=== PATIENT | male | born 1945 | race Caucasian/White ===

== ENCOUNTER → 2016-07-29 | Outpatient (CLI) | payer MEDICARE, OTHER ==
[~2016-07-29] MED LIST: ALBU8I INH; ALLO100T PO; ATOR20TA PO; ATOR20TA15 PO; CARV12.5 PO; CARV12.52 PO; CARV25TA PO; CIPR500T2 PO; DEPA500T PO; DIGO0.12 PO; DIVA500T3 PO; ENAL5 PO; FORACAP INH; FURO1TAB62 PO; FURO20TA PO; HUMU70IN SQ; HYDR-3516 PO; MULT-135 PO; NOVO7030P2 SQ; NOVOLOGSS SQ; NOVORP2 SQ; OLOD1AER2; PACE100T2 PO; RIVA15 PO; SACU1TAB PO; SPIR25 PO; ST JTAB PO; TAB-TAB PO; VASO10TA8 PO; VENTAER INH; VITA10003 PO; VITA2000 PO; XARE15TA PO; ZITH250T PO
[2016-07-29 10:55] LABS: BASOPHIL % 0.5 % (0.0-2.0); EOSINOPHIL # 0.3 TH/MM3 (0-0.4); EOSINOPHIL % 4.6 % (0.0-4.0); HEMATOCRIT 38.6 % (39.0-51.0); HEMO FLAGS DIFF FINAL; LYMPH % 36.1 % (9.0-44.0); LYMPHOCYTE # 2.2 TH/MM3 (1.0-4.8); MEAN CELL VOLUME 97.3 FL (80.0-100.0); MEAN CORPUSCULAR HEMOGLOBIN 33.1 PG (27.0-34.0); MEAN CORPUSCULAR HGB CONC 34.1 % (32.0-36.0); MONO % 8.8 % (0.0-8.0); PLATELET COUNT 190 TH/MM3 (150-450); RED BLOOD COUNT 3.97 MIL/MM3 (4.50-5.90); RED CELL DISTRIBUTION WIDTH 15.6 % (11.6-17.2)
[2016-07-29 11:18] LABS: BICARBONATE 29.5 MEQ/L (21.0-32.0); POTASSIUM 4.7 MEQ/L (3.5-5.1)
== END ==
LOC: CLAB 10:28
PROVIDERS: ATTEND Internal Medicine Nephrology
DX: I12.9 Hypertensive chronic kidney disease with stage 1 through stage 4 chronic kidney disease, or unspecified chronic kidney disease (principal); N18.3 Chronic kidney disease, stage 3 (moderate); E11.29 Type 2 diabetes mellitus with other diabetic kidney complication; E55.9 Vitamin D deficiency, unspecified
CPT/HCPCS: 36415; 80069; 82306; 83970; 85025

== ENCOUNTER → 2016-10-16 | Outpatient (CLI) | payer MEDICARE, OTHER ==
[2016-10-16 10:45] LABS: AUTOMATED NEUTROPHIL # 3.5 TH/MM3 (1.8-7.7); BASOPHIL % 0.6 % (0.0-2.0); EOSINOPHIL # 0.5 TH/MM3 (0-0.4); EOSINOPHIL % 7.7 % (0.0-4.0); HEMATOCRIT 38.2 % (39.0-51.0); HEMO FLAGS DIFF FINAL; LYMPH % 22.9 % (9.0-44.0); LYMPHOCYTE # 1.6 TH/MM3 (1.0-4.8); MEAN CORPUSCULAR HEMOGLOBIN 32.7 PG (27.0-34.0); MEAN CORPUSCULAR HGB CONC 33.7 % (32.0-36.0); MONO % 17.9 % (0.0-8.0); NEUT % 50.9 % (16.0-70.0); PLATELET COUNT 197 TH/MM3 (150-450); RED BLOOD COUNT 3.93 MIL/MM3 (4.50-5.90); RED CELL DISTRIBUTION WIDTH 14.4 % (11.6-17.2); WHITE BLOOD COUNT 6.9 TH/MM3 (4.0-11.0)
[2016-10-16 11:11] LABS: ALKALINE PHOSPHATASE 137 U/L (45-117); ALT (GPT) 29 U/L (12-78); ANION GAP 7 MEQ/L (5-15); AST (GOT) 34 U/L (15-37); BICARBONATE 27.6 MEQ/L (21.0-32.0); BLOOD UREA NITROGEN 21 MG/DL (7-18); CHLORIDE 104 MEQ/L (98-107); GLOMERULAR FILTRATION RATE 42 ML/MIN (>89); GLUCOSE,FASTING 154 MG/DL (74-99); POTASSIUM 4.2 MEQ/L (3.5-5.1); SODIUM (NA) 139 MEQ/L (136-145); TOTAL BILIRUBIN ADULT 0.7 MG/DL (0.2-1.0)
== END ==
LOC: CLAB 10:19
PROVIDERS: ATTEND Family Medicine
DX: E11.9 Type 2 diabetes mellitus without complications (principal); R68.83 Chills (without fever); R06.02 Shortness of breath
CPT/HCPCS: 36415; 80053; 83880; 85025

== ENCOUNTER 2016-10-19 17:42 | Emergency (ER) | payer MEDICARE, OTHER ==
[~2016-10-19] VITALS: Ht 170.2 cm; Wt 90.0 kg
[~2016-10-19 17:42] MED LIST changes: -ATOR20TA15 PO; -CARV25TA PO; -CIPR500T2 PO; -DIVA500T3 PO; -FURO1TAB62 PO; -FURO20TA PO; -HUMU70IN SQ; -HYDR-3516 PO; -MULT-135 PO; -NOVORP2 SQ; -OLOD1AER2; -SACU1TAB PO; -VASO10TA8 PO; -VENTAER INH; -VITA10003 PO; -VITA2000 PO; -XARE15TA PO
[2016-10-19 17:46] VITALS: BP 124/64; PULSE 77; RESP 17; TEMP 97.7; O2SAT 91
[2016-10-19] MEDS ORDERED: methylPREDNISolone SOD SUCC 125 MG/2 ML VIAL IVP ONE (18:00)
[2016-10-19] MEDS ORDERED: SODIUM CHLORIDE 0.9% FLUSH 10 ML FLUSH IVF PRN (18:00)
[2016-10-19 18:03] VITALS: RESP 20; O2SAT 97
--- NOTE | 2016-10-19 18:24 | PD ---
HPI Chief Complaint: Respiratory Symptoms Time Seen by Provider: 18:24 Travel History International Travel<30 days: No Contact w/Intl Traveler<30days: No Traveled to known affect area: No History of Present Illness HPI 71-year-old male with history of CHF, COPD, CAD, hypertension, previous NE, on Xarelto, diabetes, presents to the emergency department for evaluation of worsening shortness of breath over the last 2 weeks. Patient states that this is at night when he is lying flat. It is primarily between the hours of 2 and 5 in the morning. He has been seen and evaluated by Dr. Dixon his right of way appraiser and Dr. Sandoval his primary care provider. He has been reassured and told that "nothing is wrong." Patient came in today for another opinion stating that it continues to happen at night. Denies any chest pain or tightness. No recent illnesses, fever, or chills. Patient denies any pain. He has had no other symptoms to report at this time. PFSH Past Medical History Hx Anticoagulant Therapy: Yes (XARELTO) Asthma: Yes Blood Disorders: No Anxiety: Yes ( ) Depression: Yes ( ) Heart Rhythm Problems: No Cancer: No Cardiovascular Problems: Yes (STENT X1 2001, PACEMAKER/DEFIBRILLATOR 2014, NE 2001, CHF 2004 & NOVEMBER 2014) High Cholesterol: Yes Chemotherapy: No Chest Pain: Yes (IN 2001.) Congestive Heart Failure: Yes COPD: Yes Diabetes: Yes (INSULIN DEPENDENT TYPE 2) Patient Takes Glucophage: No Diminished Hearing: Yes (nusrat hearing aids) Endocrine: No Gastrointestinal Disorders: No Glaucoma: No Genitourinary: No Hepatitis: Yes (DENIES) Hiatal Hernia: No Hypertension: Yes Immune Disorder: No Musculoskeletal: No Neurologic: No Psychiatric: Yes Reproductive: No Respiratory: Yes Immunizations Current: Yes Myocardial Infarction: Yes (IN 2001, STENT PLACED.) Radiation Therapy: No Thyroid Disease: No Tetanus Vaccination: > 5 Years Past Surgical History Abdominal Surgery: Yes (SHRAPNEL REMOVED FROM LEFT LOWER QUAD IN "THE 60'S") AICD: Yes Arteriovenous Shunt: No Body Medical Devices: SHRAPNEL REMOVED LLQ IN THE S. Cardiac Surgery: Yes (STENT 2001) Ear Surgery: No Endocrine Surgery: No Eye Surgery: No Genitourinary Surgery: No Gynecologic Surgery: No Insulin Pump: No Joint Replacement: No Pacemaker: Yes (PPM/ICD 09/2014) Thoracic Surgery: No Tonsillectomy: Yes Other Surgery: Yes Social History Alcohol Use: Yes (rare) Tobacco Use: No (QUIT 1987) Substance Use: No Allergies-Medications (Allergen,Severity, Reaction): Coded Allergies: No Known Allergies (Verified , 10/19/16) Reported Meds & Prescriptions Reported Meds & Active Scripts Active Reported Ventolin Hfa 18 GM Inh (Albuterol Sulfate) 90 Mcg/Act Aer 2 Puff INH BID PRN Vitamin D-3 (Cholecalciferol) 1,000 Unit Tab 2,000 Units PO DAILY Xarelto (Rivaroxaban) 15 Mg Tab 15 Mg PO DAILY Multi Vitamin (Multiple Vitamin) 1 Tab Tab 1 Tab PO DAILY Humulin 70-30 Inj (Insulin NPH Isophane-Reg (Human) 70-30 Inj) 1,000 Unit/10 Ml Vial 15 SQ BID Novolin R Inj (Insulin Human Regular) 1,000 Unit/10 Ml Vial 5 Units SQ HS Novolin R Inj (Insulin Human Regular) 1,000 Unit/10 Ml Vial 4 Units SQ AC LUNCH Novolin R Inj (Insulin Human Regular) 1,000 Unit/10 Ml Vial 7 Units SQ DAILY Lasix (Furosemide) 20 Mg Tab 20 Mg PO DAILY Vasotec (Enalapril Maleate) 10 Mg Tab 10 Mg PO BID Digoxin 0.125 Mg Tab 0.125 Mg PO DAILY Carvedilol 12.5 Mg Tab 12.5 Mg PO DAILY@1600 Carvedilol 25 Mg Tab 25 Mg PO DAILY Atorvastatin (Atorvastatin Calcium) 20 Mg Tab 20 Mg PO HS Allopurinol 100 Mg Tab 100 Mg PO DAILY Foradil Aerolizer (Formoterol Fumarate) Cap 12.5 Mcg INH BID Review of Systems Except as stated in HPI: all other systems reviewed are Neg Physical Exam Narrative GENERAL: Well-nourished male patient, in no acute distress SKIN: Focused skin assessment warm/dry. HEAD: Atraumatic. Normocephalic. EYES: Pupils equal and round. No scleral icterus. No injection or drainage. ENT: No nasal bleeding or discharge. Mucous membranes pink and moist. NECK: Trachea midline. No JVD. CARDIOVASCULAR: Regular rate and rhythm. No murmur appreciated. RESPIRATORY: No accessory muscle use. Diminished bases but overall Clear to auscultation. Breath sounds equal bilaterally. GASTROINTESTINAL: Abdomen soft, non-tender, nondistended. Hepatic and splenic margins not palpable. MUSCULOSKELETAL: No obvious deformities. No clubbing. No cyanosis. No edema. NEUROLOGICAL: Awake and alert. No obvious cranial nerve deficits. Motor grossly within normal limits. Normal speech. PSYCHIATRIC: Appropriate mood and affect; insight and judgment normal. Data Data Last Documented VS Vital Signs Date Time Temp Pulse Resp B/P Pulse Ox O2 Delivery O2 Flow Rate FiO2 10/19/16 20:12 60 16 114/58 96 Nasal Cannula 2 10/19/16 18:31 21 10/19/16 17:46 97.7 Orders Complete Blood Count With Diff (10/19/16 17:55) Basic Metabolic Panel (Bmp) (10/19/16 17:55) B-Type Natriuretic Peptide (10/19/16 17:55) Act Partial Throm Time (Ptt) (10/19/16 17:55) Prothrombin Time / Inr (Pt) (10/19/16 17:55) Ckmb (Isoenzyme) Profile (10/19/16 17:55) Troponin I (10/19/16 17:55) Influenzae A/B Antigen (10/19/16 17:55) Iv Access Insert/Monitor (10/19/16 17:55) Electrocardiogram (10/19/16 17:55) Ecg Monitoring (10/19/16 17:55) Oximetry (10/19/16 17:55) Oxygen Administration (10/19/16 17:55) Chest, Single Ap (10/19/16 17:55) Sodium Chloride 0.9% Flush (Ns Flush) (10/19/16 18:00) Methylprednisolone So Succ Inj (Solumedr (10/19/16 18:00) Albuterol-Ipratropium Neb (Duoneb Neb) (10/19/16 18:00) Furosemide Inj (Lasix Inj) (10/19/16 20:00) Labs Laboratory Tests Test 10/19/16 18:00 White Blood Count 6.7 TH/MM3 Red Blood Count 3.85 MIL/MM3 Hemoglobin 12.5 GM/DL Hematocrit 37.3 % Mean Corpuscular Volume 96.7 FL Mean Corpuscular Hemoglobin 32.4 PG Mean Corpuscular Hemoglobin 33.5 % Concent Red Cell Distribution Width 14.5 % Platelet Count 217 TH/MM3 Mean Platelet Volume 8.6 FL Neutrophils (%) (Auto) 55.8 % Lymphocytes (%) (Auto) 18.3 % Monocytes (%) (Auto) 16.7 % Eosinophils (%) (Auto) 8.5 % Basophils (%) (Auto) 0.7 % Neutrophils # (Auto) 3.7 TH/MM3 Lymphocytes # (Auto) 1.2 TH/MM3 Monocytes # (Auto) 1.1 TH/MM3 Eosinophils # (Auto) 0.6 TH/MM3 Basophils # (Auto) 0.0 TH/MM3 CBC Comment DIFF FINAL Differential Comment Prothrombin Time 14.1 SEC Prothromb Time International 1.3 RATIO Ratio Activated Partial 34.8 SEC Thromboplast Time Sodium Level 140 MEQ/L Potassium Level 4.7 MEQ/L Chloride Level 103 MEQ/L Carbon Dioxide Level 29.4 MEQ/L Anion Gap 8 MEQ/L Blood Urea Nitrogen 16 MG/DL Creatinine 1.54 MG/DL Estimat Glomerular Filtration 45 ML/MIN Rate Random Glucose 171 MG/DL Calcium Level 8.8 MG/DL Total Creatine Kinase 61 U/L Troponin I 0.05 NG/ML B-Type Natriuretic Peptide 537 PG/ML MDM Medical Decision Making Medical Screen Exam Complete: Yes Emergency Medical Condition: Yes Medical Record Reviewed: Yes Differential Diagnosis CHF versus CHF exacerbation versus COPD versus pneumonia versus influenza versus bronchospasm versus GERD Narrative Course 71-year-old male presents to the emergency department for evaluation shortness breath associated with lying flat, mostly in the early hours of the morning. Patient as extensive cardiac and pulmonary history. He is followed by right of way appraiser and has good follow-up with his primary care provider. Chest x- ray shows lungs are clear with no infiltrates identified. CBC is without acute concern. BMP is with renal insufficiency, chronic for the patient. Troponin is 0.05. Patient has been found to have elevated troponin in the past. He is not having any chest pain or tightness. EKG is without any acute findings. Reviewed by my attending physician Dr. Nunez. BNP is 537. This is slightly elevated with compared to BNP drawn on October 16. At that time was 440. Patient will be given an additional dose of Lasix here in the emergency department. I discussed the patient my attending physician. He'll be discharged home to follow-up with Dr. Sandoval. He is comfortable with the plan of care. He agrees to return immediately with any acute worsening symptoms. Diagnosis Primary Impression: Orthopnea Additional Impressions: History of COPD CHF (congestive heart failure) Qualified Code: I50.9 - Chronic congestive heart failure, unspecified congestive heart failure type Referrals: Karla Sandoval Jr., MD Patient Instructions: Dyspnea (ED), General Instructions Additional Instructions: Follow-up with your primary care provider Follow-up with your right of way appraiser Continue medication as already prescribed Return immediately with any acute worsening of symptoms Med/Other Pt SpecificInfo: No Change to Meds Disposition: 01 DISCHARGE HOME Condition: Stable Betzaida Manley Oct 19, 2016 18:24
[2016-10-19 18:31] VITALS: O2SAT 94
[2016-10-19] MEDS: RESP: ALBUTEROL 2.5 MG/IPRATROPIUM 0.5 MG NEB (SCH) INH (18:31)
[2016-10-19] MEDS ORDERED: CARV12.52 PO (18:33)
[2016-10-19] MEDS ORDERED: NOVORP2 SQ ×3 (18:33)
[2016-10-19] MEDS ORDERED: DIGO0.12 PO (18:33)
[2016-10-19] MEDS ORDERED: VASO10TA8 PO (18:33)
[2016-10-19] MEDS ORDERED: VENTAER INH (18:33)
[2016-10-19] MEDS ORDERED: FURO1TAB62 PO (18:33)
[2016-10-19] MEDS ORDERED: XARE15TA PO (18:33)
[2016-10-19] MEDS ORDERED: CARV25TA PO (18:33)
[2016-10-19] MEDS ORDERED: VITA10003 PO (18:33)
[2016-10-19] MEDS ORDERED: HUMU70IN SQ (18:33)
[2016-10-19] MEDS ORDERED: ATOR20TA15 PO (18:33)
[2016-10-19] MEDS ORDERED: MULT-135 PO (18:33)
[2016-10-19] MEDS ORDERED: ALLO100T PO (18:33)
[2016-10-19 18:41] LABS: AUTOMATED NEUTROPHIL # 3.7 TH/MM3 (1.8-7.7); BASOPHIL % 0.7 % (0.0-2.0); EOSINOPHIL # 0.6 TH/MM3 (0-0.4); EOSINOPHIL % 8.5 % (0.0-4.0); HEMATOCRIT 37.3 % (39.0-51.0); HEMO FLAGS DIFF FINAL; LYMPH % 18.3 % (9.0-44.0); LYMPHOCYTE # 1.2 TH/MM3 (1.0-4.8); MEAN CELL VOLUME 96.7 FL (80.0-100.0); MEAN CORPUSCULAR HEMOGLOBIN 32.4 PG (27.0-34.0); MEAN CORPUSCULAR HGB CONC 33.5 % (32.0-36.0); MONO % 16.7 % (0.0-8.0); NEUT % 55.8 % (16.0-70.0); PLATELET COUNT 217 TH/MM3 (150-450); RED BLOOD COUNT 3.85 MIL/MM3 (4.50-5.90); RED CELL DISTRIBUTION WIDTH 14.5 % (11.6-17.2); WHITE BLOOD COUNT 6.7 TH/MM3 (4.0-11.0)
[2016-10-19 18:49] LABS: APTT (PATIENT) 34.8 SEC (24.3-30.1); INTERNATIONAL NORMALIZED RATIO 1.3 RATIO; PROTHROMBIN TIME - PATIENT 14.1 SEC (9.8-11.6)
[2016-10-19 19:00] VITALS: BP 116/58; PULSE 60; RESP 20; O2SAT 100
[2016-10-19 19:09] LABS: BICARBONATE 29.4 MEQ/L (21.0-32.0); POTASSIUM 4.7 MEQ/L (3.5-5.1)
--- NOTE | 2016-10-19 19:09 | RADRPT ---
EXAM DATE/TIME: 10/19/2016 18:21 [facility] COMPARISON: CHEST PA & LAT, August 24, 2015, 21:12. CHEST SINGLE AP, April 15, 2015, 9:17. INDICATIONS : Short of breath. MEDICAL HISTORY : Chronic obstructive pulmonary disease. SURGICAL HISTORY : Pacemaker. ENCOUNTER: Initial ACUITY: 1 week PAIN SCORE: 0/10 LOCATION: chest FINDINGS: A single view of the chest demonstrates the lungs to be symmetrically aerated without evidence of mas s, infiltrate or effusion. No evidence of pneumothorax. The cardiomediastinal contours are unremark able. Osseous structures are intact. Cardiac pacer with bipolar leads in place. CONCLUSION: The lungs are clear. No infiltrates seen. Khoi Kemp MD on October 19, 2016 at 19:06 Board Certified Radiologist. This report was verified electronically.
[2016-10-19] MEDS ORDERED: FUROSEMIDE 20 MG/2 ML VIAL IV PUSH ONE (20:00)
[2016-10-19 20:12] VITALS: BP 114/58; PULSE 60; RESP 16; O2SAT 96
--- NOTE | 2016-10-19 23:49 | EKG ---
Date Performed: 10/19/2016 Time Performed: 18:21:54 PTAGE: 71 years EKG: ELECTRONIC ATRIALand Ventricular PACEMAKER BORDERLINE RIGHT AXIS DEVIATION ABNORMAL ECG PREVIOUS TRACING : 12/11/2014 19.39 DOCTOR: Bernadette White Interpretating Date/Time 10/19/2016 23:48:35
[2016-11-21] MEDS ORDERED: CARV12.52 PO (14:34)
== END 2016-10-19 21:05 | disposition home or self-care (01) ==
LOC: NEPA 17:42
DX: R06.01 Orthopnea (principal); I50.9 Heart failure, unspecified; R94.31 Abnormal electrocardiogram [ECG] [EKG]; I10 Essential (primary) hypertension; E11.9 Type 2 diabetes mellitus without complications; I25.2 Old myocardial infarction; E78.00 Pure hypercholesterolemia, unspecified; H91.93 Unspecified hearing loss, bilateral; Z79.4 Long term (current) use of insulin; Z79.01 Long term (current) use of anticoagulants; Z87.09 Personal history of other diseases of the respiratory system; Z86.79 Personal history of other diseases of the circulatory system; Z86.59 Personal history of other mental and behavioral disorders; Z87.891 Personal history of nicotine dependence
CPT/HCPCS: 71010; 80048; 82550; 83880; 84484; 85025; 85610; 85730; 87804; 93005; 94640; 94664; 96374; 96375; 99285; J1940; J2930

== ENCOUNTER → 2016-11-07 | Outpatient (CLI) | payer MEDICARE, OTHER ==
[~2016-11-07] MED LIST changes: -ALBU8I INH; -ATOR20TA PO; +ATOR20TA15 PO; -CARV12.5 PO; +CARV25TA PO; +CIPR500T2 PO; -DEPA500T PO; +DIVA500T3 PO; -ENAL5 PO; +FURO1TAB62 PO; +FURO20TA PO; +HUMU70IN SQ; +HYDR-3516 PO; +MULT-135 PO; -NOVO7030P2 SQ; -NOVOLOGSS SQ; +NOVORP2 SQ; +OLOD1AER2; -PACE100T2 PO; -RIVA15 PO; +SACU1TAB PO; -SPIR25 PO; -ST JTAB PO; -TAB-TAB PO; +VASO10TA8 PO; +VENTAER INH; +VITA10003 PO; +VITA2000 PO; +XARE15TA PO; -ZITH250T PO
--- NOTE | 2016-11-13 08:30 | RSPPFT ---
DATE OF PROCEDURE: 11/07/16 COMMENTS: VOLUMES DYNAMIC: FVC normal; FEV1 moderately reduced. STATIC: RV moderately increased, FRC mildly increased, TLC normal. FLOWS: FEV1% moderately reduced; FEF 25-75 severely reduced. DIFFUSION: Severely reduced. FLOW VOLUME LOOP: Pattern of variable intrathoracic airways obstruction. IMPRESSION: Moderately severe obstructive ventilatory defect with a severe reduction in diffusion and moderate hyperinflation. There is no improvement post-bronchodilator.
== END ==
LOC: HRSP 09:26
PROVIDERS: ATTEND Internal Medicine
DX: J44.9 Chronic obstructive pulmonary disease, unspecified (principal)
CPT/HCPCS: 94060; 94620; 94726; 94729

== ENCOUNTER 2016-12-15 10:37 | Observation (INO) | payer MEDICARE, OTHER ==
[~2016-12-15] VITALS: Ht 172.7 cm; Wt 85.0 kg
[~2016-12-15 10:37] MED LIST changes: -CARV25TA PO; -CIPR500T2 PO; -DIVA500T3 PO; -FORACAP INH; -FURO20TA PO; -HYDR-3516 PO; -OLOD1AER2; -SACU1TAB PO; -VASO10TA8 PO; -VITA2000 PO
[2016-12-15 10:41] VITALS: BP 80/44; PULSE 76; RESP 15; TEMP 97.7; O2SAT 98
[2016-12-15 11:23] LABS: AUTOMATED NEUTROPHIL # 3.8 TH/MM3 (1.8-7.7); BASOPHIL % 0.6 % (0.0-2.0); EOSINOPHIL # 0.2 TH/MM3 (0-0.4); EOSINOPHIL % 2.4 % (0.0-4.0); HEMATOCRIT 39.4 % (39.0-51.0); HEMO FLAGS DIFF FINAL; LYMPH % 18.7 % (9.0-44.0); LYMPHOCYTE # 1.2 TH/MM3 (1.0-4.8); MEAN CELL VOLUME 96.6 FL (80.0-100.0); MEAN CORPUSCULAR HEMOGLOBIN 31.8 PG (27.0-34.0); MEAN CORPUSCULAR HGB CONC 32.9 % (32.0-36.0); MONO % 18.6 % (0.0-8.0); NEUT % 59.7 % (16.0-70.0); PLATELET COUNT 131 TH/MM3 (150-450); RED BLOOD COUNT 4.08 MIL/MM3 (4.50-5.90); RED CELL DISTRIBUTION WIDTH 16.2 % (11.6-17.2); WHITE BLOOD COUNT 6.4 TH/MM3 (4.0-11.0)
[2016-12-15 11:35] LABS: BACTERIA, URINE MANY /hpf; BLOOD, URINE LARGE (NEG); COMMENT (UR) CULTURE INDICATED; CULTURE IF INDICATED CULTURE INDICATED; GLUCOSE,URINE NEG (NEG); KETONE, URINE NEG (NEG); NITRITE,URINE NEG (NEG); PH, URINE 5.5 (5.0-8.5); URINE COLOR DARK-YELLOW (YELLW/STRAW)
[2016-12-15 11:38] LABS: ALT (GPT) 50 U/L (12-78); ANION GAP 9 MEQ/L (5-15); AST (GOT) 47 U/L (15-37); BICARBONATE 27.9 MEQ/L (21.0-32.0); BLOOD UREA NITROGEN 28 MG/DL (7-18); CHLORIDE 103 MEQ/L (98-107); GLOMERULAR FILTRATION RATE 30 ML/MIN (>89); POTASSIUM 4.2 MEQ/L (3.5-5.1); SODIUM (NA) 140 MEQ/L (136-145)
[2016-12-15 11:42] LABS: ALKALINE PHOSPHATASE 141 U/L (45-117); TOTAL BILIRUBIN ADULT 0.5 MG/DL (0.2-1.0)
[2016-12-15] MEDS ORDERED: cefTRIAXone INJ 1,000 MG in SODIUM CHLORIDE 0.9% INJ 100 ML IV ONE (12:15)
--- NOTE | 2016-12-15 12:16 | PD ---
HPI Chief Complaint: Abdominal Pain Time Seen by Provider: 10:47 Travel History International Travel<30 days: No Contact w/Intl Traveler<30days: No Traveled to known affect area: No History of Present Illness HPI This is a 71-year-old male who presents to the emergency department with 3 days of difficulty urinating, feeling like he has to strain to urinate associated with urgency and hesitancy with some dysuria. Today he says he feels a bandlike pressure around his abdomen, constant, moderate severity, with no associated fevers, chills or vomiting. He's never had pain like this before. PFSH Past Medical History Hx Anticoagulant Therapy: Yes (XARELTO) Asthma: Yes Blood Disorders: No Anxiety: Yes ( ) Depression: Yes ( ) Heart Rhythm Problems: No Cancer: No Cardiovascular Problems: Yes High Cholesterol: Yes Chemotherapy: No Chest Pain: Yes (IN 2001.) Congestive Heart Failure: Yes COPD: Yes Diabetes: Yes Patient Takes Glucophage: No Diminished Hearing: Yes (nusrat hearing aids) Endocrine: No Gastrointestinal Disorders: No Glaucoma: No Genitourinary: No Hepatitis: Yes (DENIES) Hiatal Hernia: No Hypertension: Yes Immune Disorder: No Musculoskeletal: No Neurologic: No Psychiatric: Yes Reproductive: No Respiratory: Yes Immunizations Current: Yes Myocardial Infarction: Yes (IN 2001, STENT PLACED.) Radiation Therapy: No Thyroid Disease: No Past Surgical History Abdominal Surgery: Yes (SHRAPNEL REMOVED FROM LEFT LOWER QUAD IN "THE 60'S") AICD: Yes Arteriovenous Shunt: No Body Medical Devices: SHRAPNEL REMOVED LLQ IN THE S. Cardiac Surgery: Yes (STENT 2001) Ear Surgery: No Endocrine Surgery: No Eye Surgery: No Genitourinary Surgery: No Gynecologic Surgery: No Insulin Pump: No Joint Replacement: No Pacemaker: Yes (PPM/ICD 09/2014) Thoracic Surgery: No Tonsillectomy: Yes Other Surgery: Yes Social History Alcohol Use: Yes (rare) Tobacco Use: No (QUIT 1987) Substance Use: No Allergies-Medications (Allergen,Severity, Reaction): Coded Allergies: Hydrocodone (Verified Allergy, Intermediate, Causes Itching, 11/21/16) Reported Meds & Prescriptions Reported Meds & Active Scripts Active Reported Carvedilol 12.5 Mg Tab 12.5 Mg PO BID Ventolin Hfa 18 GM Inh (Albuterol Sulfate) 90 Mcg/Act Aer 2 Puff INH BID PRN Vitamin D-3 (Cholecalciferol) 1,000 Unit Tab 2,000 Units PO DAILY Xarelto (Rivaroxaban) 15 Mg Tab 15 Mg PO DAILY Multi Vitamin (Multiple Vitamin) 1 Tab Tab 1 Tab PO DAILY Humulin 70-30 Inj (Insulin NPH Isophane-Reg (Human) 70-30 Inj) 1,000 Unit/10 Ml Vial 15 SQ BID Novolin R Inj (Insulin Human Regular) 1,000 Unit/10 Ml Vial 5 Units SQ HS Novolin R Inj (Insulin Human Regular) 1,000 Unit/10 Ml Vial 4 Units SQ AC LUNCH Novolin R Inj (Insulin Human Regular) 1,000 Unit/10 Ml Vial 7 Units SQ DAILY Lasix (Furosemide) 20 Mg Tab 20 Mg PO DAILY Digoxin 0.125 Mg Tab 0.125 Mg PO DAILY Atorvastatin (Atorvastatin Calcium) 20 Mg Tab 20 Mg PO HS Allopurinol 100 Mg Tab 100 Mg PO DAILY Review of Systems Except as stated in HPI: all other systems reviewed are Neg Physical Exam Narrative GENERAL:Well appearing, no acute distress SKIN: Focused skin assessment warm and dry. HEAD: Atraumatic. Normocephalic. EYES: Pupils equal and round. No injection or drainage. ENT: Moist mucous membranes NECK: Trachea midline. CARDIOVASCULAR: Regular rate and rhythm. No murmur appreciated. RESPIRATORY: Clear to auscultation. Breath sounds equal bilaterally. GASTROINTESTINAL: Abdomen soft, mildly tender to palpation in the suprapubic region with no rebound or guarding. MUSCULOSKELETAL: No obvious deformities. NEUROLOGICAL: Awake and alert. No obvious cranial nerve deficits. Moving all extremities. PSYCHIATRIC: Appropriate mood and affect; insight and judgment normal. Data Data Last Documented VS Vital Signs Date Time Temp Pulse Resp B/P Pulse Ox O2 Delivery O2 Flow Rate FiO2 12/15/16 10:41 97.7 76 15 80/44 98 Orders Ed Poc Ultrasound (12/15/16 ) Electrocardiogram (12/15/16 ) Complete Blood Count With Diff (12/15/16 11:01) Comprehensive Metabolic Panel (12/15/16 11:01) ^ Insert Iv (12/15/16 11:01) Urinalysis - C+S If Indicated (12/15/16 11:01) Troponin I (12/15/16 11:01) Urinary Catheter Insert/Apply (12/15/16 11:01) Urine Culture (12/15/16 11:15) Ct Abd/Pel W/O Iv Contrast (12/15/16 ) Ceftriaxone Inj (Rocephin Inj) (12/15/16 12:15) Sodium Chlor 0.9% 1000 Ml Inj (Ns 1000 M (12/15/16 12:45) Sodium Chlorid 0.9% 500 Ml Inj (Ns 500 M (12/15/16 12:45) Lactic Acid (12/15/16 13:02) Admit Order (Ed Use Only) (12/15/16 13:03) Labs Laboratory Tests Test 12/15/16 11:15 White Blood Count 6.4 TH/MM3 Red Blood Count 4.08 MIL/MM3 Hemoglobin 13.0 GM/DL Hematocrit 39.4 % Mean Corpuscular Volume 96.6 FL Mean Corpuscular Hemoglobin 31.8 PG Mean Corpuscular Hemoglobin 32.9 % Concent Red Cell Distribution Width 16.2 % Platelet Count 131 TH/MM3 Mean Platelet Volume 9.3 FL Neutrophils (%) (Auto) 59.7 % Lymphocytes (%) (Auto) 18.7 % Monocytes (%) (Auto) 18.6 % Eosinophils (%) (Auto) 2.4 % Basophils (%) (Auto) 0.6 % Neutrophils # (Auto) 3.8 TH/MM3 Lymphocytes # (Auto) 1.2 TH/MM3 Monocytes # (Auto) 1.2 TH/MM3 Eosinophils # (Auto) 0.2 TH/MM3 Basophils # (Auto) 0.0 TH/MM3 CBC Comment DIFF FINAL Differential Comment Urine Color DARK-YELLOW Urine Turbidity CLOUDY Urine pH 5.5 Urine Specific [place] 1.019 Urine Protein 100 mg/dL Urine Glucose (UA) NEG mg/dL Urine Ketones NEG mg/dL Urine Occult Blood LARGE Urine Nitrite NEG Urine Bilirubin NEG Urine Urobilinogen 2.0 MG/DL Urine Leukocyte Esterase LARGE Urine RBC /hpf Urine WBC /hpf Urine WBC Clumps MANY Urine Bacteria MANY /hpf Microscopic Urinalysis Comment CULTURE INDICATED Sodium Level 140 MEQ/L Potassium Level 4.2 MEQ/L Chloride Level 103 MEQ/L Carbon Dioxide Level 27.9 MEQ/L Anion Gap 9 MEQ/L Blood Urea Nitrogen 28 MG/DL Creatinine 2.16 MG/DL Estimat Glomerular Filtration 30 ML/MIN Rate Random Glucose 220 MG/DL Calcium Level 8.4 MG/DL Total Bilirubin 0.5 MG/DL Aspartate Amino Transf 47 U/L (AST/SGOT) Alanine Aminotransferase 50 U/L (ALT/SGPT) Alkaline Phosphatase 141 U/L Troponin I 0.03 NG/ML Total Protein 6.8 GM/DL Albumin 2.8 GM/DL MDM Medical Decision Making Medical Screen Exam Complete: Yes Emergency Medical Condition: Yes Interpretation(s) Afebrile, no tachycardia, normotensive No leukocytosis Mild renal insufficiency Lactic acid is 1.2 Troponin is 0.03 Urinalysis: Infection Differential Diagnosis Urinary tract infection, obstructive uropathy, aortic aneurysm, myocardial infarction Narrative Course This is a 71-year-old male who presents to the emergency department with difficulty urinating and bandlike pain around his abdomen. On arrival he had a low blood pressure which was concerning to me for a possible ruptured abdominal aortic aneurysm. I performed a bedside ultrasound which was reassuring. We obtained a post void residual which was normal. Labs are obtained which were reassuring with the exception of worsening renal insufficiency. Patient also has evidence of a urinary tract infection. Given his isolated low blood pressure on arrival, worsening renal insufficiency and urinary tract infection I think it's reasonable to keep the patient for IV antibiotics and gentle IV hydration. He does have cardiomyopathy which makes his hydration more complicated and I think he would benefit from observation in the hospital. Diagnosis Primary Impression: Cystitis Admitting Information Admitting Physician Requests: Observation Candice Nixon MD December 15, 2016 12:15
--- NOTE | 2016-12-15 12:19 | RADRPT ---
EXAM DATE/TIME: 12/15/2016 12:01 [facility] COMPARISON: No previous studies available for comparison. INDICATIONS : Low abdomen pain. trouble urinating and constipation ORAL CONTRAST: No oral contrast ingested. RADIATION DOSE: 13.17 CTDIvol (mGy) MEDICAL HISTORY : Congestive heart failure. Hypertension. Hepatitis. SURGICAL HISTORY : None. ENCOUNTER: Initial ACUITY: 1 day PAIN SCALE: 6/10 LOCATION: Bilateral lower quadrant TECHNIQUE: Volumetric scanning of the abdomen and pelvis was performed. Using automated exposure control and ad justment of the mA and/or kV according to patient size, radiation dose was kept as low as reasonably achievable to obtain optimal diagnostic quality images. FINDINGS: LOWER LUNGS: The visualized lower lungs are clear. Cardiac pacing wire is present in the right heart. LIVER: Diffuse mild low density without lesion. There is no dilation of the biliary tree. No calcified gal lstones. SPLEEN: Mildly enlarged measuring 13.5 cm in length. PANCREAS: Within normal limits. KIDNEYS: Normal in size and shape. There is no mass, stone, or hydronephrosis. ADRENAL GLANDS: Within normal limits. VASCULAR: There is no aortic aneurysm. There is mild atherosclerotic disease. BOWEL/MESENTERY: The stomach, small bowel, and colon demonstrate no acute abnormality. There is no free intraperitone al air or fluid. There is sigmoid diverticulosis. ABDOMINAL WALL: Within normal limits. RETROPERITONEUM: There is no lymphadenopathy. BLADDER: No wall thickening or mass. There is questionable mild induration of the pericystic fat. REPRODUCTIVE: Within normal limits. INGUINAL: There is no lymphadenopathy or hernia. MUSCULOSKELETAL: No acute osseous abnormality is visualized. CONCLUSION: 1. No definite abnormality is identified to explain the clinical symptoms. However, there is question able mild inflammation surrounding the urinary bladder which can be seen with cystitis. No significan t bladder wall thickening is present. 2. Nonacute findings include hepatic steatosis, mild splenomegaly, sigmoid diverticulosis, and mild a therosclerotic disease. Felice Wisdom MD on December 15, 2016 at 12:14 Board Certified Radiologist. This report was verified electronically.
[2016-12-15] MEDS ORDERED: SODIUM CHLOR 0.9% 1000 ML INJ 1,000 ML IV SCH (12:45)
[2016-12-15] MEDS ORDERED: SODIUM CHLORID 0.9% 500 ML INJ 500 ML IV ONE (12:45)
--- NOTE | 2016-12-15 13:05 | HHI.HP ---
[facility] Service Family Medicine Primary Care Physician Unknown Admission Diagnosis urinary tract infection Diagnoses: International Travel<30 Days: No Contact w/Intl Traveler<30days: No Known Affected Area: No History of Present Illness Roberth Lerma is a very pleasant 71 year old man presents to the ED with complaints of urgency, hesitancy, dribbling, and dysuria beginning about 4 days ago. He states he woke up at night about 4 days ago around 02:00 with incredible urgency to urinate however once getting to the restroom reports hesitancy. He states his dysuria also started around this time as well. He states all of these symptoms have been occurring more often than not over the past 4 days. He denies any fevers, chills, night sweats. Denies hematuria. He states he had been having a band-like sensation around his mid-to-low abdomen, he states he currently does not feel this sensation. He describes this as pressure like, nonradiating, not sharp in nature. He denies any other significant abdominal pain recently. He denies any issues with his prostate in the past or issues urinating prior to four days ago. He states he had his prostate checked with a VANDANA a few months ago by his primary care physician Dr. Sandoval and was told he had a small prostate. He denies any recent nausea, vomiting, diarrhea. He does endorse constipation over the past few days. He is unable to quantify how many BMs he has had over the past few days, but states his BMs have remained soft. Denies visible blood in stools or melena. Denies pain in RUQ or LUQ. Review of Systems Constitutional: DENIES: Fever, Chills, Dizziness, Change in appetite, Night Sweats Eyes: DENIES: Blurred vision, Diplopia, Double Vision Respiratory: DENIES: Cough, Sputum production, Shortness of breath Cardiovascular: DENIES: Chest pain, Palpitations Gastrointestinal: COMPLAINS OF: Abdominal pain, Constipation, DENIES: Black stools, Bloody stools, Diarrhea, Nausea, Vomiting Genitourinary: COMPLAINS OF: Urinary frequency, Urgency, Dysuria, DENIES: Urinary incontinence, Hematuria Integumentary: DENIES: Rash Hematologic/lymphatic: DENIES: Bruising Neurologic: DENIES: Headache, Localized weakness Past Family Social History Past Medical History A-fib s/p PPM implantation CHF (cardiac cath 10/13/2014 showed estimated EF of 15-20%) Cardiomyopathy s/p AICD placement EF of 15% CAD s/p stenting of the LAD in 2001 Anxiety Depression HLD HTN CKD DM Past Surgical History AICD Stent placement Tonsillectomy Allergies: Coded Allergies: Hydrocodone (Verified Allergy, Intermediate, Causes Itching, 11/21/16) Family History FH of CAD Social History Cigarette smoking: previously smoked 1.5-2 PPD for about 20 years; quit in 1985 Etoh intake: reports he only drinks on special social occasions about once or twice a year Illicit drug use: denies Lives in the [facility] with his , step-daughter, son and his son's girlfriend Physical Exam Vital Signs Vital Signs Date Time Temp Pulse Resp B/P Pulse Ox O2 Delivery O2 Flow Rate FiO2 12/15/16 10:41 97.7 76 15 80/44 98 Physical Exam GENERAL: NAD, lying comfortably in bed NEURO: AOx3. Normal speech. photograph tinter grossly intact. SKIN: Warm and dry. No rashes or erythema. HEAD: Normocephalic. Atraumatic. EYES: PERRL. EOMI. No scleral icterus. No injection or drainage. ENT: No nasal drainage. Moist mucous membranes. No oral ulcers or lesions. NECK: Supple, trachea midline. No JVD or lymphadenopathy. CARDIOVASCULAR: Distant heart sounds. Regular rate and rhythm without any appreciable murmurs, rubs, or gallops. Peripheral pulses 2+. Capillary refill is about 2 seconds. RESPIRATORY: Breath sounds clear to auscultation and equal bilaterally, without wheezes, rales, or rhonchi. No accessory muscle use. GASTROINTESTINAL: Abdomen soft, very slightly tender just inferior to his umbilicus, nontender in other quadrants, nondistended, normal BS. No organomegaly or masses. No rebound tenderness. No guarding. MUSCULOSKELETAL: No edema, cyanosis, or clubbing. Normal range of motion. BACK: Nontender without obvious deformity. No CVA tenderness. Laboratory Laboratory Tests Test 12/15/16 11:15 White Blood Count 6.4 Red Blood Count 4.08 Hemoglobin 13.0 Hematocrit 39.4 Mean Corpuscular Volume 96.6 Mean Corpuscular Hemoglobin 31.8 Mean Corpuscular Hemoglobin 32.9 Concent Red Cell Distribution Width 16.2 Platelet Count 131 Mean Platelet Volume 9.3 Neutrophils (%) (Auto) 59.7 Lymphocytes (%) (Auto) 18.7 Monocytes (%) (Auto) 18.6 Eosinophils (%) (Auto) 2.4 Basophils (%) (Auto) 0.6 Neutrophils # (Auto) 3.8 Lymphocytes # (Auto) 1.2 Monocytes # (Auto) 1.2 Eosinophils # (Auto) 0.2 Basophils # (Auto) 0.0 CBC Comment DIFF FINAL Differential Comment Urine Color DARK-YELLOW Urine Turbidity CLOUDY Urine pH 5.5 Urine Specific [place] 1.019 Urine Protein 100 Urine Glucose (UA) NEG Urine Ketones NEG Urine Occult Blood LARGE Urine Nitrite NEG Urine Bilirubin NEG Urine Urobilinogen 2.0 Urine Leukocyte Esterase LARGE Urine RBC Urine WBC Urine WBC Clumps MANY Urine Bacteria MANY Microscopic Urinalysis Comment CULTURE INDICATED Sodium Level 140 Potassium Level 4.2 Chloride Level 103 Carbon Dioxide Level 27.9 Anion Gap 9 Blood Urea Nitrogen 28 Creatinine 2.16 Estimat Glomerular Filtration 30 Rate Random Glucose 220 Calcium Level 8.4 Total Bilirubin 0.5 Aspartate Amino Transf 47 (AST/SGOT) Alanine Aminotransferase 50 (ALT/SGPT) Alkaline Phosphatase 141 Troponin I 0.03 Total Protein 6.8 Albumin 2.8 Date/Time Procedure Status Source Growth 12/15/16 11:15 Urine Culture Received Urine Clean Catch Pending Result Diagram: 12/15/16 1115 12/15/16 1115 Imaging Last 48 hours Impressions Abdomen/Pelvis CT 12/15/16 0000 Signed Impressions: Service Date/Time: Thursday, December 15, 2016 12:01 - CONCLUSION: 1. No definite abnormality is identified to explain the clinical symptoms. However, there is questionable mild inflammation surrounding the urinary bladder which can be seen with cystitis. No significant bladder wall thickening is present. 2. Nonacute findings include hepatic steatosis, mild splenomegaly, sigmoid diverticulosis, and mild atherosclerotic disease. Felice Wisdom MD Septic Shock Reassessment Heart: Regular rate and rhythm Lungs: Clear Skin: Warm, Dry Peripheral Pulses: Bounding Right Radial Bounding Left Radial Bounding Right Dorsalis Pedis Bounding Left Dorsalis Pedis Bounding Right Posterior Tibial Bounding Left Posterior Tibial Capillary Refill: Other (~2 seconds) Assessment and Plan Assessment and Plan Roberth Lerma is a very pleasant 71 year old man presenting to the ED with complaints of urgency, hesitancy, dribbling, and dysuria without any fevers or chills beginning about 4 days ago. Code Status DNR/DNI Problem List: (1) Abnormal urinalysis Status: Acute Plan: - Unclear etiology at this time, consider UTI, BPH, prostatitis, obstructive uropathy - UA with 100 protein, large occult blood, large leukocyte esterase, many WBC clumps, many bacteria - Urine culture pending - Afebrile, no leukocytosis - Post void residual in the ED was normal - Obtain PSA - Consider urine cytology studies - Gentle IVF hydration with NS at 75 cc/hr given the patients cardiac history - Cardiac cath on 10/13/2014 showed an estimated EF of 15-20% (2) Acute kidney injury Status: Acute Plan: - Possibly prerenal from dehydration vs obstructive etiology - Cr 2.16 on admission - Baseline Cr ~1.5 - IVF hydration as above - Continue to monitor - CT abdomen/pelvis showed nml kidney size, no mass, stones, or hydronephrosis (3) Hypotension Status: Acute Plan: - BP 80/44 on admission - Pulse WNLs - BP remains low but stable with MAP > 65 s/p 500 cc bolus in the ED - Continue to monitor vitals q4h - Hold home Coreg (4) CHF (congestive heart failure) Status: Chronic Plan: - Cardiac cath on 10/13/2014 showed an estimated EF of 15-20% - Caution with IVF (5) DM (diabetes mellitus) Status: Chronic Plan: - Accuchecks ACHS - Levemir 5 units subq q12h - Low-dose ISS (6) Nutrition, metabolism, and development symptoms Status: Acute Plan: Fluids: as above Electrolytes: WNLs, continue to monitor Nutrition: 1800 ADA DVT ppx: On Xarelto 15 mg po daily Physician Certification 2 Midnight Certification Type: Admission for Inpatient Services Order for Inpatient Services The services are ordered in accordance with Medicare regulations or non- Medicare payer requirements, as applicable. In the case of services not specified as inpatient-only, they are appropriately provided as inpatient services in accordance with the 2-midnight benchmark. Estimated LOS (days): 2 days is the estimated time the patient will need to remain in the hospital, assuming treatment plan goals are met and no additional complications. Post-Hospital Plan: Home Jose Rafael Kiser MD R1 December 15, 2016 13:05
[2016-12-15 13:24] VITALS: BP 95/65; O2SAT 97
[2016-12-15] MEDS ORDERED: ACETAMINOPHEN 325 MG TAB PO PRN (14:00)
[2016-12-15] MEDS ORDERED: BISACODYL 10 MG SUPP RECTAL PRN (14:00)
[2016-12-15] MEDS ORDERED: NALOXONE HCL 0.4 MG/ML AMP IV PRN (14:00)
[2016-12-15] MEDS ORDERED: SODIUM CHLORIDE 0.9% FLUSH 10 ML FLUSH IV FLUSH PRN (14:00)
[2016-12-15] MEDS ORDERED: ONDANSETRON HCL 4 MG/2 ML VIAL IVP PRN (14:00)
[2016-12-15] MEDS ORDERED: LACTULOSE SYRUP 20 GM/30 ML CUP PO PRN (14:00)
[2016-12-15] MEDS ORDERED: MAGNESIUM HYDROXIDE SUSP 30 ML CUP PO PRN (14:00)
[2016-12-15] MEDS: DOCUSATE SODIUM 50 MG/SENNA 8.6 MG TAB PO SCH ×2 (14:00→20:43)
[2016-12-15] MEDS ORDERED: RESP: ALBUTEROL 2.5 MG/3 ML NEB (PRN) NEB (14:15)
[2016-12-15] MEDS: SODIUM CHLORIDE 0.9% FLUSH 10 ML FLUSH IV FLUSH SCH ×2 (14:20→20:43)
[2016-12-15] MEDS: SODIUM CHLOR 0.9% 1000 ML INJ 1,000 ML IV SCH (14:20)
--- NOTE | 2016-12-15 14:57 | EKG ---
Date Performed: 12/15/2016 Time Performed: 10:59:42 PTAGE: 71 years EKG: ELECTRONIC ATRIAL PACEMAKER INDETERMINATE AXIS INTRAVENTRICULAR CONDUCTION DELAY ABNORMAL E CG NO SIGNIFICANT CHANGE FROM PRIOR ELECTROCARDIOGRAM. PREVIOUS TRACING : 12/15/2016 10.58 DOCTOR: Bro [place] Interpretating Date/Time 12/17/2016 10:34:10
[2016-12-15] MEDS ORDERED: SACU1TAB PO (15:24)
[2016-12-15] MEDS ORDERED: FURO20TA PO (15:24)
[2016-12-15] MEDS ORDERED: OLOD1AER2 (15:24)
[2016-12-15] MEDS ORDERED: HYDR-3516 PO (15:24)
[2016-12-15] MEDS ORDERED: DIVA500T3 PO (15:24)
[2016-12-15] MEDS ORDERED: VITA2000 PO (15:24)
[2016-12-15 16:53] VITALS: BP 97/55; PULSE 60; RESP 20; TEMP 98; O2SAT 96
[2016-12-15] MEDS: INSULIN ASPART SUPPLEMENTAL SCALE SQ SCH ×2 (18:25→20:47)
[2016-12-15 19:07] VITALS: BP 109/57; PULSE 60; RESP 16; TEMP 98; O2SAT 95
[2016-12-15] MEDS: INSULIN DETEMIR 100 UNITS/ML VIAL SQ SCH (20:44)
[2016-12-15] MEDS ORDERED: CARVEDILOL 12.5 MG TAB PO SCH (21:00)
[2016-12-15] MEDS ORDERED: ATORVASTATIN 20 MG TAB PO SCH (21:00)
[2016-12-16 00:59] VITALS: BP 110/64; PULSE 68; RESP 18; TEMP 98.4; O2SAT 95
[2016-12-16] MEDS: SODIUM CHLOR 0.9% 1000 ML INJ 1,000 ML IV SCH (03:14)
[2016-12-16 03:37] VITALS: BP 107/56; PULSE 64; RESP 18; TEMP 98.5; O2SAT 91
[2016-12-16] MEDS: INSULIN ASPART SUPPLEMENTAL SCALE SQ SCH (06:04)
[2016-12-16 06:36] LABS: AUTOMATED NEUTROPHIL # 3.4 TH/MM3 (1.8-7.7); BASOPHIL % 0.5 % (0.0-2.0); EOSINOPHIL # 0.2 TH/MM3 (0-0.4); EOSINOPHIL % 3.3 % (0.0-4.0); HEMATOCRIT 34.9 % (39.0-51.0); HEMO FLAGS DIFF FINAL; LYMPH % 26.8 % (9.0-44.0); LYMPHOCYTE # 1.8 TH/MM3 (1.0-4.8); MEAN CELL VOLUME 95.1 FL (80.0-100.0); MEAN CORPUSCULAR HEMOGLOBIN 32.2 PG (27.0-34.0); MEAN CORPUSCULAR HGB CONC 33.8 % (32.0-36.0); NEUT % 50.4 % (16.0-70.0); PLATELET COUNT 128 TH/MM3 (150-450); RED BLOOD COUNT 3.67 MIL/MM3 (4.50-5.90); RED CELL DISTRIBUTION WIDTH 15.8 % (11.6-17.2); WHITE BLOOD COUNT 6.7 TH/MM3 (4.0-11.0)
--- NOTE | 2016-12-16 06:50 | HHI.FPPN ---
Subjective Remarks Roberth Lerma is a 71yo gentleman with significant cardiac history who presented to ER with urinary symptoms = urgency, hesitancy, and dysuria x 4 days. No fevers, chills, night sweats, gross hematuria. + lower abdominal pressure, nonradiating. For further details, please see resident H&P. This morning, he reports that his urinary symptoms have resolved. His abdominal pain has resolved. He would like to go home. ROS: No fevers, no chills. No abominal pain (resolved). No dysuria (resolved). No hesitancy (resolved). All other systems reviewed are negative. PMH/PSxH/SocHx/FamHx: Per resident H&P. Significant for: A fib, CHF with EF 15- 20% in 2014, CAD with h/o LAD stenting, HTN, hyperlipidemia, CKD, DM II, anxiety , depression. PPM implantation, cardiac cath in 2014, ACID placement, tonsillectomy. Family history of CAD. 30-40 pack year smoking history, but quit in 1985. Rare alcohol use. Lives in [facility] with and family. Objective Vitals Vital Signs Date Time Temp Pulse Resp B/P Pulse Ox O2 Delivery O2 Flow Rate FiO2 12/16/16 03:37 98.5 64 18 107/56 91 12/16/16 00:59 98.4 68 18 110/64 95 12/15/16 19:07 98.0 60 16 109/57 95 12/15/16 16:53 98.0 60 20 97/55 96 12/15/16 15:58 Nasal Cannula 2.00 12/15/16 15:24 97 12/15/16 13:24 95/65 97 Room Air 12/15/16 10:41 97.7 76 15 80/44 98 I/O 12/15/16 12/15/16 12/15/16 12/16/16 12/16/16 12/16/16 07:00 15:00 23:00 07:00 15:00 23:00 Intake Total 250 ml Output Total 200 ml Balance 50 ml Intake Oral 50 ml IV Total 200 ml Output Urine Total 200 ml Result Diagram: 12/16/16 0600 12/15/16 1115 Objective Remarks GENERAL: in NAD, no resp distress. Nontoxic. Lying comfortably in bed. HEENT: NCAT, EOMI, no scleral icterus, no conjunctival injection. MMM. NECK: Supple, no meningeal signs CV: RRR, S1 S2. No murmurs CHEST/PULM: CTAB, no crackles, no wheezes ABD/GI: +BS, soft, nontender, nondistended EXT: 2+ DP pulses. No calf tenderness, no edema. NEURO: Awake, alert. Normal muscle tone. Grossly nonfocal. SKIN: No rashes, no jaundice. PSYCH: Mood and affect are appropriate. Speech fluent. : Mild R CVAT. No CVAT on left. exam performed by Dr. Kiser: Normal prostate exam - no tenderness, no enlargement, no bogginess, no nodules/masses palpable. A/P Assessment and Plan Roberth Lerma is a very pleasant 71 year old man presenting to the ED with complaints of urgency, hesitancy, dribbling, and dysuria without any fevers or chills beginning about 4 days ago. Discharge Planning Discharge home today. Urine culture pending - will follow up culture results and contact patient if indicated / antibiotic adjustment needs to be made. Attending Attestation Patient seen, examined, and discussed with resident team. Problem List: (1) Complicated UTI (urinary tract infection) Status: Acute Plan: Symptoms have improved. Consider UTI/pyelonephritis/cystitis vs proctitis vs other. Urine culture pending. Continue antibiotics x 14 day total treatment. Rectal exam is nonrevealing. (2) PSA elevation Status: Acute Plan: 03/2016 PSA 0.5; now 10. Discussed this with patient. No evidence of prostatitis on exam. Will treat UTI and recheck PSA as an outpatient. Patient may benefit from referral to urology as an outpatient. (3) Ofaun-vt-wxzqsex kidney injury Status: Resolved Plan: Creatinine is back to baseline after IV fluid. Will renally dose medications as indicated. (4) Hypotension Status: Resolved Plan: - BP 80/44 on admission; s/p 500 cc bolus in the ED - Blood pressure has improved this morning. (5) CHF (congestive heart failure) Status: Chronic Plan: - Cardiac cath on 10/13/2014 showed an estimated EF of 15-20% - Caution with IVF. He received 500cc bolus in ER. (6) DM (diabetes mellitus) Status: Chronic Plan: - Accuchecks ACHS - Levemir 5 units subq q12h - Low-dose ISS. (7) Normocytic anemia Status: Chronic Plan: Chronic secondary to chronic kidney disease. No obvious active bleeding. No intervention needed at this time. Problem Qualifiers (1) DM (diabetes mellitus): Liliana Lynn MD December 16, 2016 06:50 Liliana Lynn MD December 16, 2016 06:50 Problem List: (1) Abnormal urinalysis Status: Acute Plan: - Unclear etiology at this time, consider UTI, BPH, prostatitis, obstructive uropathy - UA with 100 protein, large occult blood, large leukocyte esterase, many WBC clumps, many bacteria - Urine culture pending - Afebrile, no leukocytosis - Post void residual in the ED was normal - Obtain PSA - Consider urine cytology studies - Gentle IVF hydration with NS at 75 cc/hr given the patients cardiac history - Cardiac cath on 10/13/2014 showed an estimated EF of 15-20% (2) Acute kidney injury Status: Acute Plan: - Possibly prerenal from dehydration vs obstructive etiology - Cr 2.16 on admission - Baseline Cr ~1.5 - IVF hydration as above - Continue to monitor - CT abdomen/pelvis showed nml kidney size, no mass, stones, or hydronephrosis (3) Hypotension Status: Acute Plan: - BP 80/44 on admission - Pulse WNLs - BP remains low but stable with MAP > 65 s/p 500 cc bolus in the ED - Continue to monitor vitals q4h - Hold home Coreg (4) CHF (congestive heart failure) Status: Chronic Plan: - Cardiac cath on 10/13/2014 showed an estimated EF of 15-20% - Caution with IVF (5) DM (diabetes mellitus) Status: Chronic Plan: - Accuchecks ACHS - Levemir 5 units subq q12h - Low-dose ISS (6) Nutrition, metabolism, and development symptoms Status: Acute Plan: Fluids: as above Electrolytes: WNLs, continue to monitor Nutrition: 1800 ADA DVT ppx: On Xarelto 15 mg po daily Liliana Lynn MD December 16, 2016 06:50
[2016-12-16 07:08] LABS: ALKALINE PHOSPHATASE 144 U/L (45-117); ALT (GPT) 41 U/L (12-78); ANION GAP 7 MEQ/L (5-15); AST (GOT) 36 U/L (15-37); BICARBONATE 24.9 MEQ/L (21.0-32.0); BLOOD UREA NITROGEN 23 MG/DL (7-18); CHLORIDE 109 MEQ/L (98-107); GLOMERULAR FILTRATION RATE 50 ML/MIN (>89); POTASSIUM 4.1 MEQ/L (3.5-5.1); SODIUM (NA) 141 MEQ/L (136-145); TOTAL BILIRUBIN ADULT 0.4 MG/DL (0.2-1.0)
[2016-12-16 08:36] VITALS: BP 121/68; PULSE 64; RESP 20; TEMP 97.9; O2SAT 94
[2016-12-16] MEDS: SODIUM CHLORIDE 0.9% FLUSH 10 ML FLUSH IV FLUSH SCH (08:52)
[2016-12-16] MEDS ORDERED: DIGOXIN 0.125 MG TAB PO SCH (09:00)
[2016-12-16] MEDS ORDERED: RIVAROXABAN 15 MG TAB PO SCH (09:00)
[2016-12-16] MEDS ORDERED: CHOLECALCIFEROL (VIT D3) 1000 UNIT TAB PO SCH (09:00)
[2016-12-16] MEDS ORDERED: ALLOPURINOL 100 MG TAB PO SCH (09:00)
[2016-12-16] MEDS ORDERED: FUROSEMIDE 20 MG TAB PO SCH (09:00)
[2016-12-16] MEDS: DOCUSATE SODIUM 50 MG/SENNA 8.6 MG TAB PO SCH (09:09)
[2016-12-16] MEDS: INSULIN DETEMIR 100 UNITS/ML VIAL SQ SCH (09:09)
--- NOTE | 2016-12-16 09:32 | HHI.DCPOC ---
Discharge Care Plan Diagnosis: (1) Lfniq-yw-fagyfiz kidney injury (2) Cystitis (3) Acute kidney injury (4) Normocytic anemia (5) Abnormal urinalysis (6) Pyelonephritis (7) PSA elevation (8) Cardiomyopathy (9) Hypotension (10) CHF (congestive heart failure) (11) History of COPD (12) Seizure disorder (13) Diabetes (14) Coronary artery disease Goals to Promote Your Health * To prevent worsening of your condition and complications * To maintain your health at the optimal level Directions to Meet Your Goals Take your medications as prescribed Follow your dietary instruction Follow activity as directed Keep your appointments as scheduled Take your immunizations and boosters as scheduled If your symptoms worsen call your PCP, if no PCP go to Urgent Care Center or Emergency Room Smoking is Dangerous to Your Health. Avoid second hand smoke Call the 24-hour hour crisis hotline for domestic abuse at Clare Alves MD December 16, 2016 09:32
[2016-12-16] MEDS ORDERED: CIPR500T2 PO (09:36)
[2016-12-16] MEDS ORDERED: cefTRIAXone INJ 1,000 MG in SODIUM CHLORIDE 0.9% INJ 100 ML IV SCH (13:00)
== END 2016-12-16 12:12 | disposition home or self-care (01) ==
LOC: NEPC 10:37 → NEDA 13:04 → NEPGCP 15:36
PROVIDERS: ADMIT Family Medicine; ATTEND Family Medicine
DX: N39.0 Urinary tract infection, site not specified (principal); I13.0 Hypertensive heart and chronic kidney disease with heart failure and stage 1 through stage 4 chronic kidney disease, or unspecified chronic kidney disease; E11.22 Type 2 diabetes mellitus with diabetic chronic kidney disease; N18.9 Chronic kidney disease, unspecified; N17.9 Acute kidney failure, unspecified; I50.9 Heart failure, unspecified; D64.9 Anemia, unspecified; F41.9 Anxiety disorder, unspecified; R94.31 Abnormal electrocardiogram [ECG] [EKG]; E78.00 Pure hypercholesterolemia, unspecified; J44.9 Chronic obstructive pulmonary disease, unspecified; I48.91 Unspecified atrial fibrillation; E78.5 Hyperlipidemia, unspecified; I25.10 Atherosclerotic heart disease of native coronary artery without angina pectoris; I25.2 Old myocardial infarction; Z95.0 Presence of cardiac pacemaker; F32.9 Major depressive disorder, single episode, unspecified; Z87.891 Personal history of nicotine dependence; Z88.5 Allergy status to narcotic agent; Z79.01 Long term (current) use of anticoagulants; Z79.4 Long term (current) use of insulin; Z95.5 Presence of coronary angioplasty implant and graft; Z66 Do not resuscitate
CPT/HCPCS: 51702; 74176; 80053; 81001; 82948; 83605; 84153; 84484; 85025; 87077; 87086; 87186; 93005; 96374; 99285; G0378; J0696; J1815; J7030; J7040

== ENCOUNTER → 2017-04-16 | Outpatient (CLI) | payer MEDICARE, OTHER ==
[~2017-04-16] MED LIST changes: +DIFL0.0512 LEFT EYE; +DIVA500T3 PO; -FURO1TAB62 PO; +FURO20TA PO; +HYDR-3516 PO; -MULT-135 PO; +MULTTAB67 PO; +NEPA0.3D LEFT EYE; +OLOD1AER2; +SACU1TAB PO; +VIGA0.5D LEFT EYE; -VITA10003 PO; +VITA2000 PO; +[UNRECOGNIZED DRUG - CODE] PO
[2017-04-16 08:10] LABS: AUTOMATED NEUTROPHIL # 2.5 TH/MM3 (1.8-7.7); BASOPHIL % 0.3 % (0.0-2.0); EOSINOPHIL # 0.2 TH/MM3 (0-0.4); HEMATOCRIT 37.4 % (39.0-51.0); HEMO FLAGS DIFF FINAL; LYMPH % 32.1 % (9.0-44.0); LYMPHOCYTE # 1.5 TH/MM3 (1.0-4.8); MEAN CORPUSCULAR HEMOGLOBIN 32.7 PG (27.0-34.0); MONO % 10.4 % (0.0-8.0); NEUT % 53.2 % (16.0-70.0); PLATELET COUNT 126 TH/MM3 (150-450); RED BLOOD COUNT 3.77 MIL/MM3 (4.50-5.90); RED CELL DISTRIBUTION WIDTH 16.3 % (11.6-17.2); WHITE BLOOD COUNT 4.8 TH/MM3 (4.0-11.0)
[2017-04-16 08:56] LABS: ALT (GPT) 25 U/L (12-78); ANION GAP 5 MEQ/L (5-15); AST (GOT) 24 U/L (15-37); BICARBONATE 28.9 MEQ/L (21.0-32.0); BLOOD UREA NITROGEN 28 MG/DL (7-18); CHLORIDE 106 MEQ/L (98-107); GLOMERULAR FILTRATION RATE 42 ML/MIN (>89); GLUCOSE,FASTING 116 MG/DL (74-99); POTASSIUM 4.3 MEQ/L (3.5-5.1); SODIUM (NA) 140 MEQ/L (136-145)
[2017-04-16 09:06] LABS: ALKALINE PHOSPHATASE 95 U/L (45-117); HDL CHOLESTEROL 44.4 MG/DL (40.0-60.0); LDL CHOLESTEROL 58 MG/DL (0-99); TOTAL BILIRUBIN ADULT 0.5 MG/DL (0.2-1.0)
[2017-04-16 09:23] LABS: HEMOGLOBIN A1a 1.3 %; HEMOGLOBIN A1b 0.8 %; HEMOGLOBIN Ao 84.4 %; HEMOGLOBIN F 0.9 %; HEMOGLOBIN LA1C 2.1 %; HEMOGLOBIN P3 3.9 %
== END ==
LOC: CLAB 07:28
PROVIDERS: ATTEND Ophthalmology
DX: I10 Essential (primary) hypertension (principal); I25.5 Ischemic cardiomyopathy; I50.9 Heart failure, unspecified; I25.10 Atherosclerotic heart disease of native coronary artery without angina pectoris; E11.9 Type 2 diabetes mellitus without complications; I48.91 Unspecified atrial fibrillation; N18.3 Chronic kidney disease, stage 3 (moderate); M10.9 Gout, unspecified; E78.5 Hyperlipidemia, unspecified
CPT/HCPCS: 36415; 80053; 80061; 83036; 84443; 84550; 85025

== ENCOUNTER → 2017-04-30 | Day surgery (SDC) | payer MEDICARE, OTHER ==
[~2017-04-30] VITALS: Ht 172.7 cm; Wt 87.2 kg
[~2017-04-30] MED LIST changes: +CHLORHEXIDINE GLUCONATE 2 % 1 PACK (2 CLOTHS) TOPICAL PRN; +EPINEPHrine HCL (1:1000) 1 MG/ML VIAL ONE; +EPINEPHrine-Lidocaine/BSS (PF/SF) 4-120 mg/16 mL OPTH SYR LEFT EYE ONE; +EPINEPHrine-Lidocaine/BSS (PF/SF) 4-120 mg/16 mL OPTH SYR ONE; +FLUMAZENIL 1 MG/10 ML VIAL IV ONE; +HYALURONIDASE/LIDOCAINE/EPINEPHRINE/BUPIVACAINE 4.5 ML SYR LEFT EYE ONE; +HYALURONIDASE/LIDOCAINE/EPINEPHRINE/BUPIVACAINE 6 ML SYR LEFT EYE ONE; +INSULIN HUMAN REGULAR 1,000 UNITS/10 ML VIAL SQ PRN; +LACTATED RINGER'S 1000 ML IV PRN; +LIDOCAINE HCL 1% PF 30 ML VIAL ONE; +LIDOCAINE HCL 2% JELLY 5 ML SYRINGE ONE; +METOPROLOL TARTRATE 25 MG TAB PO PRN; +MIDAZOLAM HCL 2 MG/2 ML VIAL ONE; +POVIDONE IODINE 5% (ANTISEPSIS KIT) 4 APPLICATIONS EACH NARE PRN; +SODIUM CHLORID 0.9% 500 ML IV PRN; +TOBRAMYCIN/DEXAMETHASONE OPTH OINT 3.5 GM TUBE ONE; +VISCOAT OPHT IRRIG SOLN 0.75 ML SYRINGE ONE
[2017-04-30] MEDS: PHENYLEPHRINE HCL 10% OPTH SOLN 5 ML BTL LEFT EYE SCH ×3 (07:50→08:00)
[2017-04-30] MEDS: CYCLOPENTOLATE HCL 1% OPHT SOLN 2 ML BTL LEFT EYE SCH ×3 (07:50→08:00)
[2017-04-30] MEDS: TROPICAMIDE 1% OPHT SOLN 15 ML BTL LEFT EYE SCH ×3 (07:50→08:00)
[2017-04-30] MEDS: TETRACAINE 0.5% OPTH SOLN 4 ML BTL LEFT EYE SCH ×3 (07:50→08:00)
[2017-04-30 09:45] VITALS: TEMP 98
--- NOTE | 2017-04-30 09:54 | PD.OP ---
Operative Report Date of Surgery: Apr 30, 2017 Preoperative Diagnosis: (1) Nuclear sclerotic cataract of left eye Postoperative Diagnosis: (1) Pseudophakia of left eye Procedure: phacoemulsification and intraocular lens implant left eye Anesthesia: MAC, local Surgeon: Katharine Nunez Belt Dresser(s): none Operation and Findings: Patient was consented for surgery and taken back to the operating room. He was prepped and draped in the usual sterile fashion for ophthalmic surgery. A wire lid speculum was placed in the left eye. A paracentesis incision was created at the 5 o'clock position on the limbus. Vision blue dye, intracameral epishugarcaine, and viscoelastic was injected into the anterior chamber. The main incision was created at the 2 o'clock position on the limbus with a 2.4 mm keratome. A continuous curvilinear capsulorrhexis was made on the anterior lens capsule. Hydrodissection was used to separate the lens from the capsule. Phacoemulsification was used to remove the lens nucleus material. Irrigation and aspiration was used to remove the remaining cortical material. The lens implant ([id number]) was placed in the capsular bag. Viscoelastic was removed with irrigation and aspiration. The incisions were irrigated and found to be watertight. Tobradex ointment, a patch, and shield were placed on the left eye. The patient was sent to PACU in stable condition. Katharine Nunez MD Apr 30, 2017 09:54
[2017-04-30 10:05] VITALS: BP 116/67; PULSE 66; RESP 16; O2SAT 96
== END | disposition home or self-care (01) ==
LOC: PHSDC 06:41
PROVIDERS: ATTEND Ophthalmology
DX: H25.12 Age-related nuclear cataract, left eye (principal); I10 Essential (primary) hypertension; J44.9 Chronic obstructive pulmonary disease, unspecified; E78.5 Hyperlipidemia, unspecified; M10.9 Gout, unspecified; Z96.1 Presence of intraocular lens; Z95.5 Presence of coronary angioplasty implant and graft; E11.9 Type 2 diabetes mellitus without complications
CPT/HCPCS: 00142; 66984; 82948; J0171; J2250; J7040; V2632

== ENCOUNTER → 2017-08-12 | Outpatient (CLI) | payer MEDICARE, OTHER ==
[~2017-08-12] MED LIST changes: -CHLORHEXIDINE GLUCONATE 2 % 1 PACK (2 CLOTHS) TOPICAL PRN; -EPINEPHrine HCL (1:1000) 1 MG/ML VIAL ONE; -EPINEPHrine-Lidocaine/BSS (PF/SF) 4-120 mg/16 mL OPTH SYR LEFT EYE ONE; -EPINEPHrine-Lidocaine/BSS (PF/SF) 4-120 mg/16 mL OPTH SYR ONE; -FLUMAZENIL 1 MG/10 ML VIAL IV ONE; -HYALURONIDASE/LIDOCAINE/EPINEPHRINE/BUPIVACAINE 4.5 ML SYR LEFT EYE ONE; -HYALURONIDASE/LIDOCAINE/EPINEPHRINE/BUPIVACAINE 6 ML SYR LEFT EYE ONE; -INSULIN HUMAN REGULAR 1,000 UNITS/10 ML VIAL SQ PRN; -LACTATED RINGER'S 1000 ML IV PRN; -LIDOCAINE HCL 1% PF 30 ML VIAL ONE; -LIDOCAINE HCL 2% JELLY 5 ML SYRINGE ONE; -METOPROLOL TARTRATE 25 MG TAB PO PRN; -MIDAZOLAM HCL 2 MG/2 ML VIAL ONE; +NACL5%O LEFT EYE; -POVIDONE IODINE 5% (ANTISEPSIS KIT) 4 APPLICATIONS EACH NARE PRN; -SODIUM CHLORID 0.9% 500 ML IV PRN; -TOBRAMYCIN/DEXAMETHASONE OPTH OINT 3.5 GM TUBE ONE; -VIGA0.5D LEFT EYE; -VISCOAT OPHT IRRIG SOLN 0.75 ML SYRINGE ONE
[2017-08-12 08:36] LABS: AUTOMATED NEUTROPHIL # 2.4 TH/MM3 (1.8-7.7); BASOPHIL % 0.5 % (0.0-2.0); EOSINOPHIL # 0.3 TH/MM3 (0-0.4); EOSINOPHIL % 5.5 % (0.0-4.0); HEMATOCRIT 38.4 % (39.0-51.0); HEMOGLOBIN 13.2 GM/DL (13.0-17.0); LYMPH % 42.6 % (9.0-44.0); LYMPHOCYTE # 2.7 TH/MM3 (1.0-4.8); MEAN CORPUSCULAR HEMOGLOBIN 34.2 PG (27.0-34.0); MEAN CORPUSCULAR HGB CONC 34.2 % (32.0-36.0); MEAN PLATELET VOLUME 9.3 FL (7.0-11.0); MONO % 12.6 % (0.0-8.0); MONOCYTE # 0.8 TH/MM3 (0-0.9); NEUT % 38.8 % (16.0-70.0); PLATELET COUNT 137 TH/MM3 (150-450); RED BLOOD COUNT 3.84 MIL/MM3 (4.50-5.90); RED CELL DISTRIBUTION WIDTH 16.7 % (11.6-17.2); WHITE BLOOD COUNT 6.2 TH/MM3 (4.0-11.0)
[2017-08-12 08:37] LABS: ALBUMIN 3.5 GM/DL (3.4-5.0); BICARBONATE 29.2 MEQ/L (21.0-32.0); BLOOD UREA NITROGEN 17 MG/DL (7-18); CALCIUM 8.7 MG/DL (8.5-10.1); CHLORIDE 105 MEQ/L (98-107); GLOMERULAR FILTRATION RATE 43 ML/MIN (>89); GLUCOSE,FASTING 157 MG/DL (74-99); PHOSPHORUS 3.4 MG/DL (2.5-4.9); SODIUM (NA) 140 MEQ/L (136-145)
[2017-08-12 10:44] LABS: HEMOGLOBIN A1C 7.7 % (4.3-6.0)
== END ==
LOC: CLAB 07:44
PROVIDERS: ATTEND Internal Medicine Nephrology
DX: I12.9 Hypertensive chronic kidney disease with stage 1 through stage 4 chronic kidney disease, or unspecified chronic kidney disease (principal); N18.3 Chronic kidney disease, stage 3 (moderate); E11.22 Type 2 diabetes mellitus with diabetic chronic kidney disease; E55.9 Vitamin D deficiency, unspecified
CPT/HCPCS: 36415; 80069; 82306; 83036; 83970; 85025

== ENCOUNTER 2017-09-03 00:54 | Inpatient (IN) | payer MEDICARE, OTHER ==
[2017-09-03] VITALS (10 sets, daily range): BP systolic 95–146; BP diastolic 53–78; PULSE 53–83; RESP 14–28; TEMP 97.3–97.9; O2SAT 88–97
[~2017-09-03] VITALS: Ht 170.2 cm; Wt 94.8 kg
[2017-09-03] MEDS ORDERED: SODIUM CHLORIDE 0.9% FLUSH 10 ML FLUSH IVF PRN (01:15)
[2017-09-03] MEDS ORDERED: NITROGLYCERIN 2% OINT 1 GM PACKET TOPICAL ONE (01:15)
[2017-09-03] MEDS ORDERED: FUROSEMIDE 100 MG/10 ML VIAL IV PUSH ONE (01:15)
[2017-09-03] MEDS ORDERED: NITROGLYCERIN 0.4 MG SL 25 TABS/BTL SL ONE (01:15)
--- NOTE | 2017-09-03 01:36 | RADRPT ---
EXAM DATE/TIME: 09/03/2017 01:25 [facility] COMPARISON: CHEST SINGLE AP, October 19, 2016, 18:21. INDICATIONS : Short of breath. MEDICAL HISTORY : None. SURGICAL HISTORY : Pacemaker. ENCOUNTER: Initial ACUITY: 1 day PAIN SCORE: 0/10 LOCATION: Bilateral chest FINDINGS: There is patchy basilar airspace disease and atelectasis. Pacer/ICD device again noted. Cardiomegaly. Degenerative changes of the spine. CONCLUSION: Patchy basilar airspace disease. Yousuf Love MD on September 03, 2017 at 1:34 Board Certified Radiologist. This report was verified electronically.
[2017-09-03 01:39] LABS: AUTOMATED NEUTROPHIL # 6.1 TH/MM3 (1.8-7.7); BASOPHIL % 0.5 % (0.0-2.0); EOSINOPHIL # 0.3 TH/MM3 (0-0.4); EOSINOPHIL % 2.8 % (0.0-4.0); HEMATOCRIT 39.2 % (39.0-51.0); HEMOGLOBIN 13.4 GM/DL (13.0-17.0); LYMPH % 20.2 % (9.0-44.0); LYMPHOCYTE # 1.9 TH/MM3 (1.0-4.8); MEAN CELL VOLUME 100.4 FL (80.0-100.0); MEAN CORPUSCULAR HEMOGLOBIN 34.2 PG (27.0-34.0); MEAN CORPUSCULAR HGB CONC 34.1 % (32.0-36.0); MEAN PLATELET VOLUME 9.7 FL (7.0-11.0); MONO % 10.4 % (0.0-8.0); NEUT % 66.1 % (16.0-70.0); PLATELET COUNT 123 TH/MM3 (150-450); RED CELL DISTRIBUTION WIDTH 16.6 % (11.6-17.2); WHITE BLOOD COUNT 9.3 TH/MM3 (4.0-11.0)
[2017-09-03 01:51] LABS: INTERNATIONAL NORMALIZED RATIO 1.2 RATIO; PROTHROMBIN TIME - PATIENT 12.1 SEC (9.8-11.6)
[2017-09-03 01:58] LABS: ALBUMIN 3.5 GM/DL (3.4-5.0); ALT (GPT) 93 U/L (12-78); AST (GOT) 57 U/L (15-37); BICARBONATE 25.4 MEQ/L (21.0-32.0); BLOOD UREA NITROGEN 22 MG/DL (7-18); CHLORIDE 106 MEQ/L (98-107); CREATININE 1.72 MG/DL (0.60-1.30); GLOMERULAR FILTRATION RATE 39 ML/MIN (>89); GLUCOSE,RANDOM 188 MG/DL (74-106); MAGNESIUM 1.8 MG/DL (1.5-2.5); SODIUM (NA) 140 MEQ/L (136-145)
[2017-09-03 02:02] LABS: ALKALINE PHOSPHATASE 83 U/L (45-117); TOTAL BILIRUBIN ADULT 0.9 MG/DL (0.2-1.0); TROPONIN I 0.13 NG/ML (0.02-0.05)
[2017-09-03 02:52] LABS: BILIRUBIN, URINE NEG (NEG); BLOOD, URINE NEG (NEG); GLUCOSE,URINE NEG (NEG); KETONE, URINE NEG (NEG); NITRITE,URINE NEG (NEG); URINE COLOR LIGHT-YELLOW (YELLW/STRAW); URINE LEUKOCYTE ESTERASE NEG (NEG)
[2017-09-03] MEDS ORDERED: ASPIRIN 325 MG TAB PO ONE (03:00)
[2017-09-03] MEDS ORDERED: oxyCODONE/ACETAMINOPHEN 5 MG/325 MG TAB PO ONE (03:30)
[2017-09-03] MEDS ORDERED: HEPARIN SODIUM - IV 10,000 UNITS/10 ML VIAL IV PUSH ONE (05:00)
[2017-09-03] MEDS ORDERED: HEPARIN-D5W 25,000 U/250 ML 250 ML IV PRN (05:00)
--- NOTE | 2017-09-03 05:01 | PD ---
HPI . Acute respiratory distress Chief Complaint: Respiratory Distress Time Seen by Provider: 01:07 Travel History International Travel<30 days: No Contact w/Intl Traveler<30days: No Traveled to known affect area: No History of Present Illness HPI 72-year-old male history of CHF, presents with having increased leg swelling of late, increased weight gain, increased orthopnea, with progressively worsening shortness of breath and orthopnea over the past 3 days. Patient took 60 mg of Lasix throughout the day today, with significant diuresis, and yet no significant improvement. Patient denies chest pain, fever, diaphoresis. Denies leg pain or swelling. PFSH Past Medical History Narrative Medical Extensive past medical history reviewed Hx Anticoagulant Therapy: Yes (XARELTO) Asthma: Yes Blood Disorders: No Anxiety: Yes ( ) Depression: Yes ( ) Heart Rhythm Problems: Yes (PPM/ICD 2013) Cancer: No Cardiovascular Problems: Yes (STENT, AICD ([facility]) 2013, [place] 2001) High Cholesterol: Yes Chemotherapy: No Chest Pain: Yes (IN 2001.) Congestive Heart Failure: Yes COPD: Yes Diabetes: Yes (TYPE 2 DIABETES) Patient Takes Glucophage: No Diminished Hearing: Yes (nusrat hearing aids) Endocrine: Yes Gastrointestinal Disorders: No Glaucoma: No Genitourinary: No Hepatitis: Yes (DENIES) Hiatal Hernia: No Hypertension: Yes Immune Disorder: No Implanted Vascular Access Dvce: Yes Medical other: Yes (GOUT, HYPERLIPIDEMIA) Musculoskeletal: Yes (LEFT SHOULDER ARTHRITIS) Neurologic: No Psychiatric: No Reproductive: No Respiratory: Yes (COPD, OXYGEN VIA NASAL CANNULA AT NIGHT) Immunizations Current: Yes Myocardial Infarction: Yes (IN 2001, STENT PLACED.) Radiation Therapy: No Sleep Apnea: No Thyroid Disease: No Past Surgical History Abdominal Surgery: Yes (SHRAPNEL REMOVED FROM LEFT LOWER QUAD IN "THE 60'S") AICD: Yes ([facility]) Arteriovenous Shunt: No Body Medical Devices: PPM/ICD Cardiac Surgery: Yes (STENT 2001, AICD ([facility])) Ear Surgery: No Endocrine Surgery: No Eye Surgery: No Genitourinary Surgery: No Gynecologic Surgery: No Insulin Pump: No Joint Replacement: No Pacemaker: Yes (PPM/ICD 09/2014 [facility]) Thoracic Surgery: No Tonsillectomy: Yes Other Surgery: Yes (LLQ SCHRAPNAL REMOVED, STENT) Social History Alcohol Use: Yes (rare) Tobacco Use: No (QUIT 1987) Substance Use: No Allergies-Medications (Allergen,Severity, Reaction): Coded Allergies: hydrocodone (Verified Allergy, Intermediate, Causes Itching, 09/03/17) Reported Meds & Prescriptions Reported Meds & Active Scripts Active Ilevro Opth Drops (Nepafenac) 0.3 % Soln 1 Drop LEFT EYE DAILY Durezol Opth (Difluprednate Opth) 0.05% Emul 1 Drop LEFT EYE QID Reported Sirisha 128 Opth Oint (Sodium Chloride) 5 % Oint 1 Applic LEFT EYE QID Pacerone (Amiodarone HCl) 100 Mg Tab 100 Mg PO DAILY Entresto (Sacubitril-Valsartan) 24-26 Mg Tab 1 Tab PO BID Multiple Vitamin 1 Tab 1 Tab PO DAILY Vitamin D3 (Cholecalciferol) 2,000 Unit Cap 2,000 Units PO DAILY Hydrocodone-Acetaminophen 5-325 mg Tab 1 Tab PO Q4H PRN Striverdi Respimat Inh (Olodaterol Inh) 2.5 Mcg/Act Aer Divalproex ER (Divalproex Sodium) 500 Mg Tab 1,000 Mg PO DAILY Furosemide 20 Mg Tab 20 Mg PO DAILY Carvedilol 12.5 Mg Tab 12.5 Mg PO BID Ventolin Hfa 18 GM Inh (Albuterol Sulfate) 90 Mcg/Act Aer 2 Puff INH BID PRN Xarelto (Rivaroxaban) 15 Mg Tab 15 Mg PO DAILY Humulin 70-30 Inj (Insulin NPH Isophane-Reg (Human) 70-30 Inj) 1,000 Unit/10 Ml Vial 15 SQ BID Novolin R Inj (Insulin Human Regular) 1,000 Unit/10 Ml Vial 7 Units SQ DAILY Digoxin 0.125 Mg Tab 0.125 Mg PO DAILY Atorvastatin (Atorvastatin Calcium) 20 Mg Tab 20 Mg PO HS Allopurinol 100 Mg Tab 100 Mg PO DAILY Narrative Medication Allergies and medications reviewed Review of Systems Except as stated in HPI: all other systems reviewed are Neg General / Constitutional: No: Fever Eyes: No: Visual changes HENT: No: Headaches Cardiovascular: Positive: Dyspnea on exertion, No: Chest Pain or Discomfort, Palpitations, Irregular Rhythm, Claudication Respiratory: Positive: Shortness of Breath, Orthopnea, No: Hemoptysis, Stridor , Night Sweats, Pleuritic Pain Gastrointestinal: No: Abdominal Pain Genitourinary: No: Dysuria Musculoskeletal: Positive: Edema, No: Pain Skin: No Rash Neurologic: No: Weakness Psychiatric: No: Depression Endocrine: No: Polydipsia Hematologic/Lymphatic: No: Easy Bruising Physical Exam Narrative GENERAL: Awake and alert, mild to moderate respiratory distress. SKIN: Warm and dry. No diaphoresis cyanosis pallor or rashes HEAD: Atraumatic. Normocephalic. EYES: Pupils equal and round. No scleral icterus. No injection or drainage. ENT: No nasal bleeding or discharge. Mucous membranes pink and moist. NECK: Trachea midline. No JVD. Supple full range of motion no stridor CARDIOVASCULAR: Regular rate and rhythm. RESPIRATORY: No accessory muscle use. Clear to auscultation. Breath sounds equal bilaterally. GASTROINTESTINAL: Abdomen soft, non-tender, nondistended. Hepatic and splenic margins not palpable. MUSCULOSKELETAL: Bilateral lower extremity edema 2+ equal bilateral NEUROLOGICAL: Awake and alert. No obvious cranial nerve deficits. Motor grossly within normal limits. Five out of 5 muscle strength in the arms and legs. Normal speech. PSYCHIATRIC: Appropriate mood and affect; insight and judgment normal. Data Data Last Documented VS Vital Signs Date Time Temp Pulse Resp B/P (MAP) Pulse Ox O2 Delivery O2 Flow Rate FiO2 09/03/17 05:16 60 18 105/64 (78) 96 2.00 09/03/17 01:08 Nasal Cannula 09/03/17 00:57 97.9 Orders Orders Complete Blood Count With Diff (09/03/17 01:07) Comprehensive Metabolic Panel (09/03/17 01:07) B-Type Natriuretic Peptide (09/03/17 01:07) Act Partial Throm Time (Ptt) (09/03/17 01:07) Prothrombin Time / Inr (Pt) (09/03/17 01:07) Magnesium (Mg) (09/03/17 01:07) Ckmb (Isoenzyme) Profile (09/03/17 01:07) Troponin I (09/03/17 01:07) Urinalysis - C+S If Indicated (09/03/17 01:07) Influenzae A/B Antigen (09/03/17 01:07) Iv Access Insert/Monitor (09/03/17 01:07) Electrocardiogram (09/03/17 01:07) Ecg Monitoring (09/03/17 01:07) Oximetry (09/03/17 01:07) Oxygen Administration (09/03/17 01:07) Chest, Single Ap (09/03/17 01:07) Sodium Chloride 0.9% Flush (Ns Flush) (09/03/17 01:15) Nitroglycerin Sl (Nitrostat Sl) (09/03/17 01:15) Nitroglycerin 2% Oint (Nitroglycerin 2% (09/03/17 01:15) Furosemide Inj (Lasix Inj) (09/03/17 01:15) CKMB (09/03/17 01:15) CKMB% (09/03/17 01:15) Aspirin (Aspirin) (09/03/17 03:00) Oxycodone-Acetamin 5-325 Mg (Percocet (09/03/17 03:30) Troponin I (09/03/17 03:37) Electrocardiogram (09/03/17 ) Heparin Inj (Heparin Inj) (09/03/17 05:00) Heparin-D5w 25,000 U/250 Ml (Heparin-D5w (09/03/17 05:00) Cbc No Diff, Includes Plts (09/06/17 06:00) Act Partial Throm Time (Ptt) (09/03/17 11:52) Occult Blood (Hemoccult) Stool (09/03/17 04:52) Act Partial Throm Time (Ptt) (09/03/17 11:17) Admit Order (Ed Use Only) (09/03/17 05:45) Labs Laboratory Tests Test 09/03/17 01:15 09/03/17 02:45 09/03/17 03:45 White Blood Count 9.3 TH/MM3 Red Blood Count 3.90 MIL/MM3 Hemoglobin 13.4 GM/DL Hematocrit 39.2 % Mean Corpuscular Volume 100.4 FL Mean Corpuscular Hemoglobin 34.2 PG Mean Corpuscular Hemoglobin Concent 34.1 % Red Cell Distribution Width 16.6 % Platelet Count 123 TH/MM3 Mean Platelet Volume 9.7 FL Neutrophils (%) (Auto) 66.1 % Lymphocytes (%) (Auto) 20.2 % Monocytes (%) (Auto) 10.4 % Eosinophils (%) (Auto) 2.8 % Basophils (%) (Auto) 0.5 % Neutrophils # (Auto) 6.1 TH/MM3 Lymphocytes # (Auto) 1.9 TH/MM3 Monocytes # (Auto) 1.0 TH/MM3 Eosinophils # (Auto) 0.3 TH/MM3 Basophils # (Auto) 0.0 TH/MM3 CBC Comment DIFF FINAL Differential Comment Prothrombin Time 12.1 SEC Prothromb Time International Ratio 1.2 RATIO Activated Partial Thromboplast Time 26.2 SEC Blood Urea Nitrogen 22 MG/DL Creatinine 1.72 MG/DL Random Glucose 188 MG/DL Total Protein 7.0 GM/DL Albumin 3.5 GM/DL Calcium Level 8.0 MG/DL Magnesium Level 1.8 MG/DL Alkaline Phosphatase 83 U/L Aspartate Amino Transf (AST/SGOT) 57 U/L Alanine Aminotransferase (ALT/SGPT) 93 U/L Total Bilirubin 0.9 MG/DL Sodium Level 140 MEQ/L Potassium Level 4.5 MEQ/L Chloride Level 106 MEQ/L Carbon Dioxide Level 25.4 MEQ/L Anion Gap 9 MEQ/L Estimat Glomerular Filtration Rate 39 ML/MIN Total Creatine Kinase 160 U/L Creatine Kinase MB 4.1 NG/ML Troponin I 0.13 NG/ML 0.25 NG/ML B-Type Natriuretic Peptide 1697 PG/ML Urine Color LIGHT-YELLOW Urine Turbidity CLEAR Urine pH 7.0 Urine Specific [place] 1.004 Urine Protein NEG mg/dL Urine Glucose (UA) NEG mg/dL Urine Ketones NEG mg/dL Urine Occult Blood NEG Urine Nitrite NEG Urine Bilirubin NEG Urine Urobilinogen LESS THAN 2.0 MG/DL Urine Leukocyte Esterase NEG Urine RBC LESS THAN 1 /hpf Urine WBC 1 /hpf Microscopic Urinalysis Comment CULT NOT INDICATED MDM Medical Decision Making Medical Screen Exam Complete: Yes Emergency Medical Condition: Yes Medical Record Reviewed: Yes Differential Diagnosis CHF, edema, myocardial infarction Narrative Course EKG: Sinus rhythm at 83 bpm with prolonged OH, widened QRS/IVCD versus combined left and right bundle Chest x-ray right lower effusion with pulmonary vascular congestion bilateral versus infiltrate right lower Laboratory examinations reviewed. Patient's troponins 0 hour is 0.13. Repeated 3 hours 0.25 incremental increase. Patient has no chest pain, markedly improved shortness of breath. Patient's troponin has doubled in that timeframe. Aspirin given the patient's presentation, heparin ACS protocol started Repeat EKG, much improved tracing, reveals patient has electronic pacemaker atrial sensed Case discussed with hospitalist service Dr. Pineda, admitted Diagnosis Primary Impression: CHF exacerbation Qualified Codes: I50.9 - Heart failure, unspecified Additional Impression: Non-STEMI (non-ST elevated myocardial infarction) Admitting Information Admitting Physician Requests: Admit Jose Hutson MD Sep 03, 2017 05:01
[2017-09-03] MEDS ORDERED: NALOXONE HCL 0.4 MG/ML AMP IV PUSH PRN (06:00)
[2017-09-03] MEDS ORDERED: SODIUM CHLORIDE 0.9% FLUSH 10 ML FLUSH IV FLUSH PRN (06:00)
[2017-09-03] MEDS ORDERED: ENOXAPARIN SODIUM 40 MG/0.4 ML SYRINGE SQ SCH (06:00)
[2017-09-03] MEDS: SODIUM CHLORIDE 0.9% FLUSH 10 ML FLUSH IV FLUSH SCH ×2 (08:17→21:00)
[2017-09-03] MEDS: FUROSEMIDE 40 MG/4 ML VIAL IV PUSH SCH ×2 (09:53→17:17)
[2017-09-03 11:52] LABS: TROPONIN I 0.26 NG/ML (0.02-0.05)
--- NOTE | 2017-09-03 15:40 | HHI.HP ---
[facility] Karla Sandoval MD Admission Diagnosis CHF Exacerbation, Non-STEMI Diagnoses: Chief Complaint: Shortness of breath Travel History International Travel<30 Days: No Contact w/Intl Traveler <30 Da: No Traveled to Known Affected Are: No History of Present Illness 72-year-old male with a medical history significant for CHF, CAD status post previous stents, A. fib, history of pacemaker/AICD placement, hypertension, diabetes who presented to the emergency room with complaint of worsening shortness of breath over the past few days. Patient admits that he went to [facility] a few days ago and had a lot of food buffet style. Since then he noticed he has been gaining weight and retaining water. He increased his Lasix up to 60 mg a day with some improvement in lower extremity edema but he continues to be short of breath with inability to lay flat. Workup in the emergency room was consistent with acute CHF exacerbation. Patient also has elevated cardiac enzymes and was started on heparin per ACS protocol. On my evaluation, he denies chest pain. He received IV Lasix in the consumed with good response. He reports that he is feeling better. Review of Systems Constitutional: COMPLAINS OF: Weight gain Respiratory: COMPLAINS OF: Shortness of breath Cardiovascular: COMPLAINS OF: Dyspnea on Exertion, Lower Extremity Edema, Orthopnea, DENIES: Chest pain, Palpitations Gastrointestinal: DENIES: Nausea, Vomiting Except as stated in HPI: all other systems reviewed are Neg Past Family Social History Past Medical History CHF, CAD status post previous stents, A. fib, history of pacemaker/AICD placement, hypertension, diabetes Past Surgical History Tonsillectomy AICD placement Reported Medications Reported Meds & Active Scripts Active Ilevro Opth Drops (Nepafenac) 0.3 % Soln 1 Drop LEFT EYE DAILY Durezol Opth (Difluprednate Opth) 0.05% Emul 1 Drop LEFT EYE QID Reported Sirisha 128 Opth Oint (Sodium Chloride) 5 % Oint 1 Applic LEFT EYE QID Pacerone (Amiodarone HCl) 100 Mg Tab 100 Mg PO DAILY Entresto (Sacubitril-Valsartan) 24-26 Mg Tab 1 Tab PO BID Multiple Vitamin 1 Tab 1 Tab PO DAILY Vitamin D3 (Cholecalciferol) 2,000 Unit Cap 2,000 Units PO DAILY Striverdi Respimat Inh (Olodaterol Inh) 2.5 Mcg/Act Aer Divalproex ER (Divalproex Sodium) 500 Mg Tab 1,000 Mg PO DAILY Furosemide 20 Mg Tab 20 Mg PO DAILY Carvedilol 12.5 Mg Tab 12.5 Mg PO BID Ventolin Hfa 18 GM Inh (Albuterol Sulfate) 90 Mcg/Act Aer 2 Puff INH BID PRN Xarelto (Rivaroxaban) 15 Mg Tab 15 Mg PO DAILY Humulin 70-30 Inj (Insulin NPH Isophane-Reg (Human) 70-30 Inj) 1,000 Unit/10 Ml Vial 15 SQ BID Novolin R Inj (Insulin Human Regular) 1,000 Unit/10 Ml Vial 7 Units SQ DAILY Digoxin 0.125 Mg Tab 0.125 Mg PO DAILY Atorvastatin (Atorvastatin Calcium) 20 Mg Tab 20 Mg PO HS Allopurinol 100 Mg Tab 100 Mg PO DAILY Allergies: Coded Allergies: hydrocodone (Verified Allergy, Intermediate, Causes Itching, 09/03/17) Family History Reviewed and found to be noncontributory. Social History Patient quit using tobacco over 30 years ago. Admits to occasional alcohol. Physical Exam Vital Signs Vital Signs Date Time Temp Pulse Resp B/P (MAP) Pulse Ox O2 Delivery O2 Flow Rate FiO2 09/03/17 11:32 53 14 95/53 (67) 93 Nasal Cannula 2.00 09/03/17 08:14 Nasal Cannula 2.00 09/03/17 08:09 60 14 110/64 (79) 96 Nasal Cannula 2.00 09/03/17 05:16 60 18 105/64 (78) 96 2.00 09/03/17 01:08 97 Nasal Cannula 2.00 09/03/17 01:05 83 28 88 09/03/17 00:57 97.9 83 24 146/78 (100) 94 Physical Exam GENERAL: This is a well-nourished, well-developed patient, in no apparent distress. SKIN: No rashes, ecchymoses or lesions. Cool and dry. HEAD: Atraumatic. Normocephalic. No temporal or scalp tenderness. EYES: Pupils equal round and reactive. Extraocular motions intact. No scleral icterus. No injection or drainage. ENT: Nose without bleeding, purulent drainage or septal hematoma. Throat without erythema, tonsillar hypertrophy or exudate. Uvula midline. Airway patent. NECK: Trachea midline. No JVD or lymphadenopathy. Supple, nontender, no meningeal signs. CARDIOVASCULAR: Regular rate and rhythm without murmurs, gallops, or rubs. RESPIRATORY: Faint bilateral basilar crackles. Otherwise the rest of the lung wilson are clear to auscultation. GASTROINTESTINAL: Abdomen soft, non-tender, nondistended. No hepato-splenomegaly , or palpable masses. No guarding. MUSCULOSKELETAL: 1+ bilateral lower extremity edema. Negative Homans sign bilaterally. NEUROLOGICAL: Awake and alert. Cranial nerves II through XII intact. Motor and sensory grossly within normal limits. Five out of 5 muscle strength in all muscle groups. Normal speech. Laboratory Laboratory Tests Test 09/03/17 01:15 09/03/17 02:45 09/03/17 03:45 09/03/17 10:57 White Blood Count 9.3 Red Blood Count 3.90 Hemoglobin 13.4 Hematocrit 39.2 Mean Corpuscular Volume 100.4 Mean Corpuscular Hemoglobin 34.2 Mean Corpuscular Hemoglobin Concent 34.1 Red Cell Distribution Width 16.6 Platelet Count 123 Mean Platelet Volume 9.7 Neutrophils (%) (Auto) 66.1 Lymphocytes (%) (Auto) 20.2 Monocytes (%) (Auto) 10.4 Eosinophils (%) (Auto) 2.8 Basophils (%) (Auto) 0.5 Neutrophils # (Auto) 6.1 Lymphocytes # (Auto) 1.9 Monocytes # (Auto) 1.0 Eosinophils # (Auto) 0.3 Basophils # (Auto) 0.0 CBC Comment DIFF FINAL Differential Comment Prothrombin Time 12.1 Prothromb Time International Ratio 1.2 Activated Partial Thromboplast Time 26.2 53.7 Blood Urea Nitrogen 22 Creatinine 1.72 Random Glucose 188 Total Protein 7.0 Albumin 3.5 Calcium Level 8.0 Magnesium Level 1.8 Alkaline Phosphatase 83 Aspartate Amino Transf (AST/SGOT) 57 Alanine Aminotransferase (ALT/SGPT) 93 Total Bilirubin 0.9 Sodium Level 140 Potassium Level 4.5 Chloride Level 106 Carbon Dioxide Level 25.4 Anion Gap 9 Estimat Glomerular Filtration Rate 39 Total Creatine Kinase 160 154 Creatine Kinase MB 4.1 Troponin I 0.13 0.25 0.26 B-Type Natriuretic Peptide 1697 Urine Color LIGHT-YELLOW Urine Turbidity CLEAR Urine pH 7.0 Urine Specific [place] 1.004 Urine Protein NEG Urine Glucose (UA) NEG Urine Ketones NEG Urine Occult Blood NEG Urine Nitrite NEG Urine Bilirubin NEG Urine Urobilinogen LESS THAN 2.0 Urine Leukocyte Esterase NEG Urine RBC LESS THAN 1 Urine WBC 1 Microscopic Urinalysis Comment CULT NOT INDICATED Date/Time Source Procedure Growth Status 09/03/17 01:05 Nasal Washing Influenza Types A,B Antigen (ZHENG) - Final NEGATIVE FOR FLU A AND B ANTIGEN.... Complete Result Diagram: 09/03/1711409/03/17114 Imaging Last Impressions Chest X-Ray 09/03/17106 Signed Impressions: Service Date/Time: Sunday, September 03, 2017 01:25 - CONCLUSION: Patchy basilar airspace disease. MD Alisa El VTE Risk Assessment Alisa VTE Risk Assessment: Mod/High Risk (score >= 2) Caprini Risk Assessment Model Point Value = 1 Point Value = 2 Point Value = 3 Point Value = 5 Age 41-60 Minor surgery BMI > 25 kg/m2 Swollen legs Varicose veins or History of unexplained or recurrent spontaneous Oral contraceptives or hormone replacement Sepsis (< 1 month) Serious lung disease, including pneumonia (< 1 month) Abnormal pulmonary function Acute myocardial infarction Congestive heart failure (< 1 month) History of inflammatory bowel disease Medical patient at bed rest Age 61-74 Arthroscopic surgery Major open surgery (> 45 min) Laparoscopic surgery (> 45 min) Malignancy Confined to bed (> 72 hours) Immobilizing plaster cast Central venous access Age >= 75 History of VTE Family history of VTE Factor V Leiden Prothrombin [id number] Lupus anticoagulant Anticardiolipin antibodies Elevated serum homocysteine Heparin-induced thrombocytopenia Other congenital or acquired thrombophilia Stroke (< 1 month) Elective arthroplasty Hip, pelvis, or leg fracture Acute spinal cord injury (< 1 month) Prophylaxis Regimen Total Risk Factor Score Risk Level Prophylaxis Regimen 0-1 Low Early ambulation 2 Moderate Order ONE of the following: *Sequential Compression Device (SCD) *Heparin 5000 units SQ BID 3-4 Higher Order ONE of the following medications: *Heparin 5000 units SQ TID *Enoxaparin/Lovenox 40 mg SQ daily (WT < 150 kg, CrCl > 30 mL/min) *Enoxaparin/Lovenox 30 mg SQ daily (WT < 150 kg, CrCl > 10-29 mL/min) *Enoxaparin/Lovenox 30 mg SQ BID (WT < 150 kg, CrCl > 30 mL/min) AND/OR *Sequential Compression Device (SCD) 5 or more Highest Order ONE of the following medications: *Heparin 5000 units SQ TID (Preferred with Epidurals) *Enoxaparin/Lovenox 40 mg SQ daily (WT < 150 kg, CrCl > 30 mL/min) *Enoxaparin/Lovenox 30 mg SQ daily (WT < 150 kg, CrCl > 10-29 mL/min) *Enoxaparin/Lovenox 30 mg SQ BID (WT < 150 kg, CrCl > 30 mL/min) AND *Sequential Compression Device (SCD) Assessment and Plan Problem List: (1) Acute on chronic systolic CHF (congestive heart failure) ICD Code: I50.23 - Acute on chronic systolic (congestive) heart failure Plan: Likely secondary to dietary indiscretion. Responding to IV Lasix. - Continue IV Lasix, strict I/O. Monitor weight. Continue home dose heart failure medications including Entresto, coreg. -2D echocardiogram was ordered. - Consult the patient's meal attendant for assistance. (2) Non-STEMI (non-ST elevated myocardial infarction) ICD Code: I21.4 - Non-ST elevation (NSTEMI) myocardial infarction Status: Acute Plan: Could be secondary to demand ischemia from CHF exacerbation. - Patient started on heparin per ACS protocol Cardiology consulted (3) CKD (chronic kidney disease) stage 3, GFR 30-59 ml/min ICD Code: N18.3 - Chronic kidney disease, stage 3 (moderate) Plan: Monitor closely with diuretics. Entresto is also a potent diuretic. Follow-up BMP in a.m. (4) Diabetes ICD Code: E11.9 - Diabetes mellitus Status: Chronic (5) Atrial fibrillation ICD Code: I48.91 - Unspecified atrial fibrillation Plan: History of pacemaker placement. Continue digoxin, amiodarone, Xarelto Physician Certification 2 Midnight Certification Type: Admission for Inpatient Services Order for Inpatient Services The services are ordered in accordance with Medicare regulations or non- Medicare payer requirements, as applicable. In the case of services not specified as inpatient-only, they are appropriately provided as inpatient services in accordance with the 2-midnight benchmark. Estimated LOS (days): 2 days is the estimated time the patient will need to remain in the hospital, assuming treatment plan goals are met and no additional complications. Post-Hospital Plan: Home Lisset Lorenzana MD Sep 03, 2017 15:40
[2017-09-03] MEDS ORDERED: ALBUTEROL SULFATE 90 MCG/ACT HFA 8 GM INHALER INH PRN (16:15)
[2017-09-03] MEDS ORDERED: ACETAMINOPHEN/HYDROcodone 325 MG/5 MG TAB PO PRN (16:15)
[2017-09-03 17:28] LABS: TROPONIN I 0.22 NG/ML (0.02-0.05)
[2017-09-03] MEDS ORDERED: PILL SPLITTER OTHER PRN (17:30)
[2017-09-03] MEDS ORDERED: DIFLUPREDNATE OPTH LEFT EYE SCH (18:00)
[2017-09-03] MEDS ORDERED: [UNRECOGNIZED DRUG - OTHER] LEFT EYE SCH (18:00)
--- NOTE | 2017-09-03 19:46 | EKG ---
Date Performed: 09/03/2017 Time Performed: 11:45:53 PTAGE: 72 years EKG: ELECTRONIC DUAL CHAMBER PACEMAKER WITH APPROPRIATE CAPTURE ABNORMAL ECG PREVIOUS TRACING : 09/03/2017 05.07 Since the prior tracing, there has been no significant shoemaker DOCTOR: Stalin Bradley Interpretating Date/Time 09/03/2017 19:44:42
[2017-09-03] MEDS ORDERED: ATORVASTATIN 20 MG TAB PO SCH (21:00)
--- NOTE | 2017-09-03 21:05 | EKG ---
Date Performed: 09/03/2017 Time Performed: 05:07:54 PTAGE: 72 years EKG: ELECTRONIC ATRIAL PACEMAKER MARKED LEFT AXIS DEVIATION INTRAVENTRICULAR CONDUCTION DELAY AB NORMAL ECG INTERPRETATION BASED ON A DEFAULT AGE OF 40 YEARS PREVIOUS TRACING : 12/15/2016 10.59 Since the prior tracing, there has been no significan t change DOCTOR: Stalin Bradley Interpretating Date/Time 09/03/2017 21:03:43
--- NOTE | 2017-09-03 21:21 | EKG ---
Date Performed: 09/03/2017 Time Performed: 01:06:15 PTAGE: 72 years EKG: Sinus rhythm WITH FIRST DEGREE AV BLOCK MARKED RIGHT AXIS DEVIATION INTRAVENTRICULAR CONDUCTION DELAY ABNORMAL EC G NO PREVIOUS TRACING DOCTOR: Stalin Bradley Interpretating Date/Time 09/03/2017 21:20:01
[2017-09-03] MEDS: CARVEDILOL 12.5 MG TAB PO SCH (21:57)
[2017-09-03] MEDS: SACUBITRIL/VALSARTAN 24 MG-26 MG TAB PO SCH (21:57)
--- NOTE | 2017-09-03 22:37 | MB ---
cc: ANDI RATLIFF MD DATE OF CONSULTATION 09/03/2017 DATE OF [address] Lisset Sheehan. REASON FOR CONSULTATION I was asked by Dr. Sheehan to evaluate the patient with congestive heart failure and coronary artery disease. HISTORY OF THE PRESENT ILLNESS Roberth Lerma is a very pleasant 72-year-old gentleman with past medical history significant for coronary artery disease, status post stent, paroxysmal atrial fibrillation, hypercholesterolemia and hypertension. He reports eating at a [employer] several days ago. He had surf and turf. A day later he noted progressive lower extremity swelling and shortness of breath with exertion. Over the next several days he had increased shortness of breath at rest and with exertion along with a progressive increase in his lower extremity edema. He increased his Lasix to 20 mg three times a day with some reduction in his edema and shortness of breath. However, yesterday because he had increased shortness of breath and inability to lay flat he sought emergency room evaluation. Emergency room evaluation showed chest x-ray patchy bibasilar airspace disease and atelectasis, cardiomegaly, mild CHF. ECG showed atrial paced rhythm, first-degree heart block, nonspecific intraventricular conduction delay / left bundle branch block. Pertinent laboratory data BNP 1697. Troponin 0.13, 0.25, 0.26, 0.22. Creatinine 1.72. Potassium 4.5, sodium 140. WBC 9.3, hemoglobin 13.4, hematocrit 39.2. MEDICATIONS Prior to admission: 1. Sirisha 128 ophthalmic solution. 2. Amiodarone 100 mg daily. 3. Entresto 24/26 milligrams twice a day. 4. Vitamin D. 5. Oxycodone / acetaminophen. 6. Lasix 20 milligrams daily. 7. Carvedilol 12.5 milligrams twice a day. 8. Ventolin MDI. 9. Xarelto 50 milligrams daily. 10. Novolin insulin. 11. Digoxin 0.125 milligrams daily. 12. Atorvastatin 20 milligrams daily. 13. Allopurinol 100 milligrams daily. ALLERGIES HYDROCODONE. PAST MEDICAL HISTORY As above. Additionally, he has: 1. Type 2 diabetes. 2. Gout. 3. COPD oxygen dependent at night. 4. Status post myocardial infarction 2001 and stent. PAST SURGICAL HISTORY 1. Status post shrapnel removed from left lower extremity is 1960s. 2. Status post AICD. SOCIAL HISTORY He does not smoke. He drinks alcohol only rarely / socially. No illicit drug use. REVIEW OF SYSTEMS As above. Twelve-point review of systems reviewed and noted. No recent fevers, chills, cough, sputum production. No recent gastrointestinal, genitourinary and neurologic symptoms. PHYSICAL EXAMINATION VITAL SIGNS: Temperature 97.7, pulse 59, respirations 18, blood pressure 114/75, O2 sat 97% 2 liters nasal cannula. GENERAL: He is in no acute distress, comfortable watching TV. HEENT: He is anicteric, PERRLA. No xanthelasmas. NECK: Flat JVD. No carotid bruits. LUNGS: With few bibasilar crackles. CARDIOVASCULAR: Regular rate and rhythm. 08/26 systolic murmur left lower sternal border. ABDOMEN: Soft and nontender. EXTREMITIES: With 2+ pitting edema. LABORATORY DATA As above. INR 1.2. IMPRESSION 1. Congestive heart failure due to dietary indiscretion, volume overload, clinically improved with IV Lasix diuresis. 2. Borderline elevated troponin levels of indeterminate significance in the setting of chronic renal insufficiency. 3. Chronic renal insufficiency. 4. Status post AICD, no discharge. 5. Hypertension, controlled. 6. Hypercholesterolemia. PLAN 1. Continue IV Lasix diuresis as systolic blood pressure and creatinine tolerate. 2. Will review echocardiogram and previous stress test from the office. He reports workup was done in the past 1-2 years. 3. All outpatient medications have been continued. 4. Hopefully can discharge in 24 to 48 hours. 5. No further cardiac workup anticipated. Thank you for allowing me to contribute to his care. Thank you for this consultation. MD ARUN Noonan/ADDISON /6:49 PM /10:04 PM
[2017-09-03] MEDS: oxyCODONE/ACETAMINOPHEN 5 MG/325 MG TAB PO PRN (23:05)
[2017-09-04] VITALS: BP 100/56; PULSE 61; RESP 19; TEMP 97.7; O2SAT 96
[2017-09-04 02:52] LABS: BASOPHIL % 0.4 % (0.0-2.0); EOSINOPHIL # 0.3 TH/MM3 (0-0.4); EOSINOPHIL % 4.3 % (0.0-4.0); HEMATOCRIT 36.6 % (39.0-51.0); HEMOGLOBIN 12.6 GM/DL (13.0-17.0); LYMPH % 35.4 % (9.0-44.0); LYMPHOCYTE # 2.2 TH/MM3 (1.0-4.8); MEAN CELL VOLUME 99.8 FL (80.0-100.0); MEAN CORPUSCULAR HEMOGLOBIN 34.3 PG (27.0-34.0); MEAN CORPUSCULAR HGB CONC 34.4 % (32.0-36.0); MEAN PLATELET VOLUME 9.4 FL (7.0-11.0); MONOCYTE # 0.7 TH/MM3 (0-0.9); NEUT % 47.9 % (16.0-70.0); PLATELET COUNT 114 TH/MM3 (150-450); RED BLOOD COUNT 3.67 MIL/MM3 (4.50-5.90); RED CELL DISTRIBUTION WIDTH 16.7 % (11.6-17.2); WHITE BLOOD COUNT 6.2 TH/MM3 (4.0-11.0)
[2017-09-04 03:02] LABS: BICARBONATE 33.3 MEQ/L (21.0-32.0); CALCIUM 8.3 MG/DL (8.5-10.1); CREATININE 1.8 MG/DL (0.60-1.30)
[2017-09-04 04:00] VITALS: BP 100/54; PULSE 60; RESP 18; TEMP 98.1; O2SAT 92
[2017-09-04 08:00] VITALS: BP 101/55; PULSE 60; RESP 16; TEMP 97.6; O2SAT 93
[2017-09-04] MEDS: SODIUM CHLORIDE 0.9% FLUSH 10 ML FLUSH IV FLUSH SCH (08:42)
[2017-09-04] MEDS: SACUBITRIL/VALSARTAN 24 MG-26 MG TAB PO SCH (08:44)
[2017-09-04] MEDS: CARVEDILOL 12.5 MG TAB PO SCH (08:47)
[2017-09-04] MEDS: oxyCODONE/ACETAMINOPHEN 5 MG/325 MG TAB PO PRN ×2 (08:50→14:30)
[2017-09-04] MEDS ORDERED: MULTIVITAMIN TAB PO SCH (09:00)
[2017-09-04] MEDS ORDERED: RIVAROXABAN 15 MG TAB PO SCH (09:00)
[2017-09-04] MEDS ORDERED: DIGOXIN 0.125 MG TAB PO SCH (09:00)
[2017-09-04] MEDS ORDERED: [UNRECOGNIZED DRUG - OTHER] LEFT EYE SCH (09:00)
[2017-09-04] MEDS ORDERED: AMIODARONE 200 MG TAB PO SCH (09:00)
[2017-09-04] MEDS ORDERED: CHOLECALCIFEROL (VIT D3) 1000 UNIT TAB PO SCH (09:00)
[2017-09-04] MEDS ORDERED: DIVALPROEX SODIUM E.R. 500 MG TAB PO SCH (09:00)
[2017-09-04] MEDS ORDERED: ALLOPURINOL 100 MG TAB PO SCH (09:00)
--- NOTE | 2017-09-04 09:57 | HHI.DCPOC ---
Discharge Care Plan Diagnosis: (1) Acute on chronic systolic CHF (congestive heart failure) (2) Elevated troponin (3) Diabetes (4) Atrial fibrillation Goals to Promote Your Health * To prevent worsening of your condition and complications * To maintain your health at the optimal level Directions to Meet Your Goals Take your medications as prescribed Follow your dietary instruction Follow activity as directed Keep your appointments as scheduled Take your immunizations and boosters as scheduled If your symptoms worsen call your PCP, if no PCP go to Urgent Care Center or Emergency Room Smoking is Dangerous to Your Health. Avoid second hand smoke Call the 24-hour hour crisis hotline for domestic abuse at Lisset Lorenzana MD Sep 04, 2017 09:57
--- NOTE | 2017-09-04 10:03 | HHI.PR ---
Subjective Remarks Patient reports he is feeling great today. He diuresed very well since presentation. No shortness of breath or chest pain. Feels great to go home. Objective Vitals Vital Signs Date Time Temp Pulse Resp B/P (MAP) Pulse Ox O2 Delivery O2 Flow Rate FiO2 09/04/17 08:00 97.6 60 16 101/55 (70) 93 09/04/17 04:00 60 09/04/17 04:00 98.1 60 18 100/54 (69) 92 09/04/17 00:00 97.7 61 19 100/56 (71) 96 09/03/17 23:52 62 09/03/17 20:12 60 09/03/17 16:01 97.7 59 18 114/75 (88) 97 09/03/17 15:42 09/03/17 11:32 53 14 95/53 (67) 93 Nasal Cannula 2.00 I/O 09/03/17 09/03/17 09/03/17 09/04/17 09/04/17 09/04/17 07:00 15:00 23:00 07:00 15:00 23:00 Output Total 2500 ml Balance -2500 ml Output Urine Total 2500 ml # Voids 3 Result Diagram: 09/04/17 0230 09/04/17 0230 Objective Remarks GENERAL: This is a well-nourished, well-developed patient, in no apparent distress. CARDIOVASCULAR: Normal rate and regular rhythm without murmurs, gallops, or rubs. RESPIRATORY: Good respiratory efforts. Breath sounds equal and clear to auscultation bilaterally. GASTROINTESTINAL: Abdomen soft, non-tender, non-distended. Normal active bowel sounds MUSCULOSKELETAL: Toro LE with trace edema NEURO: Alert & Oriented x4 to person, place, time, situation. Moves all ext x4 PSYCH: Appropriate mood and affect. A/P Problem List: (1) Acute on chronic systolic CHF (congestive heart failure) ICD Code: I50.23 - Acute on chronic systolic (congestive) heart failure Plan: Likely secondary to dietary indiscretion. -The patient had remarkable and quick response to IV diuretics. His symptoms completely resolved. Continue home dose heart failure medications including Entresto, coreg. -The patient was evaluated by cardiology. Apparently he had previous echo and stress test in the office. - He quickly improved and is deemed stable for discharge. He is advised to continue with higher dose of Lasix, 40 mg daily for the next 2 days and resume he is normal at 20 mg daily. He was counseled on fluid restriction and dietary compliance. He will follow-up outpatient with cardiology. (2) Non-STEMI (non-ST elevated myocardial infarction) ICD Code: I21.4 - Non-ST elevation (NSTEMI) myocardial infarction Status: Acute Plan: Probably secondary to demand ischemia from CHF exacerbation. Cardiac enzymes plateaued. Patient was seen by cardiology. No further inpatient workup indicated. (3) CKD (chronic kidney disease) stage 3, GFR 30-59 ml/min ICD Code: N18.3 - Chronic kidney disease, stage 3 (moderate) Plan: Stable (4) Diabetes ICD Code: E11.9 - Diabetes mellitus Status: Chronic Plan: Resume home dose medications. (5) Atrial fibrillation ICD Code: I48.91 - Unspecified atrial fibrillation Plan: History of pacemaker placement. Continue digoxin, amiodarone, Xarelto Discharge Planning Patient recovered quickly and is back as baseline. He is deemed stable for discharge home. Discharge home in good condition Meds: Per med rec Activity: Regular as tolerated Diet: Heart healthy, fluid restriction to 1.5 L a day Follow-up with: PCP and cardiology. Lisset Lorenzana MD Sep 04, 2017 10:03
--- NOTE | 2017-09-04 14:39 | ECHRPT ---
Indication: Unspecified combined systolic (congestive) and diastolic (congestive) heart failure CONCLUSIONS The left ventricular systolic function is severely reduced with an estimated ejection fraction in th e range of 30-35%. Wall thickness is measured at the upper limits of normal. Mildly dilated left ventricle. The left atrial size is moderately dilated. There is trace tricuspid valve regurgitation. The estimated pulmonary arterial pressure is 20.5 mmHg. BP: 110 / 64 HR: 60 Rhythm: Other MEASUREMENTS (Male / Female) Normal Values Technical Quality:Fair 2D ECHO LV Diastolic Diameter PLAX 6.0 cm 4.2 - 5.9 / 3.9 - 5.3 cm LV Systolic Diameter PLAX 5.3 cm IVS Diastolic Thickness 1.3 cm 0.6 - 1.0 / 0.6 - 0.9 cm LVPW Diastolic Thickness 1.2 cm 0.6 - 1.0 / 0.6 - 0.9 cm LV Relative Wall Thickness 0.4 LVOT Diameter 2.4 cm M-MODE Aortic Root Diameter MM 3.1 cm LA Systolic Diameter MM 5.2 cm LA Ao Ratio MM 1.7 AV Cusp Separation MM 2.2 cm DOPPLER AV Peak Velocity 141.0 cm/s AV Peak Gradient 8.0 mmHg LVOT Peak Velocity 88.4 cm/s LVOT Peak Gradient 3.1 mmHg AV Area Cont Eq pk 2.8 cm LV E' Lateral Velocity 6.7 cm/s LV E' Septal Velocity 5.5 cm/s TR Peak Velocity 162.0 cm/s TR Peak Gradient 10.5 mmHg Right Atrial Pressure 10.0 mmHg Pulmonary Artery Systolic Pressu 20.5 mmHg Right Ventricular Systolic Press 20.5 mmHg PV Peak Velocity 133.0 cm/s PV Peak Gradient 7.1 mmHg FINDINGS LEFT VENTRICLE The left ventricular systolic function is severely reduced with an estimated ejection fraction in th e range of 30-35%. Wall thickness is measured at the upper limits of normal. Mildly dilated left ventricle. RIGHT VENTRICLE Normal right ventricular size and systolic function. LEFT ATRIUM The left atrial size is moderately dilated. RIGHT ATRIUM The right atrial size is normal. ATRIAL SEPTUM Normal atrial septal thickness without atrial level shunting by limited color doppler interrogation. AORTA The aortic root and proximal ascending aorta are normal in size on limited imaging. MITRAL VALVE Structurally normal mitral valve. No mitral valve stenosis or regurgitation. AORTIC VALVE Trileaflet aortic valve. No aortic valve stenosis or regurgitation. TRICUSPID VALVE There is trace tricuspid valve regurgitation. The estimated pulmonary arterial pressure is 20.5 mmHg. PULMONARY VALVE No pulmonary valve regurgitation or stenosis. VESSELS The inferior vena cava is normal in size. PERICARDIUM No pericardial effusion. Arben Moraes MD, FACC, [facility] (Electronically Signed) Final Date:04 September 2017 14:38
[2017-09-04 15:00] VITALS: PULSE 67
[2017-09-04 15:57] VITALS: PULSE 59
== END 2017-09-04 17:40 | disposition home or self-care (01) | DRG 280 ==
LOC: NEPC 00:54 → NEDA 05:46 → N04B 16:11
PROVIDERS: ADMIT Family Medicine; ATTEND Family Medicine
DX: I13.0 Hypertensive heart and chronic kidney disease with heart failure and stage 1 through stage 4 chronic kidney disease, or unspecified chronic kidney disease (principal); I50.23 Acute on chronic systolic (congestive) heart failure; I21.4 Non-ST elevation (NSTEMI) myocardial infarction; E11.22 Type 2 diabetes mellitus with diabetic chronic kidney disease; I48.0 Paroxysmal atrial fibrillation; N18.3 Chronic kidney disease, stage 3 (moderate); I25.10 Atherosclerotic heart disease of native coronary artery without angina pectoris; M10.9 Gout, unspecified; E78.00 Pure hypercholesterolemia, unspecified; I44.7 Left bundle-branch block, unspecified; H91.90 Unspecified hearing loss, unspecified ear; J44.9 Chronic obstructive pulmonary disease, unspecified; M19.012 Primary osteoarthritis, left shoulder; I25.2 Old myocardial infarction; Z95.5 Presence of coronary angioplasty implant and graft; Z95.810 Presence of automatic (implantable) cardiac defibrillator; Z87.891 Personal history of nicotine dependence; Z79.4 Long term (current) use of insulin; Z99.81 Dependence on supplemental oxygen
CPT/HCPCS: 71045; 80048; 80053; 81001; 82550; 82552; 83735; 83880; 84484; 85025; 85610; 85730; 87804; 93005; 93306; 96365; 96375; J1644; J1940

== ENCOUNTER 2017-10-31 12:32 | Observation (INO) | payer MEDICARE, OTHER ==
[~2017-10-31] VITALS: Ht 170.2 cm; Wt 91.3 kg
[~2017-10-31 12:32] MED LIST changes: -HYDR-3516 PO; -OLOD1AER2; +OLOD1AER2 INH
[2017-10-31 12:40] VITALS: BP 91/51; PULSE 61; RESP 25; TEMP 98.5; O2SAT 92
[2017-10-31] MEDS ORDERED: SODIUM CHLORIDE 0.9% FLUSH 10 ML FLUSH IVF PRN (13:00)
[2017-10-31 13:21] LABS: AUTOMATED NEUTROPHIL # 2.9 TH/MM3 (1.8-7.7); BASOPHIL % 0.3 % (0.0-2.0); EOSINOPHIL # 0.2 TH/MM3 (0-0.4); EOSINOPHIL % 3.3 % (0.0-4.0); HEMATOCRIT 36.7 % (39.0-51.0); HEMOGLOBIN 12.3 GM/DL (13.0-17.0); LYMPH % 30.6 % (9.0-44.0); LYMPHOCYTE # 1.6 TH/MM3 (1.0-4.8); MEAN CELL VOLUME 100.9 FL (80.0-100.0); MEAN CORPUSCULAR HEMOGLOBIN 33.8 PG (27.0-34.0); MEAN CORPUSCULAR HGB CONC 33.5 % (32.0-36.0); MEAN PLATELET VOLUME 9.6 FL (7.0-11.0); MONO % 9.7 % (0.0-8.0); MONOCYTE # 0.5 TH/MM3 (0-0.9); NEUT % 56.1 % (16.0-70.0); PLATELET COUNT 124 TH/MM3 (150-450); RED BLOOD COUNT 3.63 MIL/MM3 (4.50-5.90); RED CELL DISTRIBUTION WIDTH 14.9 % (11.6-17.2); WHITE BLOOD COUNT 5.1 TH/MM3 (4.0-11.0)
[2017-10-31 13:31] LABS: INTERNATIONAL NORMALIZED RATIO 1.2 RATIO; PROTHROMBIN TIME - PATIENT 11.8 SEC (9.8-11.6)
[2017-10-31] MEDS ORDERED: ASPI81TA16 PO (13:34)
[2017-10-31] MEDS ORDERED: LEVI20TA PO (13:34)
[2017-10-31] MEDS ORDERED: NOVO7030P2 SQ (13:34)
[2017-10-31] MEDS ORDERED: PERC5TAB12 PO (13:34)
[2017-10-31] MEDS ORDERED: DIVA500T PO (13:34)
[2017-10-31 13:39] LABS: ALBUMIN 3.4 GM/DL (3.4-5.0); ALT (GPT) 43 U/L (12-78); AST (GOT) 38 U/L (15-37); BICARBONATE 29.6 MEQ/L (21.0-32.0); BLOOD UREA NITROGEN 22 MG/DL (7-18); CALCIUM 8.1 MG/DL (8.5-10.1); CHLORIDE 106 MEQ/L (98-107); CREATININE 1.83 MG/DL (0.60-1.30); GLOMERULAR FILTRATION RATE 37 ML/MIN (>89); GLUCOSE,RANDOM 152 MG/DL (74-106); SODIUM (NA) 144 MEQ/L (136-145)
[2017-10-31 13:43] LABS: ALKALINE PHOSPHATASE 98 U/L (45-117); TOTAL BILIRUBIN ADULT 0.8 MG/DL (0.2-1.0); TOTAL PROTEIN 6.9 GM/DL (6.4-8.2); TROPONIN I 0.04 NG/ML (0.02-0.05)
--- NOTE | 2017-10-31 14:13 | RADRPT ---
EXAM DATE/TIME: 10/31/2017 13:49 [facility] COMPARISON: CHEST SINGLE AP, September 03, 2017, 1:25. INDICATIONS : Short of breath. MEDICAL HISTORY : Myocardial infarction. SURGICAL HISTORY : Pacemaker. ENCOUNTER: Initial ACUITY: 1 day PAIN SCORE: 0/10 LOCATION: Bilateral chest FINDINGS: A single view of the chest demonstrates the lungs to be symmetrically aerated with mild bibasilar air space disease which actually has significantly improved from prior. No associated effusions. Lungs ar e otherwise clear. Heart size is normal. Left subclavian bipolar pacer and regional osseous structure s are all radiographically intact. CONCLUSION: 1. Minimal bibasilar airspace disease which is actually significantly improved when compared to prior . 2. Left subclavian bipolar pacer remains radiographically intact Tommy Ferguson MD on October 31, 2017 at 14:08 Board Certified Radiologist. This report was verified electronically.
[2017-10-31] MEDS ORDERED: FUROSEMIDE 20 MG/2 ML VIAL IV PUSH ONE (14:45)
[2017-10-31 14:53] VITALS: BP 105/62; PULSE 71; RESP 16; O2SAT 98
--- NOTE | 2017-10-31 15:16 | PD ---
HPI Chief Complaint: Respiratory Distress Time Seen by Provider: 12:59 Travel History International Travel<30 days: No Contact w/Intl Traveler<30days: No Traveled to known affect area: No History of Present Illness HPI Patient is a 72-year-old male who is sent in by his primary care doctor due to concerns for shortness of breath on exertion. He says over the past week, he has been feeling short of breath when walking. He says he also feels short of breath when laying flat. He has increased his Lasix in the past few days, but this has not seemed to help. He denies having any chest pain. He denies nausea or vomiting. He denies fever chills. He denies any cough or cold symptoms. Severity is mild. PFSH Past Medical History Hx Anticoagulant Therapy: Yes Asthma: Yes Blood Disorders: No Anxiety: Yes ( ) Depression: Yes ( ) Heart Rhythm Problems: Yes (PPM/ICD 2013) Cancer: No Cardiovascular Problems: Yes (CHF, AFIB, CARDIOMYOPATHY) High Cholesterol: Yes Chemotherapy: No Chest Pain: Yes (IN 2001.) Congestive Heart Failure: Yes COPD: Yes Diabetes: Yes Patient Takes Glucophage: No Diminished Hearing: Yes (nusrat hearing aids) Endocrine: Yes Gastrointestinal Disorders: No Glaucoma: No Genitourinary: No Hepatitis: Yes (DENIES) Hiatal Hernia: No Hypertension: Yes Immune Disorder: No Implanted Vascular Access Dvce: Yes Medical other: Yes (GOUT, HYPERLIPIDEMIA) Musculoskeletal: Yes (LEFT SHOULDER ARTHRITIS) Neurologic: No Psychiatric: No Reproductive: No Respiratory: Yes (COPD, OXYGEN VIA NASAL CANNULA AT NIGHT) Immunizations Current: Yes Myocardial Infarction: Yes (IN 2001, STENT PLACED.) Radiation Therapy: No Sleep Apnea: No Thyroid Disease: No Past Surgical History Abdominal Surgery: Yes (SHRAPNEL REMOVED FROM LEFT LOWER QUAD IN "THE '") AICD: Yes ([facility]) Arteriovenous Shunt: No Body Medical Devices: PPM/ICD Cardiac Surgery: Yes (STENT 2001, AICD ([facility])) Ear Surgery: No Endocrine Surgery: No Eye Surgery: No Genitourinary Surgery: No Gynecologic Surgery: No Insulin Pump: No Joint Replacement: No Pacemaker: Yes (PPM/ICD 09/2014 [facility]) Thoracic Surgery: No Tonsillectomy: Yes Other Surgery: Yes (LLQ SCHRAPNAL REMOVED, STENT) Social History Alcohol Use: Yes (rare) Tobacco Use: No (QUIT 1987) Substance Use: No Allergies-Medications (Allergen,Severity, Reaction): Coded Allergies: hydrocodone (Verified Allergy, Intermediate, Causes Itching, 09/03/17) Reported Meds & Prescriptions Reported Meds & Active Scripts Active Reported Percocet (Oxycodone-Acetaminophen) 5-325 mg Tab 1 Tab PO Q6H 14 Days Novolin 70-30 Inj (Insulin Human Isoph/Insulin Regular) 1,000 Unit/10 Ml Vial 15 Units SQ BID Levitra (Vardenafil) 20 Mg Tab 20 Mg PO DAILY PRN Aspirin Adult Low Strength (Aspirin) 81 Mg Tabdr 81 Mg PO DAILY Divalproex DR (Divalproex Sodium) 500 Mg Tabdr 1,000 Mg PO HS Pacerone (Amiodarone HCl) 100 Mg Tab 100 Mg PO DAILY Entresto (Sacubitril-Valsartan) 24-26 Mg Tab 1 Tab PO BID Multiple Vitamin 1 Tab 1 Tab PO DAILY Vitamin D3 (Cholecalciferol) 2,000 Unit Cap 2,000 Units PO DAILY Striverdi Respimat Inh (Olodaterol Inh) 2.5 Mcg/Act Aer 2 Puff INH DIRECTED Furosemide 20 Mg Tab 60 Mg PO DAILY Carvedilol 12.5 Mg Tab 12.5 Mg PO BID Xarelto (Rivaroxaban) 15 Mg Tab 15 Mg PO DAILY Novolin R Inj (Insulin Human Regular) 1,000 Unit/10 Ml Vial 5 Units SQ ACHS Digoxin 0.125 Mg Tab 0.125 Mg PO DAILY Atorvastatin (Atorvastatin Calcium) 20 Mg Tab 20 Mg PO HS Allopurinol 100 Mg Tab 100 Mg PO DAILY Review of Systems Except as stated in HPI: all other systems reviewed are Neg General / Constitutional: No: Fever, Chills HENT: No: Headaches, Lightheadedness Cardiovascular: Positive: Dyspnea on exertion, No: Chest Pain or Discomfort, Edema Respiratory: Positive: Shortness of Breath Musculoskeletal: No: Myalgias Skin: No Rash, No Change in Pigmentation Neurologic: No: Weakness, Dizziness Physical Exam Narrative GENERAL: Awake and alert, no acute distress. SKIN: Focused skin assessment warm/dry. HEAD: Atraumatic. Normocephalic. EYES: Pupils equal and round. No scleral icterus. ENT: No nasal bleeding or discharge. Mucous membranes pink and moist. NECK: Trachea midline. No JVD. CARDIOVASCULAR: Regular rate and rhythm. No murmur appreciated. RESPIRATORY: No accessory muscle use. Crackles at the left lung base.. Breath sounds equal bilaterally. GASTROINTESTINAL: Abdomen soft, non-tender, nondistended. MUSCULOSKELETAL: No obvious deformities. No clubbing. No cyanosis. No edema. NEUROLOGICAL: Awake and alert. No obvious cranial nerve deficits. Motor grossly within normal limits. Normal speech. PSYCHIATRIC: Appropriate mood and affect; insight and judgment normal. Data Data Last Documented VS Vital Signs Date Time Temp Pulse Resp B/P (MAP) Pulse Ox O2 Delivery O2 Flow Rate FiO2 10/31/17 14:53 71 16 105/62 (76) 98 Room Air 10/31/17 12:40 98.5 Orders Orders Complete Blood Count With Diff (10/31/17 12:59) Comprehensive Metabolic Panel (10/31/17 12:59) B-Type Natriuretic Peptide (10/31/17 12:59) Act Partial Throm Time (Ptt) (10/31/17 12:59) Prothrombin Time / Inr (Pt) (10/31/17 12:59) Troponin I (10/31/17 12:59) Iv Access Insert/Monitor (10/31/17 12:59) Ecg Monitoring (10/31/17 12:59) Oximetry (10/31/17 12:59) Oxygen Administration (10/31/17 12:59) Chest, Single Ap (10/31/17 12:59) Sodium Chloride 0.9% Flush (Ns Flush) (10/31/17 13:00) Electrocardiogram (10/31/17 12:54) Furosemide Inj (Lasix Inj) (10/31/17 14:45) Admit Order (Ed Use Only) (10/31/17 ) Labs Laboratory Tests Test 10/31/17 13:00 White Blood Count 5.1 TH/MM3 Red Blood Count 3.63 MIL/MM3 Hemoglobin 12.3 GM/DL Hematocrit 36.7 % Mean Corpuscular Volume 100.9 FL Mean Corpuscular Hemoglobin 33.8 PG Mean Corpuscular Hemoglobin Concent 33.5 % Red Cell Distribution Width 14.9 % Platelet Count 124 TH/MM3 Mean Platelet Volume 9.6 FL Neutrophils (%) (Auto) 56.1 % Lymphocytes (%) (Auto) 30.6 % Monocytes (%) (Auto) 9.7 % Eosinophils (%) (Auto) 3.3 % Basophils (%) (Auto) 0.3 % Neutrophils # (Auto) 2.9 TH/MM3 Lymphocytes # (Auto) 1.6 TH/MM3 Monocytes # (Auto) 0.5 TH/MM3 Eosinophils # (Auto) 0.2 TH/MM3 Basophils # (Auto) 0.0 TH/MM3 CBC Comment DIFF FINAL Differential Comment Prothrombin Time 11.8 SEC Prothromb Time International Ratio 1.2 RATIO Activated Partial Thromboplast Time 28.0 SEC Blood Urea Nitrogen 22 MG/DL Creatinine 1.83 MG/DL Random Glucose 152 MG/DL Total Protein 6.9 GM/DL Albumin 3.4 GM/DL Calcium Level 8.1 MG/DL Alkaline Phosphatase 98 U/L Aspartate Amino Transf (AST/SGOT) 38 U/L Alanine Aminotransferase (ALT/SGPT) 43 U/L Total Bilirubin 0.8 MG/DL Sodium Level 144 MEQ/L Potassium Level 3.9 MEQ/L Chloride Level 106 MEQ/L Carbon Dioxide Level 29.6 MEQ/L Anion Gap 8 MEQ/L Estimat Glomerular Filtration Rate 37 ML/MIN Troponin I 0.04 NG/ML B-Type Natriuretic Peptide 1011 PG/ML MDM Medical Decision Making Medical Screen Exam Complete: Yes Emergency Medical Condition: Yes Medical Record Reviewed: Yes Interpretation(s) ECG shows a paced rhythm Differential Diagnosis CHF exacerbation versus ACS versus pneumonia Narrative Course Patient is a 72-year-old male sent in by his primary DrPaulette due to dyspnea on exertion. Exam shows some crackles of the left lung base. IV established, labs sent. Labs concerning for a BNP of 1055. Chest x-ray shows minimal airspace disease. Patient given a small dose of Lasix. He says he is feeling better, but is still short of breath on exertion. He will be placed in [facility]U for further management. Last 24 hours Impressions Chest X-Ray 10/31/17 1259 Signed Impressions: Service Date/Time: Tuesday, October 31, 2017 13:49 - CONCLUSION: 1. Minimal bibasilar airspace disease which is actually significantly improved when compared to prior. 2. Left subclavian bipolar pacer remains radiographically intact Tommy Ferguson MD Diagnosis Primary Impression: CHF exacerbation Qualified Codes: I50.9 - Heart failure, unspecified Admitting Information Admitting Physician Requests: Observation Mayra Quiles MD Oct 31, 2017 15:16
[2017-10-31] MEDS ORDERED: GLUCAGON 1 MG/ML VIAL OTHER PRN (16:00)
[2017-10-31] MEDS ORDERED: DEXTROSE 50% IN WATER 50 ML VIAL(D50) IV PUSH PRN (16:00)
[2017-10-31] MEDS ORDERED: OLODATEROL INH SCH (16:00)
--- NOTE | 2017-10-31 16:07 | HHI.HP ---
HPI Service [facility] Hospitalists Primary Care Physician Karla Sandoval MD Admission Diagnosis CHF exacerbation Diagnoses: Chief Complaint: Progressive dyspnea Weight gain Travel History International Travel<30 Days: No Contact w/Intl Traveler <30 Da: No Traveled to Known Affected Are: No History of Present Illness Written by Natividad Mejia, acting as scribe for Dr. Mcmanus on 10/31/17 at 16: 02. This is a 72yo male with a PMHX significant for CAD s/p cardiac stent implant, systolic CHF, atrial fibrillation on Xarelto, DM type II, COPD on home oxygen at night and gout who presents to [facility] ED with complaints of progressive shortness of breath for the past 10 days. He states his breathing has decompensated significantly in the last 48rs. He endorses single episode of nausea and vomiting yesterday. He was sent over to the ED today by his PCP Dr. Sandoval. Patient reports one pillow orthopnea and PND. He reports weight gain of 4-5 pounds in the past week. He denies any significant swelling in the legs or feet. He endorses diet and medication compliance. He denies any cough or sputum production. He denies any chest pain. He normally walks 1/4 of a mile a day with his dog but has been unable to walk more than 200ft in the past 2 days due to extreme shortness of breath. Patient was recently admitted in Aug of this year with CHF exacerbation and echocardiogram obtained during that inpatient admission was significant for EF 30-35%. 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 In the ED, patient was given IV Lasix and reports he feels much better. His BNP is elevated at 1011. CXR shows minimal bibasilar airspace disease. Review of Systems Except as stated in HPI: all other systems reviewed are Neg Past Family Social History Past Medical History Atrial fibrillation on Xarelto Systolic CHF EF 30-35% CAD s/p VT and cardiac stent LAD 2001 DM, type II COPD, uses 2LNC at night Dyslipidemia CKD, stage 3 Gout Depression Anxiety Past Surgical History AICD Cardiac stent 2001 Shrapnel removed lower extremities in the 60s Tonsillectomy Reported Medications Percocet (Oxycodone-Acetaminophen) 5-325 mg Tab 1 Tab PO Q6H 14 Days Novolin 70-30 Inj (Insulin Human Isoph/Insulin Regular) 1,000 Unit/10 Ml Vial 15 Units SQ BID Levitra (Vardenafil) 20 Mg Tab 20 Mg PO DAILY PRN Aspirin Adult Low Strength (Aspirin) 81 Mg Tabdr 81 Mg PO DAILY Divalproex DR (Divalproex Sodium) 500 Mg Tabdr 1,000 Mg PO HS Pacerone (Amiodarone HCl) 100 Mg Tab 100 Mg PO DAILY Entresto (Sacubitril-Valsartan) 24-26 Mg Tab 1 Tab PO BID Multiple Vitamin 1 Tab 1 Tab PO DAILY Vitamin D3 (Cholecalciferol) 2,000 Unit Cap 2,000 Units PO DAILY Striverdi Respimat Inh (Olodaterol Inh) 2.5 Mcg/Act Aer 2 Puff INH DIRECTED Furosemide 20 Mg Tab 60 Mg PO DAILY Carvedilol 12.5 Mg Tab 12.5 Mg PO BID Xarelto (Rivaroxaban) 15 Mg Tab 15 Mg PO DAILY Novolin R Inj (Insulin Human Regular) 1,000 Unit/10 Ml Vial 5 Units SQ ACHS Digoxin 0.125 Mg Tab 0.125 Mg PO DAILY Atorvastatin (Atorvastatin Calcium) 20 Mg Tab 20 Mg PO HS Allopurinol 100 Mg Tab 100 Mg PO DAILY Allergies: Coded Allergies: hydrocodone (Verified Allergy, Intermediate, Causes Itching, 09/03/17) Active Ordered Medications Current Medications Medications (Trade) Dose Ordered Sig/Kathryn Route Start Time Stop Time Status Last Admin (NS Flush) 2 ml UNSCH PRN IVF 10/31/17 13:00 10/31/17 14:53 (D50w (Vial) Inj) 50 ml UNSCH PRN IV PUSH 10/31/17 16:00 UNV (Glucagon Inj) 1 mg UNSCH PRN OTHER 10/31/17 16:00 UNV (NovoLOG SUPPLEMENTAL SCALE) 1 ACHS SLIDING SCALE SQ 10/31/17 17:00 UNV (Lasix Inj) 40 mg DAILY IV PUSH 11/01/17 09:00 UNV (Zyloprim) 100 mg DAILY PO 11/01/17 09:00 UNV (Ecotrin Ec) 81 mg DAILY PO 11/01/17 09:00 UNV (Lipitor) 20 mg HS PO 10/31/17 21:00 UNV (Coreg) 12.5 mg BID PO 10/31/17 21:00 UNV (Lanoxin) 0.125 mg DAILY PO 11/01/17 09:00 UNV (Depakote Dr) 1,000 mg HS PO 10/31/17 21:00 UNV (NovoLIN 70/30 INJ) 15 units BID SQ 10/31/17 21:00 UNV (Xarelto) 15 mg DAILY PO 11/01/17 09:00 UNV (Entresto 24-26 Mg) 1 tab BID PO 10/31/17 21:00 UNV Non-Formulary Medication 100 mg DAILY PO 11/01/17 09:00 UNV Non-Formulary Medication 2 puff DIRECTED INH 10/31/17 16:00 UNV Family History Reviewed and found to be noncontributory. Social History Patient has a history of tobacco use but quit in 1987. He reports rare EtOH use a few times a year. He denies any illicit drug use. Physical Exam Vital Signs Vital Signs Date Time Temp Pulse Resp B/P (MAP) Pulse Ox O2 Delivery O2 Flow Rate FiO2 10/31/17 14:53 71 16 105/62 (76) 98 Room Air 10/31/17 13:33 95 Room Air 10/31/17 12:52 60 10/31/17 12:40 98.5 61 25 91/51 (64) 92 Physical Exam GENERAL: This is a well-nourished, well-developed male patient, in no apparent distress. Awake and alert. Lying flat on stretcher, appears comfortable. SKIN: No rashes, ecchymoses or lesions. Cool and dry. HEAD: Atraumatic. Normocephalic. No temporal or scalp tenderness. EYES: Pupils equal round and reactive. Extraocular motions intact. No scleral icterus. No injection or drainage. ENT: Nose without bleeding or purulent drainage. Throat without erythema, tonsillar hypertrophy or exudate. Uvula midline. Airway patent. NECK: Trachea midline. No JVD or lymphadenopathy. Supple, nontender, no meningeal signs. CARDIOVASCULAR: Regular rate and rhythm without murmurs, gallops, or rubs. RESPIRATORY: Clear to auscultation. Breath sounds equal bilaterally. No wheezes , rales, or rhonchi. GASTROINTESTINAL: Abdomen soft, non-tender, nondistended. No hepato-splenomegaly , or palpable masses. No guarding. MUSCULOSKELETAL: Extremities without clubbing, cyanosis 2+ BLE edema. No joint tenderness, effusion, or edema noted. No calf tenderness. NEUROLOGICAL: Awake and alert. Cranial nerves II through XII grossly intact. Motor and sensory grossly within normal limits. No focal neurologic finding appreciated. Normal speech. Laboratory Laboratory Tests Test 10/31/17 13:00 White Blood Count 5.1 Red Blood Count 3.63 Hemoglobin 12.3 Hematocrit 36.7 Mean Corpuscular Volume 100.9 Mean Corpuscular Hemoglobin 33.8 Mean Corpuscular Hemoglobin Concent 33.5 Red Cell Distribution Width 14.9 Platelet Count 124 Mean Platelet Volume 9.6 Neutrophils (%) (Auto) 56.1 Lymphocytes (%) (Auto) 30.6 Monocytes (%) (Auto) 9.7 Eosinophils (%) (Auto) 3.3 Basophils (%) (Auto) 0.3 Neutrophils # (Auto) 2.9 Lymphocytes # (Auto) 1.6 Monocytes # (Auto) 0.5 Eosinophils # (Auto) 0.2 Basophils # (Auto) 0.0 CBC Comment DIFF FINAL Differential Comment Prothrombin Time 11.8 Prothromb Time International Ratio 1.2 Activated Partial Thromboplast Time 28.0 Blood Urea Nitrogen 22 Creatinine 1.83 Random Glucose 152 Total Protein 6.9 Albumin 3.4 Calcium Level 8.1 Alkaline Phosphatase 98 Aspartate Amino Transf (AST/SGOT) 38 Alanine Aminotransferase (ALT/SGPT) 43 Total Bilirubin 0.8 Sodium Level 144 Potassium Level 3.9 Chloride Level 106 Carbon Dioxide Level 29.6 Anion Gap 8 Estimat Glomerular Filtration Rate 37 Troponin I 0.04 B-Type Natriuretic Peptide 1011 Result Diagram: 10/31/17 1300 10/31/17 1300 Imaging Last Impressions Chest X-Ray 10/31/17 1259 Signed Impressions: Service Date/Time: Tuesday, October 31, 2017 13:49 - CONCLUSION: 1. Minimal bibasilar airspace disease which is actually significantly improved when compared to prior. 2. Left subclavian bipolar pacer remains radiographically intact MD Alisa Ryan VTE Risk Assessment Caprini VTE Risk Assessment: Mod/High Risk (score >= 2) Caprini Risk Assessment Model Point Value = 1 Point Value = 2 Point Value = 3 Point Value = 5 Age 41-60 Minor surgery BMI > 25 kg/m2 Swollen legs Varicose veins or History of unexplained or recurrent spontaneous Oral contraceptives or hormone replacement Sepsis (< 1 month) Serious lung disease, including pneumonia (< 1 month) Abnormal pulmonary function Acute myocardial infarction Congestive heart failure (< 1 month) History of inflammatory bowel disease Medical patient at bed rest Age 61-74 Arthroscopic surgery Major open surgery (> 45 min) Laparoscopic surgery (> 45 min) Malignancy Confined to bed (> 72 hours) Immobilizing plaster cast Central venous access Age >= 75 History of VTE Family history of VTE Factor V Leiden Prothrombin [id number] Lupus anticoagulant Anticardiolipin antibodies Elevated serum homocysteine Heparin-induced thrombocytopenia Other congenital or acquired thrombophilia Stroke (< 1 month) Elective arthroplasty Hip, pelvis, or leg fracture Acute spinal cord injury (< 1 month) Prophylaxis Regimen Total Risk Factor Score Risk Level Prophylaxis Regimen 0-1 Low Early ambulation 2 Moderate Order ONE of the following: *Sequential Compression Device (SCD) *Heparin 5000 units SQ BID 3-4 Higher Order ONE of the following medications: *Heparin 5000 units SQ TID *Enoxaparin/Lovenox 40 mg SQ daily (WT < 150 kg, CrCl > 30 mL/min) *Enoxaparin/Lovenox 30 mg SQ daily (WT < 150 kg, CrCl > 10-29 mL/min) *Enoxaparin/Lovenox 30 mg SQ BID (WT < 150 kg, CrCl > 30 mL/min) AND/OR *Sequential Compression Device (SCD) 5 or more Highest Order ONE of the following medications: *Heparin 5000 units SQ TID (Preferred with Epidurals) *Enoxaparin/Lovenox 40 mg SQ daily (WT < 150 kg, CrCl > 30 mL/min) *Enoxaparin/Lovenox 30 mg SQ daily (WT < 150 kg, CrCl > 10-29 mL/min) *Enoxaparin/Lovenox 30 mg SQ BID (WT < 150 kg, CrCl > 30 mL/min) AND *Sequential Compression Device (SCD) Assessment and Plan Assessment and Plan 72yo male with a PMHX significant for CAD s/p cardiac stent implant, systolic CHF, atrial fibrillation on Xarelto, DM type II, COPD on home oxygen at night and gout who presents to [facility] ED with complaints of progressive shortness of breath for the past 10 days. Acute on chronic systolic CHF exacerbation Hx of AICD Echocardiogram 09/04/17 EF 30-35% BNP 1011 -Admit to RDU -continue with IV Lasix for diuresis. Hold home dose of po Lasix. Monitor electrolytes. -strict I&Os -heart healthy diabetic low salt fluid restricted diet -resume Coreg and Entresto -supplemental oxygen to maintain O2 sats >92% Atrial fibrillation on Xarelto Rate controlled -Continue patients home dose of Xarelto, Amiodarone, Coreg and Digoxin -monitor HR CAD s/p cardiac stents HTN HLD Patient has no complaints of chest pain at this time -continue on Coreg, Digoxin and Entresto -81mg ASA daily -continue on Lipitor 20mg daily -monitor BP and adjust treatment accordingly DM, type II -resume home dose of NPH 70/30 15u BID -A1c 7.7 08/12/17 -accuchecks and ISS CKD, stage III -creatinine/GFR appears near baseline -avoid nephrotoxic agents -monitor renal indices COPD, oxygen dependent at night on 2LNC -resume home bronchodilator therapy -Duonebs as needed -monitor respiratory status Gout, chronic -stable -resume home dose of Allopurinol DVT prophylaxis -Patient is on Xarelto above note was scribed by Ms.Shannon Mejia. I attest that I had a face-to- face encounter with the patient on the same day, and personally performed the history and physical exam and medical decision making. Discussed Condition With ED physician, patient Natividad Mejia Oct 31, 2017 16:07 Freya Mcmanus MD Oct 31, 2017 17:25
[2017-10-31] MEDS ORDERED: RESP: ALBUTEROL 2.5 MG/IPRATROPIUM 0.5 MG NEB (PRN) NEB (16:45)
[2017-10-31] MEDS: INSULIN ASPART SUPPLEMENTAL SCALE SQ SCH ×2 (17:00→23:39)
[2017-10-31] MEDS ORDERED: PILL SPLITTER OTHER PRN (17:15)
[2017-10-31 18:44] VITALS: BP 118/70; PULSE 60; RESP 20; TEMP 98.9; O2SAT 96
[2017-10-31 19:51] VITALS: BP 119/58; PULSE 63; RESP 18; TEMP 98.1; O2SAT 96
[2017-10-31] MEDS ORDERED: SACUBITRIL/VALSARTAN 24 MG-26 MG TAB PO SCH (21:00)
[2017-10-31] MEDS ORDERED: DIVALPROEX DR 500 MG TABEC PO SCH (21:00)
[2017-10-31] MEDS ORDERED: CARVEDILOL 12.5 MG TAB PO SCH (21:00)
[2017-10-31] MEDS ORDERED: INSULIN HUMAN NPH/R 70/30 1,000 UNITS/10 ML VIAL SQ SCH (21:00)
[2017-10-31] MEDS ORDERED: ATORVASTATIN 20 MG TAB PO SCH (21:00)
[2017-10-31 23:02] VITALS: BP 108/66; PULSE 61; RESP 20; TEMP 98.2; O2SAT 95
[2017-11-01 04:07] VITALS: BP 110/62; PULSE 62; RESP 18; TEMP 98.2; O2SAT 94
[2017-11-01 06:15] LABS: BICARBONATE 29.9 MEQ/L (21.0-32.0); CALCIUM 8.2 MG/DL (8.5-10.1); CREATININE 1.7 MG/DL (0.60-1.30)
--- NOTE | 2017-11-01 08:02 | HHI.PR ---
Subjective Remarks in no acute distress. resting comfortably. no sob. says that he could sleep well last night. no new complaints. Objective Vitals Vital Signs Date Time Temp Pulse Resp B/P (MAP) Pulse Ox O2 Delivery O2 Flow Rate FiO2 11/01/17 04:07 98.2 62 18 110/62 (78) 94 10/31/17 23:02 98.2 61 20 108/66 (80) 95 10/31/17 19:51 98.1 63 18 119/58 (78) 96 10/31/17 18:44 98.9 60 20 118/70 (86) 96 10/31/17 16:34 (76) 10/31/17 14:53 71 16 105/62 (76) 98 Room Air 10/31/17 13:33 95 Room Air 10/31/17 12:52 60 10/31/17 12:40 98.5 61 25 91/51 (64) 92 I/O 10/31/17 10/31/17 10/31/17 11/01/17 11/01/17 11/01/17 07:00 15:00 23:00 07:00 15:00 23:00 Intake Total 475 ml Balance 475 ml Intake Oral 475 ml Result Diagram: 10/31/17 1300 11/01/17 0437 Imaging Last Impressions Chest X-Ray 10/31/17 1259 Signed Impressions: Service Date/Time: Tuesday, October 31, 2017 13:49 - CONCLUSION: 1. Minimal bibasilar airspace disease which is actually significantly improved when compared to prior. 2. Left subclavian bipolar pacer remains radiographically intact Tommy Ferguson MD Objective Remarks GENERAL: This is a well-nourished, well-developed patient, in no apparent distress. CARDIOVASCULAR: Regular rate and regular rhythm without murmurs, gallops, or rubs. RESPIRATORY: Clear to auscultation. Breath sounds equal bilaterally. No wheezes , rales, or rhonchi. GASTROINTESTINAL: Abdomen soft, non-tender, nondistended. Normal, active bowel sounds MUSCULOSKELETAL: Extremities without clubbing, cyanosis, or edema. NEURO: Alert & Oriented x4 to person, place, time, situation. Moves all ext x4 Medications and IVs Inpatient Medications Albuterol/ Ipratropium (Duoneb Neb) 1 ampule Q4HR NEB PRN NEB dyspnea, wheezing , cough; Start 10/31/17 at 16:45 Allopurinol (Zyloprim) 100 mg DAILY PO ; Start 11/01/17 at 09:00 Amiodarone HCl (Cordarone) 100 mg DAILY PO ; Start 11/01/17 at 09:00 Aspirin (Ecotrin Ec) 81 mg DAILY PO ; Start 11/01/17 at 09:00 Atorvastatin Calcium (Lipitor) 20 mg HS PO Last administered on 10/31/17at 23:38 ; Start 10/31/17 at 21:00 Carvedilol (Coreg) 12.5 mg BID PO Last administered on 10/31/17at 23:38; Start 10/31/17 at 21:00 Dextrose (D50w (Vial) Inj) 50 ml UNSCH PRN IV PUSH HYPOGLYCEMIA-SEE COMMENTS; Start 10/31/17 at 16:00 Digoxin (Lanoxin) 0.125 mg DAILY PO ; Start 11/01/17 at 09:00 Divalproex Sodium (Depakote Dr) 1,000 mg HS PO Last administered on 10/31/17at 23:34; Start 10/31/17 at 21:00 Furosemide (Lasix Inj) 40 mg DAILY IV PUSH ; Start 11/01/17 at 09:00 Glucagon (Glucagon Inj) 1 mg UNSCH PRN OTHER HYPOGLYCEMIA-SEE COMMENTS; Start 10/31/17 at 16:00 Insulin Aspart (NovoLOG SUPPLEMENTAL SCALE) 1 ACHS SLIDING SCALE SQ Last administered on 10/31/17at 23:39; Start 10/31/17 at 17:00 Insulin Human Isoph/Insulin Regular (NovoLIN 70/30 INJ) 15 units BID SQ Last administered on 10/31/17at 23:39; Start 10/31/17 at 21:00 Miscellaneous (Pill Splitter) 1 ea UNSCH PRN OTHER SEE LABEL COMMENTS; Start at 17:15 Patient Own Medication PT OWN MED: STRIVE... DAILY INH ; Start 11/01/17 at 09:00 ; Status Future Hold Rivaroxaban (Xarelto) 15 mg DAILY PO ; Start 11/01/17 at 09:00 Sacubitril/ Valsartan (Entresto 24-26 Mg) 1 tab BID PO Last administered on at 23:35; Start 10/31/17 at 21:00 Sodium Chloride (NS Flush) 2 ml UNSCH PRN IVF FLUSH AFTER USING IV ACCESS Last administered on 10/31/17at 14:53; Start 10/31/17 at 13:00 A/P Assessment and Plan Acute on chronic systolic CHF exacerbation- improved. Hx of AICD Echocardiogram 09/04/17 EF 30-35% BNP 1011 -resume home dose of po Lasix. -heart healthy diabetic low salt fluid restricted diet -resumed Coreg and Entresto Atrial fibrillation on Xarelto Rate controlled -Continue patients home dose of Xarelto, Amiodarone, Coreg and Digoxin CAD s/p cardiac stents HTN HLD Patient has no complaints of chest pain at this time -continue on Coreg, Digoxin and Entresto -81mg ASA daily -continue on Lipitor 20mg daily DM, type II -resumed home dose of NPH 70/30 15u BID CKD, stage III -creatinine/GFR appears near baseline -avoid nephrotoxic agents COPD, oxygen dependent at night on 2LNC -resumed home bronchodilator therapy -Duonebs as needed Gout, chronic -stable -resumed home dose of Allopurinol DVT prophylaxis -Patient is on Xarelto Discharge Planning dc home today. f/u; pcp and cardiology. see med list. d/w the patient. Freya Mcmanus MD Nov 01, 2017 08:02
[2017-11-01] MEDS ORDERED: DIGOXIN 0.125 MG TAB PO SCH (09:00)
[2017-11-01] MEDS ORDERED: AMIODARONE 200 MG TAB PO SCH (09:00)
[2017-11-01] MEDS ORDERED: FUROSEMIDE 40 MG/4 ML VIAL IV PUSH SCH (09:00)
[2017-11-01] MEDS ORDERED: ALLOPURINOL 100 MG TAB PO SCH (09:00)
[2017-11-01] MEDS ORDERED: AMIODARONE 100 MG PO SCH (09:00)
[2017-11-01] MEDS ORDERED: ASPIRIN EC 81 MG TABEC PO SCH (09:00)
[2017-11-01] MEDS ORDERED: RIVAROXABAN 15 MG TAB PO SCH (09:00)
[2017-11-01] MEDS ORDERED: [UNRECOGNIZED DRUG - OTHER] INH SCH (09:00)
--- NOTE | 2017-11-01 16:49 | EKG ---
Date Performed: 10/31/2017 Time Performed: 12:54:51 PTAGE: 72 years EKG: ELECTRONIC ATRIAL PACEMAKER INDETERMINATE AXIS INTRAVENTRICULAR CONDUCTION DELAY Since the PREVIOUS TRACING , no significant change noted ABNORMAL ECG PREVIOUS TRACING 09/03/17 @ 11.45 DOCTOR: Milvia Dougherty Interpretating Date/Time 11/01/2017 16:48:15
== END 2017-11-01 09:01 | disposition home or self-care (01) ==
LOC: NEPE 12:32 → NEDA 15:14 → NEPHCDU 16:43
PROVIDERS: ADMIT Internal Medicine; ATTEND Internal Medicine
DX: I50.23 Acute on chronic systolic (congestive) heart failure (principal); I13.0 Hypertensive heart and chronic kidney disease with heart failure and stage 1 through stage 4 chronic kidney disease, or unspecified chronic kidney disease; N18.3 Chronic kidney disease, stage 3 (moderate); E11.22 Type 2 diabetes mellitus with diabetic chronic kidney disease; I25.10 Atherosclerotic heart disease of native coronary artery without angina pectoris; I25.2 Old myocardial infarction; I48.91 Unspecified atrial fibrillation; I42.9 Cardiomyopathy, unspecified; J44.9 Chronic obstructive pulmonary disease, unspecified; E78.5 Hyperlipidemia, unspecified; M10.9 Gout, unspecified; H91.90 Unspecified hearing loss, unspecified ear; E78.00 Pure hypercholesterolemia, unspecified; M19.012 Primary osteoarthritis, left shoulder; Z79.01 Long term (current) use of anticoagulants; Z79.82 Long term (current) use of aspirin; Z87.891 Personal history of nicotine dependence; Z95.5 Presence of coronary angioplasty implant and graft; Z95.810 Presence of automatic (implantable) cardiac defibrillator; Z99.81 Dependence on supplemental oxygen
CPT/HCPCS: 71045; 80048; 80053; 82948; 83880; 84484; 85025; 85610; 85730; 93005; 96372; 96374; 99285; G0378; J1815; J1940

== ENCOUNTER 2017-12-18 00:11 | Inpatient (IN) | payer MEDICARE, OTHER ==
[~2017-12-18] VITALS: Ht 182.9 cm; Wt 84.0 kg
[2017-12-18] VITALS (29 sets, daily range): BP systolic 77–141; BP diastolic 50–88; PULSE 60–91; RESP 0–40; TEMP 97.5–99.8; O2SAT 90–100
[~2017-12-18 00:11] MED LIST changes: +ASPI81TA16 PO; -DIFL0.0512 LEFT EYE; +DIVA500T PO; -DIVA500T3 PO; -HUMU70IN SQ; +LEVI20TA PO; -NACL5%O LEFT EYE; -NEPA0.3D LEFT EYE; +NOVO7030P2 SQ; +PERC5TAB12 PO; -VENTAER INH
[2017-12-18] MEDS ORDERED: METOCLOPRAMIDE HCL 10 MG/2 ML VIAL IV PUSH ONE (00:30)
[2017-12-18] MEDS ORDERED: NITROGLYCERIN 2% OINT 1 GM PACKET TOPICAL ONE (00:30)
[2017-12-18] MEDS ORDERED: RESP: ALBUTEROL 2.5 MG/IPRATROPIUM 0.5 MG NEB (SCH) INH ONE (00:30)
[2017-12-18] MEDS ORDERED: SODIUM CHLORIDE 0.9% FLUSH 10 ML FLUSH IVF PRN (00:30)
[2017-12-18] MEDS ORDERED: FUROSEMIDE 40 MG/4 ML VIAL IV PUSH ONE (00:30)
[2017-12-18 00:56] LABS: BASOPHIL % 0.4 % (0.0-2.0); EOSINOPHIL # 0.8 TH/MM3 (0-0.4); EOSINOPHIL % 9.3 % (0.0-4.0); HEMATOCRIT 43.5 % (39.0-51.0); HEMOGLOBIN 14.7 GM/DL (13.0-17.0); LYMPH % 41.6 % (9.0-44.0); LYMPHOCYTE # 3.6 TH/MM3 (1.0-4.8); MEAN CELL VOLUME 98.9 FL (80.0-100.0); MEAN CORPUSCULAR HEMOGLOBIN 33.5 PG (27.0-34.0); MEAN CORPUSCULAR HGB CONC 33.9 % (32.0-36.0); MONO % 14.1 % (0.0-8.0); MONOCYTE # 1.2 TH/MM3 (0-0.9); NEUT % 34.6 % (16.0-70.0); PLATELET COUNT 169 TH/MM3 (150-450); RED BLOOD COUNT 4.39 MIL/MM3 (4.50-5.90); RED CELL DISTRIBUTION WIDTH 15.9 % (11.6-17.2); WHITE BLOOD COUNT 8.6 TH/MM3 (4.0-11.0)
[2017-12-18] MEDS ORDERED: PROCHLORPERAZINE INJ 10 MG/2 ML VIAL IV PUSH ONE (01:00)
[2017-12-18 01:07] LABS: INTERNATIONAL NORMALIZED RATIO 1.3 RATIO; PROTHROMBIN TIME - PATIENT 13.1 SEC (9.8-11.6)
[2017-12-18] MEDS ORDERED: POTASSIUM CHLOR 20 MEQ PREMIX 100 ML IV PRN ×2 (01:15)
[2017-12-18] MEDS ORDERED: RESP: ALBUTEROL 2.5 MG/IPRATROPIUM 0.5 MG NEB (PRN) INH (01:15)
[2017-12-18] MEDS ORDERED: POTASSIUM CHLOR 40 MEQ PREMIX 100 ML IV PRN ×2 (01:15)
[2017-12-18] MEDS ORDERED: POTASSIUM PHOSPHATE INJ 30 MMOL in SODIUM CHLOR 0.9% 250 ML INJ 250 ML IV PRN (01:15)
[2017-12-18] MEDS ORDERED: POTASSIUM CHLORIDE 25 MEQ EFFERVESCENT TAB PO PRN (01:15)
[2017-12-18] MEDS ORDERED: DEXTROSE 50% IN WATER 50 ML VIAL(D50) IV PUSH PRN (01:15)
[2017-12-18] MEDS ORDERED: ETOMIDATE 20 MG/10 ML VIAL IV PUSH ONE (01:15)
[2017-12-18] MEDS ORDERED: MAGNESIUM SULFATE INJ 2 GM in SODIUM CHLORIDE 0.9% INJ 96 ML IV PRN (01:15)
[2017-12-18] MEDS ORDERED: SODIUM PHOSPHATE INJ 30 MMOL in SODIUM CHLOR 0.9% 250 ML INJ 240 ML IV PRN (01:15)
[2017-12-18] MEDS ORDERED: MAGNESIUM OXIDE 400 MG TAB PO PRN (01:15)
[2017-12-18] MEDS ORDERED: SUCCINYLCHOLINE CHLORIDE 200 MG/10 ML VIAL IV PUSH ONE (01:15)
[2017-12-18] MEDS ORDERED: MAGNESIUM SULFATE INJ 4 GM in SODIUM CHLORIDE 0.9% INJ 92 ML IV PRN (01:15)
[2017-12-18] MEDS ORDERED: POTASSIUM PHOSPHATE MONOBASIC 500 MG TAB PO PRN (01:15)
[2017-12-18] MEDS ORDERED: POTASSIUM PHOSPHATE MONOBASIC 500 MG TAB PO/TUBE PRN (01:15)
[2017-12-18 01:20] LABS: ALBUMIN 2.6 GM/DL (3.4-5.0); ALT (GPT) 63 U/L (12-78); AST (GOT) 94 U/L (15-37); BICARBONATE 26.8 MEQ/L (21.0-32.0); BLOOD UREA NITROGEN 30 MG/DL (7-18); CALCIUM 8.2 MG/DL (8.5-10.1); CHLORIDE 103 MEQ/L (98-107); CREATININE 2.16 MG/DL (0.60-1.30); GLOMERULAR FILTRATION RATE 30 ML/MIN (>89); GLUCOSE,RANDOM 199 MG/DL (74-106); MAGNESIUM 2.2 MG/DL (1.5-2.5); SODIUM (NA) 140 MEQ/L (136-145)
[2017-12-18 01:36] LABS: ALKALINE PHOSPHATASE 336 U/L (45-117); TOTAL BILIRUBIN ADULT 0.7 MG/DL (0.2-1.0); TOTAL PROTEIN 7.7 GM/DL (6.4-8.2)
[2017-12-18 01:37] LABS: DIGOXIN 1.1 NG/ML (0.8-2.0); TROPONIN I 0.07 NG/ML (0.02-0.05)
--- NOTE | 2017-12-18 01:59 | RADRPT ---
EXAM DATE: 12/18/2017 1:55 AM EDT AGE/SEX: 72 years / Male INDICATIONS: Post intubation. CLINICAL DATA: This is the patient's initial encounter. Patient reports that signs and symptoms have been present for 1 day and indicates a pain score of Nonresponsive. MEDICAL/SURGICAL HISTORY: None. Pacemaker. COMPARISON: [facility] [place], 12/18/2017. . FINDINGS: ET tube is present with tip overlapping approximately 3-4 above the carmelina. Perivascular pulmonary ed kiara is present not significantly changed. Focal consolidation is not seen. Left subclavian pacer wire s are present with tips in the right atrium and right ventricle. CONCLUSION: Placement of ET tube and otherwise not changed. Electronically signed by: Radha Tinoco MD 12/18/2017 1:57 AM EDT
[2017-12-18] MEDS ORDERED: FUROSEMIDE 100 MG/10 ML VIAL IV PUSH ONE (02:00)
[2017-12-18] MEDS: PROPOFOL 1000 MG/100 ML INJ 100 ML IV PRN ×3 (02:02→14:41)
--- NOTE | 2017-12-18 02:02 | PD ---
HPI Chief Complaint: Respiratory Distress Time Seen by Provider: 00:19 Travel History International Travel<30 days: No Contact w/Intl Traveler<30days: No Traveled to known affect area: No History of Present Illness HPI 72-year-old male presents to the emergency department from home for 1 day of progressively worsening shortness of breath acutely deteriorating over the past 1 hour with marked shortness of breath. EMS arrived stating that patient was initially found to have diminished breath sounds and some wheezing in the upper lung wilson abdomen after receiving DuoNeb updraft and albuterol had diffuse wheezing throughout with ongoing dyspnea and diaphoresis. Patient with history of CHF COPD and previous AL. Patient with pacemaker defibrillator. Patient very symptomatic with work of breathing and accessory muscle use speaking in interrupted sentences. No report of recent febrile illness patient denies chest pain. Patient unable to recall his solderer. Spouse not present with patient. Patient unable to recall his medications. PFSH Past Medical History Narrative Medical Xarelto therapy CHF diabetes COPD hypertension CHF dyslipidemia AL cardiac Stent placement dilated cardiomyopathy ischemic cardiomyopathy with AICD; nursing notes reviewed Hx Anticoagulant Therapy: Yes Asthma: Yes Blood Disorders: No Anxiety: Yes ( ) Depression: Yes ( ) Heart Rhythm Problems: Yes (PPM/ICD 2013 ([facility])) Cancer: No Cardiovascular Problems: Yes High Cholesterol: Yes Chemotherapy: No Chest Pain: No Congestive Heart Failure: Yes COPD: Yes Diabetes: Yes Patient Takes Glucophage: No Diminished Hearing: Yes (nusrat hearing aids) Endocrine: Yes Gastrointestinal Disorders: No Glaucoma: No Genitourinary: No Hepatitis: Yes (DENIES) Hiatal Hernia: No Hypertension: Yes Immune Disorder: No Implanted Vascular Access Dvce: Yes Medical other: Yes (GOUT, HYPERLIPIDEMIA) Musculoskeletal: Yes (LEFT SHOULDER ARTHRITIS) Neurologic: No Psychiatric: No Reproductive: No Respiratory: Yes Immunizations Current: Yes Myocardial Infarction: Yes (IN 2001, STENT PLACED.) Radiation Therapy: No Sleep Apnea: No Thyroid Disease: No Past Surgical History Abdominal Surgery: Yes (SHRAPNEL REMOVED FROM LEFT LOWER QUAD IN "THE 60'S") AICD: Yes ([facility]) Arteriovenous Shunt: No Body Medical Devices: PPM/ICD Cardiac Surgery: Yes (STENT 2001, AICD ([facility])) Ear Surgery: No Endocrine Surgery: No Eye Surgery: No Genitourinary Surgery: No Gynecologic Surgery: No Insulin Pump: No Joint Replacement: No Pacemaker: Yes (PPM/ICD 09/2014 [facility]) Thoracic Surgery: No Tonsillectomy: Yes Other Surgery: Yes (LLQ SCHRAPNAL REMOVED, STENT) Social History Alcohol Use: Yes (rare) Tobacco Use: No (QUIT 1987) Substance Use: No Allergies-Medications (Allergen,Severity, Reaction): Coded Allergies: hydrocodone (Verified Allergy, Intermediate, Causes Itching, 12/18/17) Reported Meds & Prescriptions Reported Meds & Active Scripts Active Reported Percocet (Oxycodone-Acetaminophen) 5-325 mg Tab 1 Tab PO Q6H 14 Days Novolin 70-30 Inj (Insulin Human Isoph/Insulin Regular) 1,000 Unit/10 Ml Vial 15 Units SQ BID Levitra (Vardenafil) 20 Mg Tab 20 Mg PO DAILY PRN Aspirin Adult Low Strength (Aspirin) 81 Mg Tabdr 81 Mg PO DAILY Divalproex DR (Divalproex Sodium) 500 Mg Tabdr 1,000 Mg PO HS Pacerone (Amiodarone HCl) 100 Mg Tab 100 Mg PO DAILY Entresto (Sacubitril-Valsartan) 24-26 Mg Tab 1 Tab PO BID Multiple Vitamin 1 Tab 1 Tab PO DAILY Vitamin D3 (Cholecalciferol) 2,000 Unit Cap 2,000 Units PO DAILY Striverdi Respimat Inh (Olodaterol Inh) 2.5 Mcg/Act Aer 2 Puff INH DIRECTED Furosemide 20 Mg Tab 60 Mg PO DAILY Carvedilol 12.5 Mg Tab 12.5 Mg PO BID Xarelto (Rivaroxaban) 15 Mg Tab 15 Mg PO DAILY Novolin R Inj (Insulin Human Regular) 1,000 Unit/10 Ml Vial 5 Units SQ ACHS Digoxin 0.125 Mg Tab 0.125 Mg PO DAILY Atorvastatin (Atorvastatin Calcium) 20 Mg Tab 20 Mg PO HS Allopurinol 100 Mg Tab 100 Mg PO DAILY Review of Systems Except as stated in HPI: all other systems reviewed are Neg General / Constitutional: No: Fever, Chills HENT: No: Congestion Cardiovascular: No: Chest Pain or Discomfort Respiratory: Positive: Cough, Shortness of Breath Genitourinary: No: Flank Pain Musculoskeletal: No: Pain Neurologic: Positive: Weakness Psychiatric: Positive: Anxiety Hematologic/Lymphatic: No: Easy Bruising Physical Exam Narrative GENERAL: Well-developed well-nourished diaphoretic pale elderly male in acute respiratory distress SKIN: Warm and diaphoretic. HEAD: Normocephalic. EYES: No scleral icterus. No injection or drainage. NECK: Supple, trachea midline. No JVD or lymphadenopathy. CARDIOVASCULAR: Increased regular rate and rhythm without murmurs, gallops, or rubs. RESPIRATORY: Breath sounds equal bilaterally with bibasilar crackles. No accessory muscle use. GASTROINTESTINAL: Abdomen soft, non-tender, nondistended. MUSCULOSKELETAL: No cyanosis, trace bipedal edema. BACK: Nontender without obvious deformity. No CVA tenderness. Data Data Last Documented VS Vital Signs Date Time Temp Pulse Resp B/P (MAP) Pulse Ox O2 Delivery O2 Flow Rate FiO2 12/18/17 01:50 60 16 110/64 (79) 97 Ventilator 12/18/17 01:45 40 12/18/17 00:57 4.00 12/18/17 00:20 99.8 Orders Orders Complete Blood Count With Diff (12/18/17:19) Comprehensive Metabolic Panel (12/18/17:) B-Type Natriuretic Peptide (12/18/17:19) Act Partial Throm Time (Ptt) (12/18/17:) Prothrombin Time / Inr (Pt) (12/18/17:19) Magnesium (Mg) (12/18/17:19) Ckmb (Isoenzyme) Profile (12/18/17:19) Troponin I (12/18/17:19) Urinalysis - C+S If Indicated (12/18/17:) Blood Culture (12/18/17:19) Iv Access Insert/Monitor (12/18/17:19) Electrocardiogram (12/18/17:19) Ecg Monitoring (12/18/17:19) Oximetry (12/18/17:19) Oxygen Administration (12/18/17:19) Sodium Chloride 0.9% Flush (Ns Flush) (12/18/17 00:30) Albuterol-Ipratropium Neb (Duoneb Neb) (12/18/17:30) Resp Bipap / Cpap Non Invas Vt (12/18/17 ) Digoxin (12/18/17:19) Furosemide Inj (Lasix Inj) (12/18/17 00:30) Lactic Acid (12/18/17 00:19) Metoclopramide Inj (Reglan Inj) (12/18/17 00:30) Arterial Blood Gas (Abg) (12/18/17 ) Nitroglycerin 2% Oint (Nitroglycerin 2% (12/18/17 00:30) Chest, Single Ap (12/18/17 00:49) Prochlorperazine Inj (Compazine Inj) (12/18/17 01:00) Etomidate Inj (Amidate Inj) (12/18/17 01:15) Succinylcholine Inj (Quelicin Inj) (12/18/17 01:15) Restraints Non-Violent SARIAH.Q3H (12/18/17 01:12) ^ Medication Admin Instruction (12/18/17 01:12) Notify Dr: Other (12/18/17 01:12) Potassium Chlor 40 Meq Premix (Kcl 40 Me (12/18/17 01:15) Potassium Chlor 20 Meq Premix (Kcl 20 Me (12/18/17 01:15) Potassium Chloride Eff (K-Lyte Cl Eff) (12/18/17 01:15) Potassium Chlor 40 Meq Premix (Kcl 40 Me (12/18/17 01:15) Potassium Chlor 20 Meq Premix (Kcl 20 Me (12/18/17 01:15) Magnesium Sulfate Inj (Magnesium Sulfate (12/18/17 01:15) Magnesium Oxide (Mag-Ox) (12/18/17 01:15) Magnesium Sulfate Inj (Magnesium Sulfate (12/18/17 01:15) Potassium Phosphate (K-Phos) (12/18/17 01:15) Sodium Phosphate Inj (Sodium Phosphate I (12/18/17 01:15) Potassium Phosphate (K-Phos) (12/18/17 01:15) Potassium Phosphate Inj (Potassium Phosp (12/18/17 01:15) Chlorhexidine 0.12% Liq (Peridex 0.12% L (12/18/17 08:00) Resp Ventilation- Volume (12/18/17 ) Ventilator Weaning Readiness SARIAH.DAILY@0800 (12/18/17 01:12) Elevate Head Of Bed (12/18/17 01:12) Inpatient Certification (12/18/17 01:12) Bedside Glucose SARIAH.Q6H (12/18/17 01:12) Blood Glucose Goal (Criteria) (12/18/17 01:12) Hypoglycemia 51 - 69 Mg/Dl (12/18/17 01:12) Hypoglycemia 50 Mg/Dl Or < (12/18/17 01:12) Notify Dr: Other (12/18/17 01:12) Dextrose 50% In Bibi (Vial) Inj (D50w (Vi (12/18/17 01:15) Insulin Human Reg Supp Scale (Novolin R (12/18/17 06:00) Dietary (Dietitian) Consult (12/18/17 01:12) Tube Feeding 08,20 (12/18/17 01:12) Neuro Checks SARIAH.Q1H (12/18/17 01:12) Albuterol-Ipratropium Neb (Duoneb Neb) (12/18/17 04:00) Albuterol-Ipratropium Neb (Duoneb Neb) (12/18/17 01:15) Tube Feeding 08,20 (12/18/17 01:12) Troponin I (12/18/17 07:00) Troponin I (12/18/17 13:00) Troponin I (12/18/17 19:00) Creatine Kinase (Cpk) (12/18/17 07:00) Creatine Kinase (Cpk) (12/18/17 13:00) Creatine Kinase (Cpk) (12/18/17 19:00) Ckmb (Isoenzyme) Profile (12/18/17 07:00) Ckmb (Isoenzyme) Profile (12/18/17 13:00) Ckmb (Isoenzyme) Profile (12/18/17 19:00) Cbc No Diff, Includes Plts (12/19/17 05:00) Cbc No Diff, Includes Plts (12/20/17 05:00) Cbc No Diff, Includes Plts (12/21/17 05:00) Cbc No Diff, Includes Plts (12/22/17 05:00) Cbc No Diff, Includes Plts (12/23/17 05:00) Cbc No Diff, Includes Plts (12/24/17 05:00) Cbc No Diff, Includes Plts (12/25/17 05:00) Chest, Single Ap (12/18/17 ) Propofol 1000 Mg/100 Ml Inj (Diprivan 10 (12/18/17 01:45) Admit Order (Ed Use Only) (12/18/17 ) Maintenance Worker Swimming Pool / Telemetry SARIAH.Q8H (12/18/17 01:51) Diet Npo (12/18/17 Breakfast) Activity Bed Rest (12/18/17 01:51) Notify Dr: Other (12/18/17 01:51) Consult Cardiology (12/18/17 ) Labs Laboratory Tests Test 12/18/17 00:30 12/18/17 00:33 White Blood Count 8.6 TH/MM3 Red Blood Count 4.39 MIL/MM3 Hemoglobin 14.7 GM/DL Hematocrit 43.5 % Mean Corpuscular Volume 98.9 FL Mean Corpuscular Hemoglobin 33.5 PG Mean Corpuscular Hemoglobin Concent 33.9 % Red Cell Distribution Width 15.9 % Platelet Count 169 TH/MM3 Mean Platelet Volume 9.0 FL Neutrophils (%) (Auto) 34.6 % Lymphocytes (%) (Auto) 41.6 % Monocytes (%) (Auto) 14.1 % Eosinophils (%) (Auto) 9.3 % Basophils (%) (Auto) 0.4 % Neutrophils # (Auto) 3.0 TH/MM3 Lymphocytes # (Auto) 3.6 TH/MM3 Monocytes # (Auto) 1.2 TH/MM3 Eosinophils # (Auto) 0.8 TH/MM3 Basophils # (Auto) 0.0 TH/MM3 CBC Comment DIFF FINAL Differential Comment Prothrombin Time 13.1 SEC Prothromb Time International Ratio 1.3 RATIO Activated Partial Thromboplast Time 33.9 SEC Blood Urea Nitrogen 30 MG/DL Creatinine 2.16 MG/DL Random Glucose 199 MG/DL Total Protein 7.7 GM/DL Albumin 2.6 GM/DL Calcium Level 8.2 MG/DL Magnesium Level 2.2 MG/DL Alkaline Phosphatase 336 U/L Aspartate Amino Transf (AST/SGOT) 94 U/L Alanine Aminotransferase (ALT/SGPT) 63 U/L Total Bilirubin 0.7 MG/DL Sodium Level 140 MEQ/L Potassium Level 5.1 MEQ/L Chloride Level 103 MEQ/L Carbon Dioxide Level 26.8 MEQ/L Anion Gap 10 MEQ/L Estimat Glomerular Filtration Rate 30 ML/MIN Lactic Acid Level 3.5 mmol/L Total Creatine Kinase 49 U/L Troponin I 0.07 NG/ML B-Type Natriuretic Peptide 1159 PG/ML Digoxin Level 1.1 NG/ML Blood Gas Puncture Site LT RADIAL Blood Gas Patient Temperature 98.6 Blood Gas HCO3 23 mmol/L Blood Gas Base Excess -2.4 mmol/L Blood Gas Oxygen Saturation 98 % Arterial Blood pH 7.31 Arterial Blood Partial Pressure CO2 47 mmHg Arterial Blood Partial Pressure O2 248 mmHG Arterial Blood Oxygen Content 20.8 Vol % Arterial Blood Carboxyhemoglobin 0.8 % Arterial Blood Methemoglobin 0.4 % Blood Gas Hemoglobin 14.6 G/DL Oxygen Delivery Device BIPAP Blood Gas Ventilator Setting IPAP10/EPAP 5 Blood Gas Inspired Oxygen 100 % MDM Medical Decision Making Medical Screen Exam Complete: Yes Emergency Medical Condition: Yes Medical Record Reviewed: Yes Interpretation(s) CBC & BMP Diagram 12/18/17 00:30 Total Protein 7.7, Albumin 2.6 L, Calcium Level 8.2 L, Magnesium Level 2.2, Alkaline Phosphatase 336 H, Aspartate Amino Transf (AST/SGOT) 94 H, Alanine Aminotransferase (ALT/SGPT) 63, Total Bilirubin 0.7 Vital Signs Date Time Temp Pulse Resp B/P (MAP) Pulse Ox O2 Delivery O2 Flow Rate FiO2 12/18/17 01:50 60 16 110/64 (79) 97 Ventilator 12/18/17 01:45 40 12/18/17 01:40 60 16 104/60 (75) 98 Ventilator 40 12/18/17 01:30 60 16 98/52 (67) 98 Ventilator 40 12/18/17 01:20 60 16 87/53 (64) 98 Ventilator 40 12/18/17 01:15 40 12/18/17 01:15 64 16 81/55 (64) 96 12/18/17 01:15 99 40 12/18/17 00:57 100 Nasal Cannula 4.00 12/18/17 00:35 100 BiPAP 100 12/18/17 00:35 75 40 100 BiPAP 100 12/18/17 00:35 87 40 141/88 (105) 100 BiPAP 100 12/18/17 00:34 99 Nasal Cannula 3.00 12/18/17 00:20 100 100 12/18/17 00:20 99.8 76 16 141/88 (105) 98 Troponin I 0.07, elevated; BNP 1156, elevated; CK: 336, elevated Lactic acid: 3.5, elevated; acute renal insufficiency bicarb and anion gap in normal range Last Impressions Chest X-Ray 12/18/17 0049 Signed Impressions: CONCLUSION: Mild pulmonary edema. Chest X-Ray 12/18/17 0000 Signed Impressions: CONCLUSION: Placement of ET tube and otherwise not changed. Differential Diagnosis Respiratory failure respiratory distress, CHF, AL, COPD, arrhythmia Narrative Course 72-year-old male presents in acute respiratory distress placed on BiPAP with DuoNeb updraft with continued work of breathing and diaphoresis EKG atrial fibrillation with rate of 90 with left bundle branch block and intermittent atrial/ventricular paced rhythm. Patient placed on retail assistant manager with continuous pulse oximetry patient administered DuoNeb updraft placed on BiPAP as well as administered Lasix 40 mg IV; patient subsequently administered Nitropaste 1 inch to chest wall and chest x-ray ordered Patient continuing to show no improvement after returning patient to BiPAP showing evidence of fatigue therefore decision made to intubate the patient for impending respiratory failure with poor ventilatory effort. Concerned that patient experiencing acute AL precipitating congestive heart failure and acute respiratory failure. Patient intubated with 8.0 endotracheal tube propofol ordered and Nitropaste discontinued as blood pressure decreased to 85 mmHg systolic Patient showing some evidence of improvement on BiPAP but subsequently had episode of emesis therefore BiPAP discontinued and patient placed on nasal cannula administered Reglan 10 mg IV discussed with Dr Moraes --has reviewed EKG and prior EKG's --recommends q3h trops and consult to him add heparin and aspirin unless contraindication discussed with bellstand attendant --will admit to his service. Pomologist started patient on the recommended heparin and also started patient on Levophed for pressure support Critical Care Narrative Aggregate critical care time was 35 minutes. Time to perform other separately billable procedures was not included in the critical care time. My time did not include minutes spent treating any other patients simultaneously or on activities that did not directly contribute to the patient's treatment. The services I provided to this patient were to treat and/or prevent clinically significant deterioration that could result in: Respiratory arrest cardiac arrest I provided critical care services requiring my management, as noted below: Chart data review, documentation time, medication orders and management, vital sign assessments/reviewing monitor data, ordering and reviewing lab tests, ordering and interpreting/reviewing x-rays and diagnostic studies, care of the patient and discussion of the patient with the admitting physicians. Procedures Procedure Narrative After the risks and benefits were discussed the following procedure was performed: INTUBATION: The patient was put in optimal position for the procedure. Rapid sequence intubation was initiated by me using 20 milligrams of etomidate IV and 70 milligrams of succinylcholine IV. The patient was intubated with a 8.0 cuffed endotracheal tube. Tube placement was confirmed by visualization of the tube and balloon passing through the cords, capnometry and subsequent chest x- ray. Breath sounds were equal and well aerated bilaterally postintubation. No breath sounds over stomach. Patient tolerated procedure well. Physician Communication Physician Communication discussed with Dr Moraes and Dr Leavitt Diagnosis Primary Impression: Acute respiratory failure Qualified Codes: J96.01 - Acute respiratory failure with hypoxia Additional Impressions: Acute on chronic systolic CHF (congestive heart failure) ACS (acute coronary syndrome) Myocardial infarction Acute kidney injury Admitting Information Admitting Physician Requests: Admit Kavita Busch MD December 18, 2017 02:02
[2017-12-18] MEDS ORDERED: MIDAZOLAM HCL 5 MG/ML VIAL (1 ML) ONE (02:14)
[2017-12-18] MEDS ORDERED: MIDAZOLAM HCL 2 MG/2 ML VIAL IV PUSH ONE (02:15)
--- NOTE | 2017-12-18 02:18 | RADRPT ---
EXAM DATE: 12/18/2017 2:05 AM EDT AGE/SEX: 72 years / Male INDICATIONS: Shortness of breath. CLINICAL DATA: This is the patient's initial encounter. Patient reports that signs and symptoms have been present for 1 day and indicates a pain score of 0/10. MEDICAL/SURGICAL HISTORY: Non-responsive. Pacemaker. COMPARISON: [facility] – [place], [place], CHEST SINGLE AP, 10/31/2017. . FINDINGS: Left subclavian pacer wires are present with tips in the right atrium and right ventricle. There is m ild perivascular pulmonary edema. Heart and mediastinum are unremarkable. CONCLUSION: Mild pulmonary edema. Electronically signed by: Radha Tinoco MD 12/18/2017 2:17 AM EDT
[2017-12-18] MEDS ORDERED: NOREPINEPHRINE 4 MG/4 ML AMP ONE (02:28)
[2017-12-18] MEDS ORDERED: TERBUTALINE INJ 1 MG/ML AMP SQ PRN ×3 (02:30→04:15)
[2017-12-18] MEDS: NOREPINEPHRINE INJ 4 MG in SODIUM CHLOR 0.9% 250 ML INJ 246 ML IV PRN ×2 (02:42→21:18)
[2017-12-18] MEDS: RESP: ALBUTEROL 2.5 MG/IPRATROPIUM 0.5 MG NEB (SCH) INH ×4 (02:57→20:55)
[2017-12-18 03:09] LABS: BILIRUBIN, URINE NEG (NEG); BLOOD, URINE NEG (NEG); GLUCOSE,URINE NEG (NEG); HYALINE CAST, URINE 11 /lpf (RARE); KETONE, URINE NEG (NEG); MUCUS URINE FEW /lpf (OCC); NITRITE,URINE NEG (NEG); PH, URINE 5.5 (5.0-8.5); SQUAMOUS EPITHELIAL CELL URINE <1 /hpf (0-5); TRANSITIONAL EPI CELLS, URINE <1 /hpf; URINE COLOR YELLOW (YELLW/STRAW); URINE LEUKOCYTE ESTERASE NEG (NEG)
[2017-12-18] MEDS ORDERED: ASPIRIN 300 MG SUPP RECTAL ONE (03:15)
[2017-12-18] MEDS: NOREPINEPHRINE-DEXTROSE DRIP 250 ML IV PRN ×3 (03:59→14:39)
--- NOTE | 2017-12-18 04:10 | PD.PROCEDR ---
Procedure Note Procedure Procedure: Arterial Line Placement Right radial arterial line Diagnosis: Cardiogenic shock Indications: Need for beat to beat hemogenic monitoring Consent: Emergent Description of the Procedure: The right wrist was prepped and draped sterilely. 1% lidocaine was used for local anesthesia. The pulse was located and a needle was advanced into the artery. A 20 gauge, 12 cm catheter was advanced into the artery using a modified Seldinger technique. The catheter was sutured to the skin and a sterile dressing was applied. The catheter was connected to a pressure transducer and an arterial waveform was noted. There were no immediate complications noted. There was minimal EBL. I personally performed the procedure. Rivas Leavitt MD December 18, 2017 04:10
--- NOTE | 2017-12-18 04:10 | HHI.HP ---
HPI Service Critical Care Medicine Primary Care Physician Unknown Admission Diagnosis acute resp failure; chf; NV; h/o copd Diagnosis: Chief Complaint: shortness of breath Travel History International Travel<30 Days: No Contact w/Intl Traveler <30 Da: No Traveled to Known Affected Are: No History of Present Illness This is a 72-year-old male with a history of ischemic cardiomyopathy and reported EF of 30% EMS for acute shortness of breath 1 day. He was acutely hypoxic in the emergency department. Initially placed on BiPAP but started vomiting into the BiPAP mask and so was emergently intubated. Chest x-ray suggestive of volume overload and pulmonary edema. Troponin elevated at 0.07. BNP elevated at 1100. Creatinine elevated 2.16. When I evaluated the patient he was intubated and sedated. No additional information is available from the patient. ROS unobtainable. Post intubation, he was hypotensive. I emergently placed arterial and central lines. Started norepinephrine. Performed bedside critical care ultrasound which demonstrates severe global left ventricular dysfunction with an EF much less than 20% at this point. Severe RV dysfunction and dilation as well. IVC dilated at greater than 2-1/2 cm without any respiratory variation. Spontaneous echo contrast seen in the IVC and right atrium. No pericardial effusion. I give 100 mg of IV Lasix and started milrinone infusion. Lactate is elevated at 3.5. Review of Systems ROS Limitations: Clinical Condition, Intubated, Altered Mental Status Past Family Social History Allergies: Coded Allergies: hydrocodone (Verified Allergy, Intermediate, Causes Itching, 12/18/17) Past Medical History Patient has a history of taking Xarelto Ischemic cardiomyopathy and EF of 30% Diabetes COPD Hypertension Dyslipidemia Prior [place] Asthma Anxiety Depression Bilateral hearing aids Gout Left shoulder arthritis Past Surgical History Prior cardiac stents 2002 [facility] AICD placed in 2013 or 2014 (prior documentation unclear) Shrapnel removed from left lower quadrant in 1960s Tonsillectomy Reported Medications Percocet (Oxycodone-Acetaminophen) 5-325 mg Tab 1 Tab PO Q6H 14 Days Novolin 70-30 Inj (Insulin Human Isoph/Insulin Regular) 1,000 Unit/10 Ml Vial 15 Units SQ BID Levitra (Vardenafil) 20 Mg Tab 20 Mg PO DAILY PRN Aspirin Adult Low Strength (Aspirin) 81 Mg Tabdr 81 Mg PO DAILY Divalproex DR (Divalproex Sodium) 500 Mg Tabdr 1,000 Mg PO HS Pacerone (Amiodarone HCl) 100 Mg Tab 100 Mg PO DAILY Entresto (Sacubitril-Valsartan) 24-26 Mg Tab 1 Tab PO BID Multiple Vitamin 1 Tab 1 Tab PO DAILY Vitamin D3 (Cholecalciferol) 2,000 Unit Cap 2,000 Units PO DAILY Striverdi Respimat Inh (Olodaterol Inh) 2.5 Mcg/Act Aer 2 Puff INH DIRECTED Furosemide 20 Mg Tab 60 Mg PO DAILY Carvedilol 12.5 Mg Tab 12.5 Mg PO BID Xarelto (Rivaroxaban) 15 Mg Tab 15 Mg PO DAILY Novolin R Inj (Insulin Human Regular) 1,000 Unit/10 Ml Vial 5 Units SQ ACHS Digoxin 0.125 Mg Tab 0.125 Mg PO DAILY Atorvastatin (Atorvastatin Calcium) 20 Mg Tab 20 Mg PO HS Allopurinol 100 Mg Tab 100 Mg PO DAILY Active Ordered Medications See MAR Family History Reviewed and found to be noncontributory to his acute illness Social History Former smoker, quit 1987. Rare EtOH use. Denies drugs abuse. Physical Exam Vital Signs Vital Signs Date Time Temp Pulse Resp B/P (MAP) Pulse Ox O2 Delivery O2 Flow Rate FiO2 12/18/17 03:21 99.3 60 21 97/63 (74) 98 12/18/17 02:56 63 15 101/64 (76) 100 Ventilator 12/18/17 02:50 100 100 12/18/17 02:46 64 15 84/50 (61) 100 Ventilator 40 12/18/17 02:43 60 15 77/50 (59) 90 Ventilator 12/18/17 02:42 60 75/49 12/18/17 02:15 60 15 107/71 (83) 98 Ventilator 40 12/18/17 01:50 60 16 110/64 (79) 97 Ventilator 12/18/17 01:45 40 12/18/17 01:40 60 16 104/60 (75) 98 Ventilator 40 12/18/17 01:30 60 16 98/52 (67) 98 Ventilator 40 12/18/17 01:20 60 16 87/53 (64) 98 Ventilator 40 12/18/17 01:15 40 12/18/17 01:15 64 16 81/55 (64) 96 12/18/17 01:15 99 40 12/18/17 00:57 100 Nasal Cannula 4.00 12/18/17 00:35 100 BiPAP 100 12/18/17 00:35 75 40 100 BiPAP 100 12/18/17 00:35 87 40 141/88 (105) 100 BiPAP 100 12/18/17 00:34 99 Nasal Cannula 3.00 12/18/17 00:20 100 100 12/18/17 00:20 99.8 76 16 141/88 (105) 98 Physical Exam GENERAL: Frail elderly male, lying in bed, intubated, sedated, critically ill HEENT: Normocephalic. Atraumatic. Pupils equal, round, reactive, conjugate. Mucous membranes are moist NECK: Trachea is midline. Positive JVD up above the level of the mandible CHEST: Equal chest rise. PRVC. 100% FiO2. PEEP of 10. CARDIOVASCULAR: Normal rate, irregularly irregular rhythm. A. fib by telemetry. Hypotensive with systolics in the 70. ABDOMEN: Soft, nontender, nondistended. No guarding. MUSCULOSKELETAL: Pulses 1+. No peripheral edema. Extremities are cool and poorly perfused NEUROLOGICAL: RASS -4. Very recently intubated and sedated. Does not follow commands. Moves all extremities spontaneously. Laboratory Laboratory Tests Test 12/18/17 00:30 12/18/17 00:33 12/18/17 02:05 White Blood Count 8.6 Red Blood Count 4.39 Hemoglobin 14.7 Hematocrit 43.5 Mean Corpuscular Volume 98.9 Mean Corpuscular Hemoglobin 33.5 Mean Corpuscular Hemoglobin Concent 33.9 Red Cell Distribution Width 15.9 Platelet Count 169 Mean Platelet Volume 9.0 Neutrophils (%) (Auto) 34.6 Lymphocytes (%) (Auto) 41.6 Monocytes (%) (Auto) 14.1 Eosinophils (%) (Auto) 9.3 Basophils (%) (Auto) 0.4 Neutrophils # (Auto) 3.0 Lymphocytes # (Auto) 3.6 Monocytes # (Auto) 1.2 Eosinophils # (Auto) 0.8 Basophils # (Auto) 0.0 CBC Comment DIFF FINAL Differential Comment Prothrombin Time 13.1 Prothromb Time International Ratio 1.3 Activated Partial Thromboplast Time 33.9 Blood Urea Nitrogen 30 Creatinine 2.16 Random Glucose 199 Total Protein 7.7 Albumin 2.6 Calcium Level 8.2 Magnesium Level 2.2 Alkaline Phosphatase 336 Aspartate Amino Transf (AST/SGOT) 94 Alanine Aminotransferase (ALT/SGPT) 63 Total Bilirubin 0.7 Sodium Level 140 Potassium Level 5.1 Chloride Level 103 Carbon Dioxide Level 26.8 Anion Gap 10 Estimat Glomerular Filtration Rate 30 Lactic Acid Level 3.5 Total Creatine Kinase 49 Troponin I 0.07 B-Type Natriuretic Peptide 1159 Digoxin Level 1.1 Blood Gas Puncture Site LT RADIAL Blood Gas Patient Temperature 98.6 Blood Gas HCO3 23 Blood Gas Base Excess -2.4 Blood Gas Oxygen Saturation 98 Arterial Blood pH 7.31 Arterial Blood Partial Pressure CO2 47 Arterial Blood Partial Pressure O2 248 Arterial Blood Oxygen Content 20.8 Arterial Blood Carboxyhemoglobin 0.8 Arterial Blood Methemoglobin 0.4 Blood Gas Hemoglobin 14.6 Oxygen Delivery Device BIPAP Blood Gas Ventilator Setting IPAP10/EPAP 5 Blood Gas Inspired Oxygen 100 Urine Color YELLOW Urine Turbidity HAZY Urine pH 5.5 Urine Specific Helen 1.021 Urine Protein 30 Urine Glucose (UA) NEG Urine Ketones NEG Urine Occult Blood NEG Urine Nitrite NEG Urine Bilirubin NEG Urine Urobilinogen 2.0 Urine Leukocyte Esterase NEG Urine RBC 10 Urine WBC 4 Urine Squamous Epithelial Cells <1 Urine Transitional Epithelial Cells <1 Urine Hyaline Casts 11 Urine Mucus FEW Microscopic Urinalysis Comment CULT NOT INDICATED Date/Time Source Procedure Growth Status 12/18/17 00:35 Blood Peripheral Aerobic Blood Culture Pending Received 12/18/17 00:35 Blood Peripheral Anaerobic Blood Culture Pending Received Result Diagram: 12/18/17 0030 12/18/17 0030 Imaging Last Impressions Chest X-Ray 12/18/17 0049 Signed Impressions: CONCLUSION: Mild pulmonary edema. Caprini VTE Risk Assessment Caprini VTE Risk Assessment: Mod/High Risk (score >= 2) Caprini Risk Assessment Model Point Value = 1 Point Value = 2 Point Value = 3 Point Value = 5 Age 41-60 Minor surgery BMI > 25 kg/m2 Swollen legs Varicose veins or History of unexplained or recurrent spontaneous Oral contraceptives or hormone replacement Sepsis (< 1 month) Serious lung disease, including pneumonia (< 1 month) Abnormal pulmonary function Acute myocardial infarction Congestive heart failure (< 1 month) History of inflammatory bowel disease Medical patient at bed rest Age 61-74 Arthroscopic surgery Major open surgery (> 45 min) Laparoscopic surgery (> 45 min) Malignancy Confined to bed (> 72 hours) Immobilizing plaster cast Central venous access Age >= 75 History of VTE Family history of VTE Factor V Leiden Prothrombin [id number] Lupus anticoagulant Anticardiolipin antibodies Elevated serum homocysteine Heparin-induced thrombocytopenia Other congenital or acquired thrombophilia Stroke (< 1 month) Elective arthroplasty Hip, pelvis, or leg fracture Acute spinal cord injury (< 1 month) Prophylaxis Regimen Total Risk Factor Score Risk Level Prophylaxis Regimen 0-1 Low Early ambulation 2 Moderate Order ONE of the following: *Sequential Compression Device (SCD) *Heparin 5000 units SQ BID 3-4 Higher Order ONE of the following medications: *Heparin 5000 units SQ TID *Enoxaparin/Lovenox 40 mg SQ daily (WT < 150 kg, CrCl > 30 mL/min) *Enoxaparin/Lovenox 30 mg SQ daily (WT < 150 kg, CrCl > 10-29 mL/min) *Enoxaparin/Lovenox 30 mg SQ BID (WT < 150 kg, CrCl > 30 mL/min) AND/OR *Sequential Compression Device (SCD) 5 or more Highest Order ONE of the following medications: *Heparin 5000 units SQ TID (Preferred with Epidurals) *Enoxaparin/Lovenox 40 mg SQ daily (WT < 150 kg, CrCl > 30 mL/min) *Enoxaparin/Lovenox 30 mg SQ daily (WT < 150 kg, CrCl > 10-29 mL/min) *Enoxaparin/Lovenox 30 mg SQ BID (WT < 150 kg, CrCl > 30 mL/min) AND *Sequential Compression Device (SCD) Assessment and Plan Assessment and Plan Assessment: 72-year-old male with ischemic cardiomyopathy who presents with acute hypoxic respiratory failure most likely secondary to acute congestive heart failure exacerbation, systolic type. Is unclear to me if this is secondary to a primary ischemic event or whether his troponin elevation is secondary to type II demand ischemia. Will start heparinization and aspirin therapy and trend his troponins. He is very clearly in cardiogenic shock and will need inotropic therapy. We will start milrinone and norepinephrine. Forced diuresis. Very critically ill, and given age and multiple medical comorbidities, this could be a fatal acute hospitalization for him. Plan by systems: Neurologic: Acute metabolic encephalopathy Frequent neurochecks Propofol for goal RASS -2 Avoid long-acting sedatives Respiratory: Acute hypoxic respiratory failure Acute pulmonary edema Wean FiO2 for goal SPO2 greater than 90% Nebs Head of bed elevated Keep PEEP elevated at 10 Vent bundle No SBT today given cardiogenic shock Trend ABG Cardiovascular: Acute pulmonary edema Ischemic cardiomyopathy with a reported EF of 30% Cardiogenic shock Acute non-ST elevation myocardial infarction: Unclear if type I versus type II Acute severe systolic congestive heart failure exacerbation Trend troponins Start milrinone at 0.375 mcg/kg/min Norepinephrine for goal map greater than 65 Trend CVP Forced diuresis Trend lactates Cardiology consult: Dr. Moraes Aspirin Heparin drip Renal: Acute Kidney Injury Place Laura -- Strict I/Os Lasix 100 mg IV 1 Trend on daily BMP FEN/GI: Acute protein calorie malnutrition-moderate Acute intravascular volume overload N.p.o. Place orogastric tube ICU electrolyte protocol Daily BMP Heme/ID: Heparin drip No infectious etiology suspected this time Daily CBC Endocrine: Hyperglycemia of critical illness -- SSI Prophylaxis: GI Prophylaxis Pepcid DVT Prophylaxis -- SCDs Heparin drip Lines: 12/18 right radial arterial line 12/18 right subclavian triple-lumen catheter 12/18 Laura Dispo: Admit to ICU. Very critically ill. This patient remains critically ill with one or more organ systems which are or may become a threat to life. I have spent in excess of 63 minutes discontinuously in the care and management of this patient. This time is exclusive of procedures, and includes, but is not limited to, evaluation of the patient, review of the medical record, discussions with family, consultants, nursing staff, or respiratory therapy, and documentation in the medical record. Rivas Leavitt MD December 18, 2017 04:10
--- NOTE | 2017-12-18 04:11 | PD.PROCEDR ---
Procedure Note Procedure Central Line Procedure Note Right subclavian 7 Upper Sorbian 20 cm triple-lumen catheter Diagnosis: Cardiogenic shock Indications: Need for highly potent vasoactive substances Consent: Emergent Anesthesia: Propofol IV Description of the Procedure: The patient was placed in the supine, mild- Trendelenburg position. The area was prepped and draped sterilely. A 19g needle was inserted under negative pressure aspiration and dark venous blood was obtained. A guidewire was inserted easily without resistance. A small incision was made using a #11 blade. Using a modified Seldinger technique, the dilator and 7 Upper Sorbian, 20 cm catheter were advanced over the guidewire without resistance. All ports were aspirated and flushed, and had brisk blood return. The line was secured at 20 cm at the skin using non-suture StatLock device. A Biopatch and Transparent sterile dressing were applied. There were no immediate complications noted. There was minimal EBL. The patient tolerated the procedure well. Ultrasound guidance was not used for this procedure A Chest x-ray has been ordered. I personally performed the procedure. Rivas Leavitt MD December 18, 2017 04:11
[2017-12-18] MEDS: HEPARIN-D5W 25,000 U/250 ML 250 ML IV PRN (04:14)
[2017-12-18] MEDS: DOPamine 800 MG/500 ML INJ 500 ML IV PRN (04:35)
[2017-12-18] MEDS: MILRINONE INJ 20 MG in SODIUM CHLORIDE 0.9% INJ 80 ML IV SCH ×3 (04:36→23:29)
[2017-12-18 05:19] LABS: TROPONIN I 0.28 NG/ML (0.02-0.05)
[2017-12-18] MEDS: INSULIN NovoLIN REGULAR SUPPLEMENTAL SCALE SQ SCH ×2 (05:27→12:00)
--- NOTE | 2017-12-18 06:53 | RADRPT ---
EXAM DATE: 12/18/2017 5:57 AM EDT AGE/SEX: 72 years / Male INDICATIONS: Right subclavian central line placement. CLINICAL DATA: This is the patient's subsequent encounter. Patient reports that signs and symptoms h ave been present for 1 day and indicates a pain score of Nonresponsive. MEDICAL/SURGICAL HISTORY: Non-responsive. Pacemaker. COMPARISON: [facility], CHEST SINGLE AP, 12/18/2017. . FINDINGS: NG tube has been placed with tip not visualized probably in the stomach. Right subclavian line is pre sent with tip overlapping the SVC. There is perivascular pulmonary edema not significantly changed. T here is no pneumothorax. CONCLUSION: No appreciable change in probable pulmonary edema. Electronically signed by: Radha Tinoco MD 12/18/2017 6:51 AM EDT
[2017-12-18] MEDS: CHLORHEXIDINE 0.12% (ORAL KIT) 15 ML CUP MT SCH ×2 (08:35→20:38)
[2017-12-18] MEDS: ASPIRIN 325 MG TAB PO SCH (08:35)
[2017-12-18 11:40] LABS: BICARBONATE 22.3 MEQ/L (21.0-32.0); CALCIUM 8.2 MG/DL (8.5-10.1); CREATININE 2.45 MG/DL (0.60-1.30); MAGNESIUM 2.2 MG/DL (1.5-2.5); TROPONIN I 0.29 NG/ML (0.02-0.05)
--- NOTE | 2017-12-18 11:53 | PD.CONS ---
Consult Service Palliative Care . Consult Requested By Dr. Leavitt . Primary Care Physician Unknown . Reason for Consultation a. To assist with evaluation and management of symptoms including: dyspnea, pain b. To assist medical decision maker(s) with: better understanding of current medical conditions; weighing benefits/burdens of medical treatment options; making medical treatment decisions. . HPI History of Present Illness Mr. Lerma is a 72-year-old gentleman who presented to [facility] ED on with a 1 day history of progressively worsening shortness of breath. When the EMS arrived, the patient was found to have diminished breath sounds and some wheezing in the upper lung wilson. Symptoms did not improve status post DuoNeb and albuterol. Patient was hypoxic in the ED. He was initially placed on BiPAP but started to vomit and was emergently intubated. Additional diagnostic data: * Vital signs: Pulse 76, respiration 16, BP 141/88, oxygen saturation 99% on 3 L via nasal cannula, oral temperature 99.8 * WBC: 8.6, hemoglobin 14.7, hematocrit 43.5, platelets 169, neutrophils 34.6% * Sodium: 140, potassium 4 5.1, chloride 103, carbon dioxide 23.8, random glucose 199, calcium 8.2, magnesium 2.2 * BUN: 30, creatinine 2.16, GFR 30 * Total bilirubin: 0.7, AST 94, ALT 63, alkaline phosphatase 336 * Total creatine kinase: 49 * Troponin: 0.07 * BNP: 1159 * Total protein: 7.7, albumin 2.6 * PT: 13.1, INR 1.3, APTT 33.9 * Urinalysis-normal * Blood cultures-pending * Sputum cultures-pending * Chest x-ray showed mild pulmonary edema. Post intubation, the patient became hypotensive. Arterial and central lines were placed and the patient was started on norepinephrine. Bedside ultrasound demonstrated high global left ventricular dysfunction with an EF much less than 20%Severe RV dysfunction and dilatation as well. IVC was dilated >2.5 cm without any respiratory variation. Spontaneous echo contrast seen in the IVC and right atrium. No pericardial effusion. Patient was administered 100 mg of IV Lasix and milrinone known infusion was started. Heparinization and aspirin therapy were initiated, will trend troponins. Lactate elevated at 3.5. Cardiology was consulted. Patient is critically ill. Given his age and multiple comorbid conditions, it is possible that the patient may not survive this hospitalization. Palliative Care was consulted to assist with symptom management and to discuss with the family the benefits and burdens of his current illnesses and the options regarding future care. Patient was [place] in [facility] [facility]. No family members were present. Patient remains intubated and sedated on propofol. On Levophed, dopamine, milrinone and heparin drip. . Function/Cognitive Trajectory Per patient's , patient has multiple comorbid conditions with significant heart/lung disease. Patient uses supplemental oxygen at night. Brandy Calero ( ) states the patient has been hospitalized 2 times since August,; she describes an acute decline in the past year stating the patient becomes short of breath with minimal exertion and is always fatigued. Patient's appetite is poor and he often skips meals or eats only a few bites. She thinks the patient has had significant weight loss but does not know how much. . Review of Systems ROS Limitations: Clinical Condition, Intubated, Altered Mental Status, Other ( ROS obtained from review of medical records and spouse report) Constitutional: COMPLAINS OF: Fatigue, Change in appetite (Decreased ), Generalized weakness Respiratory: COMPLAINS OF: Shortness of breath Cardiovascular: COMPLAINS OF: Dyspnea on Exertion Psychiatric: COMPLAINS OF: Depression Past Family Social History Coded Allergies: hydrocodone (Verified Allergy, Intermediate, Causes Itching, 12/18/17) Past Medical History Patient has a history of taking Xarelto Ischemic cardiomyopathy and EF of 30% Diabetes COPD Hypertension Dyslipidemia Prior MD Asthma Anxiety Depression Bilateral hearing aids Gout Left shoulder arthritis . Past Surgical History PCI with stent placement Pacemaker/AICD placement in 2014 Tonsillectomy and adenoidectomy Right greater toe surgery. Cataract surgery . Reported Medications Percocet (Oxycodone-Acetaminophen) 5-325 mg Tab 1 Tab PO Q6H 14 Days Novolin 70-30 Inj (Insulin Human Isoph/Insulin Regular) 1,000 Unit/10 Ml Vial 15 Units SQ BID Levitra (Vardenafil) 20 Mg Tab 20 Mg PO DAILY PRN Aspirin Adult Low Strength (Aspirin) 81 Mg Tabdr 81 Mg PO DAILY Divalproex DR (Divalproex Sodium) 500 Mg Tabdr 1,000 Mg PO HS Pacerone (Amiodarone HCl) 100 Mg Tab 100 Mg PO DAILY Entresto (Sacubitril-Valsartan) 24-26 Mg Tab 1 Tab PO BID Multiple Vitamin 1 Tab 1 Tab PO DAILY Vitamin D3 (Cholecalciferol) 2,000 Unit Cap 2,000 Units PO DAILY Striverdi Respimat Inh (Olodaterol Inh) 2.5 Mcg/Act Aer 2 Puff INH DIRECTED Furosemide 20 Mg Tab 60 Mg PO DAILY Carvedilol 12.5 Mg Tab 12.5 Mg PO BID Xarelto (Rivaroxaban) 15 Mg Tab 15 Mg PO DAILY Novolin R Inj (Insulin Human Regular) 1,000 Unit/10 Ml Vial 5 Units SQ ACHS Digoxin 0.125 Mg Tab 0.125 Mg PO DAILY Atorvastatin (Atorvastatin Calcium) 20 Mg Tab 20 Mg PO HS Allopurinol 100 Mg Tab 100 Mg PO DAILY . Current Medications Medications (Trade) Dose Ordered Sig/Kathryn Route Start Time Stop Time Status Last Admin (NS Flush) 2 ml UNSCH PRN IVF 12/18/17 00:30 Potassium Chloride 100 ml @ 50 mls/hr Q2H PRN IV 12/18/17 01:15 Potassium Chloride 100 ml @ 50 mls/hr Q2H PRN IV 12/18/17 01:15 (K-Lyte Cl Eff) 50 meq UNSCH PRN PO 12/18/17 01:15 Potassium Chloride 100 ml @ 25 mls/hr UNSCH PRN IV 12/18/17 01:15 Potassium Chloride 100 ml @ 50 mls/hr Q2H PRN IV 12/18/17 01:15 Magnesium Sulfate 4 gm/Sodium Chloride 100 ml @ 50 mls/hr UNSCH PRN IV 12/18/17 01:15 (Mag-Ox) 800 mg UNSCH PRN PO 12/18/17 01:15 Magnesium Sulfate 2 gm/Sodium Chloride 100 ml @ 50 mls/hr UNSCH PRN IV 12/18/17 01:15 (K-Phos) 2,000 mg Q4H PRN PO 12/18/17 01:15 Sodium Phosphate 30 mmol/Sodium Chloride 250 ml @ 42 mls/hr UNSCH PRN IV 12/18/17 01:15 (K-Phos) 2,000 mg UNSCH PRN PO/TUBE 12/18/17 01:15 Potassium Phosphate 30 mmol/ Sodium Chloride 260 ml @ 42 mls/hr UNSCH PRN IV 12/18/17 01:15 (Peridex 0.12% Liq) 15 ml BID@08,20 MT 12/18/17 08:00 12/18/17 08:35 (D50w (Vial) Inj) 25 ml UNSCH PRN IV PUSH 12/18/17 01:15 (NovoLIN R SUPPLEMENTAL SCALE) 1 Q6HR SQ 12/18/17 06:00 12/18/17 05:27 (Duoneb Neb) 1 ampule Q6HR NEB INH 12/18/17 04:00 12/18/17 08:44 (Duoneb Neb) 1 ampule Q2HR NEB PRN INH 12/18/17 01:15 Propofol 100 ml @ 0 mls/hr TITRATE PRN IV 12/18/17 01:45 12/18/17 11:02 Norepinephrine Bitartrate 4 mg/ Sodium Chloride 250 ml @ 7.5 mls/hr TITRATE PRN IV 12/18/17 02:30 12/18/17 02:42 (Brethine Inj) 1 mg UNSCH PRN SQ 12/18/17 02:30 Milrinone Lactate 20 mg/Sodium Chloride 100 ml @ 9 mls/hr Q11H7M IV 12/18/17 02:35 12/18/17 04:36 Norepinephrine Bitartrate 250 ml @ 7.5 mls/hr TITRATE PRN IV 12/18/17 02:45 12/18/17 11:02 (Brethine Inj) 1 mg UNSCH PRN SQ 12/18/17 02:45 Heparin Sodium/ Dextrose 250 ml @ 10 mls/hr TITRATE PRN IV 12/18/17 02:45 12/18/17 04:14 (Aspirin) 325 mg DAILY PO 12/18/17 09:00 12/18/17 08:35 Dopamine HCl/ Dextrose 500 ml @ 9.799 mls/ hr TITRATE PRN IV 12/18/17 04:15 12/18/17 04:35 (Brethine Inj) 1 mg UNSCH PRN SQ 12/18/17 04:15 Family History Per review of EMR, family history is positive for coronary artery disease, diabetes and hypertension. Negative for cancer. Father at the age of 93 from "old age." Mother at the age of 8 9 from old age. A 49-year- old brother from myocardial infarction. . Substance Use Tobacco: Previous smoker who reportedly quit in the 1987. Patient smoked 2 packs per day 30 years= 15-[id number]-dpeo smoking history Alcohol: Rare EtOH consumption Prescription med abuse: None known Illicits: None known . Psychosocial History Patient is originally from [place]. Patient his first and is currently to [place]. He has 2 children (Andrew and Carmen) with his first , and one son (Gerson) with his current . Both sons live locally. 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 Spiritual/Cultural Factors Uatsdin logan . Documented care wishes: Patient's states she thinks written advanced directive were completed; she is attempting to locate documents. . Today's verbally stated goals: Given current clinical condition, patient is unable to verbalized medical treatment goals. . Family/friends goals: Patient's expresses aggressive goals up to the point of cardiopulmonary resuscitation. However, she states she would not want her to suffer and would want to transition to more comfort focused care if it were to become appropriate. . Ethical and Legal Issues Per [place] statutes, in the absence of written advanced directives healthcare proxy decision making falls to the patient's - Brandy Calero . Physical Exam Vital Signs Date Time Temp Pulse Resp B/P (MAP) Pulse Ox O2 Delivery O2 Flow Rate FiO2 12/18/17 11:02 79 107/58 12/18/17 08:28 95 Ventilator 40 12/18/17 08:28 95 40 12/18/17 07:30 78 116/59 12/18/17 07:30 78 116/59 12/18/17 07:30 78 116/59 12/18/17 06:00 67 12/18/17 05:50 62 99/48 12/18/17 05:00 58 101/50 12/18/17 05:00 58 101/50 12/18/17 05:00 58 101/50 12/18/17 04:36 61 103/59 12/18/17 04:35 61 103/60 12/18/17 04:02 98 40 12/18/17 04:00 63 12/18/17 04:00 40 12/18/17 03:59 64 89/56 12/18/17 03:47 98 40 5/31/18 03:21 99.3 60 21 97/63 (74) 98 12/18/17 02:56 63 15 101/64 (76) 100 Ventilator 12/18/17 02:50 100 100 12/18/17 02:46 64 15 84/50 (61) 100 Ventilator 40 12/18/17 02:43 60 15 77/50 (59) 90 Ventilator 12/18/17 02:42 60 75/49 12/18/17 02:15 60 15 107/71 (83) 98 Ventilator 40 12/18/17 01:50 60 16 110/64 (79) 97 Ventilator 12/18/17 01:45 40 12/18/17 01:40 60 16 104/60 (75) 98 Ventilator 40 12/18/17 01:30 60 16 98/52 (67) 98 Ventilator 40 12/18/17 01:20 60 16 87/53 (64) 98 Ventilator 40 12/18/17 01:15 40 12/18/17 01:15 64 16 81/55 (64) 96 12/18/17 01:15 99 40 12/18/17 00:57 100 Nasal Cannula 4.00 12/18/17 00:35 100 BiPAP 100 12/18/17 00:35 75 40 100 BiPAP 100 12/18/17 00:35 87 40 141/88 (105) 100 BiPAP 100 12/18/17 00:34 99 Nasal Cannula 3.00 12/18/17 00:20 100 100 12/18/17 00:20 99.8 76 16 141/88 (105) 98 . 12/18/17 12/19/17 19:00 07:00 Intake Total 389 ml Balance 389 ml Intake IV Total 389 ml . Exam CONSTITUTIONAL/GENERAL: This is an adequately nourished patient, currently intubated and sedated on mechanical ventilation TUBES/LINES/DRAINS: Radial arterial line, CVL, OGT, ETT, indwelling Laura catheter SKIN: No jaundice, rashes, or lesions. No wounds seen anteriorly. Skin temperature appropriate. Not diaphoretic. Generalized pallor HEAD: Atraumatic. Normocephalic. EYES: Pupils equal and round, luggage.. No scleral icterus. No injection or drainage. Fundi not examined. ENT: Unable to assess hearing. Nose without bleeding or purulent drainage. Throat without visible erythema, exudates, masses, or lesions. NECK: Trachea midline. Supple, nontender. No palpable thyroid enlargement or nodularity. CARDIOVASCULAR: Regular rate and rhythm without murmurs, gallops, or rubs. No JVD. Peripheral pulses symmetric. RESPIRATORY/CHEST: Symmetric, unlabored respirations. Breath sounds equal bilaterally. No wheezes, rales, or rhonchi. GASTROINTESTINAL: Abdomen soft, non-tender, nondistended. No guarding. Bowel sounds present. GENITOURINARY: Without palpable bladder distension. Laura catheter in place. MUSCULOSKELETAL: Extremities without clubbing or cyanosis. Trace edema in bilateral lower extremities. Swelling in hands. LYMPHATICS: No palpable cervical or supraclavicular adenopathy. NEUROLOGICAL: Sedated on propofol; arousable to deep tactile stimuli. PSYCHIATRIC: Unable to assess given clinical condition. . Diagnostic Tests Laboratory Laboratory Tests Test 12/18/17 00:30 12/18/17 00:33 12/18/17 02:05 12/18/17 03:48 White Blood Count 8.6 TH/MM3 (4.0-11.0) Red Blood Count 4.39 MIL/MM3 (4.50-5.90) Hemoglobin 14.7 GM/DL (13.0-17.0) Hematocrit 43.5 % (39.0-51.0) Mean Corpuscular Volume 98.9 FL (80.0-100.0) Mean Corpuscular Hemoglobin 33.5 PG (27.0-34.0) Mean Corpuscular Hemoglobin Concent 33.9 % (32.0-36.0) Red Cell Distribution Width 15.9 % (11.6-17.2) Platelet Count 169 TH/MM3 (150-450) Mean Platelet Volume 9.0 FL (7.0-11.0) Neutrophils (%) (Auto) 34.6 % (16.0-70.0) Lymphocytes (%) (Auto) 41.6 % (9.0-44.0) Monocytes (%) (Auto) 14.1 % (0.0-8.0) Eosinophils (%) (Auto) 9.3 % (0.0-4.0) Basophils (%) (Auto) 0.4 % (0.0-2.0) Neutrophils # (Auto) 3.0 TH/MM3 (1.8-7.7) Lymphocytes # (Auto) 3.6 TH/MM3 (1.0-4.8) Monocytes # (Auto) 1.2 TH/MM3 (0-0.9) Eosinophils # (Auto) 0.8 TH/MM3 (0-0.4) Basophils # (Auto) 0.0 TH/MM3 (0-0.2) CBC Comment DIFF FINAL Differential Comment Prothrombin Time 13.1 SEC (9.8-11.6) Prothromb Time International Ratio 1.3 RATIO Activated Partial Thromboplast Time 33.9 SEC (24.3-30.1) Blood Urea Nitrogen 30 MG/DL (7-18) Creatinine 2.16 MG/DL (0.60-1.30) Random Glucose 199 MG/DL (74-106) Total Protein 7.7 GM/DL (6.4-8.2) Albumin 2.6 GM/DL (3.4-5.0) Calcium Level 8.2 MG/DL (8.5-10.1) Magnesium Level 2.2 MG/DL (1.5-2.5) Alkaline Phosphatase 336 U/L (45-117) Aspartate Amino Transf (AST/SGOT) 94 U/L (15-37) Alanine Aminotransferase (ALT/SGPT) 63 U/L (12-78) Total Bilirubin 0.7 MG/DL (0.2-1.0) Sodium Level 140 MEQ/L (136-145) Potassium Level 5.1 MEQ/L (3.5-5.1) Chloride Level 103 MEQ/L (98-107) Carbon Dioxide Level 26.8 MEQ/L (21.0-32.0) Anion Gap 10 MEQ/L (5-15) Estimat Glomerular Filtration Rate 30 ML/MIN (>89) Lactic Acid Level 3.5 mmol/L (0.4-2.0) Total Creatine Kinase 49 U/L (39-308) Troponin I 0.07 NG/ML (0.02-0.05) B-Type Natriuretic Peptide 1159 PG/ML (0-100) Digoxin Level 1.1 NG/ML (0.8-2.0) Blood Gas Puncture Site LT RADIAL ART LINE Blood Gas Patient Temperature 98.6 98.6 Blood Gas HCO3 23 mmol/L (22-26) 23 mmol/L (22-26) Blood Gas Base Excess -2.4 mmol/L (-2-2) -2.3 mmol/L (-2-2) Blood Gas Oxygen Saturation 98 % (90-100) 96 % (90-100) Arterial Blood pH 7.31 (7.380-7.420) 7.29 (7.380-7.420) Arterial Blood Partial Pressure CO2 47 mmHg (38-42) 51 mmHg (38-42) Arterial Blood Partial Pressure O2 248 mmHG (61-120) 126 mmHg (61-120) Arterial Blood Oxygen Content 20.8 Vol % (12.0-20.0) 18.8 Vol % (12.0-20.0) Arterial Blood Carboxyhemoglobin 0.8 % (0-4) 1.1 % (0-4) Arterial Blood Methemoglobin 0.4 % (0-2) 1.3 % (0-2) Blood Gas Hemoglobin 14.6 G/DL (12.0-16.0) 13.8 G/DL (12.0-16.0) Oxygen Delivery Device BIPAP VENTILATOR Blood Gas Ventilator Setting IPAP10/EPAP 5 15/500/IT1.0/5PEEP Blood Gas Inspired Oxygen 100 % 40 % Urine Color YELLOW (YELLW/STRAW) Urine Turbidity HAZY (CLEAR) Urine pH 5.5 (5.0-8.5) Urine Specific [place] 1.021 (1.002-1.035) Urine Protein 30 mg/dL (NEG-TRACE) Urine Glucose (UA) NEG mg/dL (NEG) Urine Ketones NEG mg/dL (NEG) Urine Occult Blood NEG (NEG) Urine Nitrite NEG (NEG) Urine Bilirubin NEG (NEG) Urine Urobilinogen 2.0 MG/DL (LESS THAN Urine Leukocyte Esterase NEG (NEG) Urine RBC 10 /hpf (0-3) Urine WBC 4 /hpf (0-5) Urine Squamous Epithelial Cells <1 /hpf (0-5) Urine Transitional Epithelial Cells <1 /hpf (NONE) Urine Hyaline Casts 11 /lpf (RARE) Urine Mucus FEW /lpf (OCC) Microscopic Urinalysis Comment CULT NOT INDICATED Test 12/18/17 04:30 12/18/17 08:45 Lactic Acid Level 1.7 mmol/L (0.4-2.0) Total Creatine Kinase 109 U/L (39-308) Creatine Kinase MB 1.6 NG/ML (0.5-3.6) Troponin I 0.28 NG/ML (0.02-0.05) . Result Diagram: 12/18/17 0030 12/18/17 0030 Microbiology Microbiology Date/Time Source Procedure Growth Status 12/18/17 00:35 Blood Peripheral Aerobic Blood Culture Pending Received 12/18/17 00:35 Blood Peripheral Anaerobic Blood Culture Pending Received 12/18/17 00:30 Blood Peripheral Aerobic Blood Culture Pending Received 12/18/17 00:30 Blood Peripheral Anaerobic Blood Culture Pending Received 12/18/17 03:50 Sputum Endotracheal Gram Stain - Final Resulted 12/18/17 03:50 Sputum Endotracheal Sputum Culture Pending Resulted . Imaging Last 72 hours Impressions Chest X-Ray 12/18/17 0049 Signed Impressions: CONCLUSION: Mild pulmonary edema. Chest X-Ray 12/18/17 0000 Signed Impressions: CONCLUSION: No appreciable change in probable pulmonary edema. Chest X-Ray 12/18/17 0000 Signed Impressions: CONCLUSION: Placement of ET tube and otherwise not changed. . Procedures 12/18/2017: Intubated 12/18/2017: NGT placement 12/18/2017: Right radial arterial line placement 12/18/2017: Right subclavian central line placement . Patient/Family Conference Present at Family Conference: Spoke to patient's (Erica) via telephone. . Family Conference Location: Telephone Issues Discussed: * Palliative care role, purpose, approach * Additional medical, psychosocial, and spiritual history * Patients general health, functional status, and cognitive changes in the months leading up to the current hospitalization * Patient/family understanding of the current medical problems * Patient/family understanding of prognosis * Patients goals of care as best understood from advance directives and/or conversations and/or values * Current medical treatment options and benefits/burdens of those options * Likely scenarios comparing ongoing aggressive care with a transition to comfort measures only * Questions answered to the best of my ability * Palliative care contact information provided . Assessment and Plan Disease Oriented Problem List: (1) Acute pulmonary edema (2) Cardiogenic shock (3) Acute non-ST elevation myocardial infarction (NSTEMI) (4) Acute respiratory failure with hypoxia (5) Acute metabolic encephalopathy (6) ACS (acute coronary syndrome) (7) Acute respiratory failure (8) Elevated troponin (9) Diabetes (10) Atrial fibrillation (11) Cardiomyopathy (12) History of COPD (13) Hypotension (14) Acute on chronic systolic CHF (congestive heart failure) Symptom Scale: (1) Pain 0-10 Scale: Unable to quantify (2) Dyspnea 0-10 Scale: Unable to quantify Pertinent Non-Medical Issues Psychosocial:Patient is originally from [place]. Patient his first and is currently to [place]. He has 2 children (Andrew and Carmen) with his first , and one son (Gerson) with his current . Both sons live locally. 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 Spiritual: Uatsdin logan; attends [employer]. Legal: Per [place] statutes, in the absence of written advanced directives healthcare proxy decision making falls to the patient's . Ethical issues impacting care: No known ethical issues impacting care. . Important Contacts Charlene Lerma, : [phone] or [phone] (possibly pt. cell) . Prognosis Patient is a 72-year-old male who is critically ill with 10 more organ system which are or may become a threat to life. Given his advanced age and multiple comorbid conditions, it is possible that the patient may not survive this hospitalization. If he does survive this hospitalization he will be high risk for ongoing decline and setbacks. . Code Status: Alternative Code (Intubation only) Plan * ALTERNATE CODE-intubation only. * Decision-making: Patient currently does not have insight or judgment related to his medical conditions and therefore is not capacitated to participate in establishing medical treatment goals. Per [place] statutes, in the absence of written advanced directives healthcare proxy decision making falls to the patient's . * Current goals are aggressive up to the point of cardiopulmonary resuscitation. Patient is an ALTERNATE CODE-intubation only. * Patient's expresses aggressive goals up to the point of cardiopulmonary resuscitation. However, she states she would not want her to suffer and would want to transition to more comfort focused care if it were to become appropriate. * Discussed patient with RN (Theo), Dr. Rainey, and Dr. Napoles * Palliative care contact information provided to the patient's . * Symptom management: = Dyspnea: Patient with ischemic cardiomyopathy who presents with acute hypoxic respiratory failure most likely secondary to acute congestive heart failure exacerbation, systolic type. Is unclear to me if this is secondary to a primary ischemic event or whether his troponin elevation is secondary to type II demand ischemia. Remains intubated on mechanical vent. No SBT today secondary to cardiogenic shock; nebulizers ordered ; trend ABGs = Pain: Multifactoral. Possible contributing factors may include ischemic cardiomyopathy, NSTEMI, encephalopathy, infection, invasive lines, immobility, bedbound status. Propofol for goal RASS -2; avoid long-acting sedatives. * Palliative care will follow throughout this hospitalization to establish trust , assist with symptom management and clarification of medical treatment goals. Thank you for the opportunity to participate in the care of Mr. Lerma. . Attestation To help prompt me to consider important information that might be impacting today's encounter and assessment, information from prior notes written by myself or my colleagues may have been "brought forward" into today's note. My signature on this note, however, is an attestation that I personally performed the exam, history, and/or decision-making noted today, and, unless otherwise indicated, the interactions with patient, family, and staff as well as the review of records all occurred today. I also attest that the listed assessment and stated plan reflect my best clinical judgment today based on the combination of historical information, prior notes, and today's exam/ interactions. When time spent is documented, it refers only to time spent today by the signer, or if indicated, combined time spent today by collaborating physician/nurse practitioner. . Anali Martinez December 18, 2017 11:53
--- NOTE | 2017-12-18 14:09 | MB ---
cc: Arben Moraes MD DATE: 12/18/2017 HISTORY OF PRESENT ILLNESS: Roberth is a very pleasant 73-year-old gentleman with a history of nonischemic cardiomyopathy. He has had stent to the LAD, which in 2014 was patent. EF baseline is 25-30%. The patient presented to the emergency room with chief complaint of dyspnea, tachypnea to the point where he could not complete sentences, was ultimately intubated. EKG showed demand ventricular pacing with a question of ST elevation in the anterior leads. CKs have been negative. Troponins have been minimally elevated, however, on serial recordings. The patient is currently on 40 percent oxygen. REVIEW OF SYSTEMS: Unobtainable as he is intubated and sedated. PAST MEDICAL HISTORY: As per history of present illness. He has a history of a myocardial infarction, COPD, asthma, ICD placement, gout, hyperlipidemia, stent placed in 2001, shrapnel removed from the left lower quadrant in the . SOCIAL HISTORY: Rarely drinks alcohol. Denies tobacco use. ALLERGIES: HYDROCODONE. MEDICATIONS PRIOR TO ADMISSION: 1. Percocet. 2. Novolin. 3. Levitra. 4. Aspirin. 5. Divalproex. 6. Pacerone. 7. Entresto 24-26. 8. Multivitamins. 9. Vitamin D3. 10. Striverdi. 11. Furosemide 20 mg daily. 12. Carvedilol 12.5 b.i.d. 13. Xarelto 15 mg daily. 14. Novolin. 15. Digoxin 0.125 daily. 16. Atorvastatin 20 mg at bedtime. 17. Allopurinol 100 mg daily. MEDICATIONS: In the hospital: Aspirin 325 daily, insulin, IV dopamine, IV norepinephrine, IV heparin, IV milrinone IV propofol, potassium supplementation, and magnesium supplementation. PHYSICAL EXAMINATION: VITAL SIGNS: Blood pressure 97/55, pulse 78, respiratory 18, sats are 95 percent on 40 percent oxygen. Temp 99.8. GENERAL APPEARANCE: He is intubated and sedated. NECK: Supple. No JVD or bruit. CARDIOVASCULAR: S1, S2. No murmurs, rubs or gallops. LUNGS: Clear to auscultation bilaterally. ABDOMEN: Soft, nontender, nondistended with positive bowel sounds. EXTREMITIES: No extremity edema. Chest x-ray from this morning shows mild pulmonary edema. Chest x-ray on admission, perivascular pulmonary edema. LABORATORY DATA: White count 8.6, hemoglobin 14.7, hematocrit 43.5, platelet count 169. Blood gas from this morning, pH of 7.29, pCO2 of 51, pO2 126 on 40 percent oxygen. INR on admission was 1.3. PTT this morning at 10:10 a.m. is 82.8. Sodium 135, potassium 5.4, chloride 101, bicarbonate 22.1, BUN 38, creatinine 2.45. Troponin was initially 0.07. Subsequent troponin at 4:30 a.m. was 0.28. Troponin at 8:45 was 0.29. CK was negative x 3. Initial BNP is 1159. A repeat BMP is 678. Lactic acid is 3.5. Initial creatinine is 2.16. EKG shows A-pace, V-pace rhythm. DIAGNOSES: 1. [id number] myocardial infarction. 2. Respiratory failure. 3. Lactic acidosis. 4. Cardiomyopathy. 5. Decompensated congestive heart failure. 6. Cardiogenic shock. 7. Hypotension. 8. Permanent pacemaker. 9. Acute renal failure. 10. Elevated liver enzymes. 11. Hyponatremia. 12. Hyperkalemia. DISCUSSION: At this point in time, based on the trends in his troponins and CK, suspect that this is elevated secondary to hypoxia secondary to chronic obstructive pulmonary disease, as well as hypotension. Agree with aspirin and heparin. Supportive care with pressors as clinically indicated. The patient appears to be improving clinically as his BNP is decreasing; however, this is at the expense of worsening acute renal failure. At this point in time, we will manage him medically. If the patient becomes more stable, creatinine improves, could consider heart catheterization. It was reported in the ER that the patient possibly followed up with Dr. Giraldo, but this could not be confirmed. I spoke to the patient's and she states that he has been seen by the "replacement, Dr. Shultz" in the office this past year, but he could not recall the name. I have signed the patient out to the hub to reach out to Dr. Giraldo's group to determine whether or not this patient is established in their group and whether or not to take over the care. Otherwise, continue current management. MD FELIX Polanco/SARAH , 01:09 PM , 02:08 PM
--- NOTE | 2017-12-18 14:58 | EKG ---
Date Performed: 12/18/2017 Time Performed: 00:19:52 PTAGE: 72 years EKG: ATRIAL FIBRILLATION INTRAVENTRICULAR CONDUCTION DELAY MARKED ST ELEVATION, CONSIDER ANTERIO R INJURY ACUTE MN Since the PREVIOUS TRACING , no significant change noted PREVIOUS TRACIN10/31/2017 12.54 DOCTOR: Arben Moraes Interpretating Date/Time 12/18/2017 14:55:57
--- NOTE | 2017-12-18 14:58 | EKG ---
Date Performed: 12/18/2017 Time Performed: 01:24:54 PTAGE: 72 years EKG: ELECTRONIC ATRIAL PACEMAKER ELECTRONIC VENTRICULAR PACEMAKER ABNORMAL RHYTHM ECG Since the PREVIOUS TRACING , no significant change noted PREVIOUS TRACIN12/18/2017 00.19 DOCTOR: Arben Moraes Interpretating Date/Time 12/18/2017 14:56:09
[2017-12-18] MEDS ORDERED: GLUCAGON 1 MG/ML VIAL IM/SQ PRN (15:15)
[2017-12-18] MEDS ORDERED: DEXTROSE 50% IN WATER 50 ML VIAL(D50) IV PRN (15:15)
[2017-12-18] MEDS: INSULIN DETEMIR 100 UNITS/ML VIAL SQ SCH ×2 (15:15→20:37)
--- NOTE | 2017-12-18 15:52 | ECHRPT ---
Indication: HEART FAILURE CONCLUSIONS Moderately dilated left ventricle. Wall thickness is measured at the upper limits of normal. The left ventricular systolic function is severely reduced with an estimated ejection fraction in th e range of 20-25%. There is abnormal septal motion consistent with a right ventricle pacemaker. A pacemaker wire is noted. The right ventricular size is normal. The right ventricle was not well visualized. The right ventricular systoilc function is normal. The left atrial size is moderately dilated. The pulmonary valve is not well visualized. BP: / HR: Rhythm: MEASUREMENTS (Male / Female) Normal Values Technical Quality: 2D ECHO LV Diastolic Diameter PLAX 6.3 cm 4.2 - 5.9 / 3.9 - 5.3 cm LV Systolic Diameter PLAX 5.9 cm IVS Diastolic Thickness 0.9 cm 0.6 - 1.0 / 0.6 - 0.9 cm LVPW Diastolic Thickness 0.7 cm 0.6 - 1.0 / 0.6 - 0.9 cm LV Relative Wall Thickness 0.3 RV Internal Dim ED PLAX 2.1 cm DOPPLER Mitral E Point Velocity 82.4 cm/s Mitral A Point Velocity 77.5 cm/s Mitral E to A Ratio 1.1 TR Peak Velocity 160.0 cm/s TR Peak Gradient 10.2 mmHg FINDINGS LEFT VENTRICLE Moderately dilated left ventricle. Wall thickness is measured at the upper limits of normal. The left ventricular systolic function is severely reduced with an estimated ejection fraction in th e range of 20-25%. There is abnormal septal motion consistent with a right ventricle pacemaker. RIGHT VENTRICLE A pacemaker wire is noted. The right ventricular size is normal. The right ventricle was not well visualized. The right ventricular systoilc function is normal. LEFT ATRIUM The left atrial size is moderately dilated. RIGHT ATRIUM The right atrial size is normal. ATRIAL SEPTUM Normal atrial septal thickness without atrial level shunting by limited color doppler interrogation. AORTA The aortic root and proximal ascending aorta are normal in size on limited imaging. MITRAL VALVE Structurally normal mitral valve. No mitral valve stenosis or regurgitation. AORTIC VALVE Trileaflet aortic valve. No aortic valve stenosis or regurgitation. TRICUSPID VALVE Structurally normal tricuspid valve. No tricuspid valve stenosis or regurgitation. PULMONARY VALVE The pulmonary valve is not well visualized. VESSELS The inferior vena cava is normal in size. PERICARDIUM No pericardial effusion. Ignacio Gardner MD, FACC (Electronically Signed) Final Date:18 Dec 2017 15:51
[2017-12-18 16:47] LABS: TROPONIN I 0.17 NG/ML (0.02-0.05)
[2017-12-18] MEDS: INSULIN ASPART SUPPLEMENTAL SCALE SQ SCH ×2 (17:56→23:19)
[2017-12-19] VITALS (17 sets, daily range): BP systolic 93–117; BP diastolic 54–70; PULSE 74–97; RESP 18–21; TEMP 97.4–98; O2SAT 96–98
[2017-12-19 00:24] LABS: BICARBONATE 21.5 MEQ/L (21.0-32.0); CALCIUM 8.3 MG/DL (8.5-10.1); CREATININE 2.6 MG/DL (0.60-1.30); MAGNESIUM 2.1 MG/DL (1.5-2.5)
[2017-12-19] MEDS: PROPOFOL 1000 MG/100 ML INJ 100 ML IV PRN ×3 (00:25→19:39)
[2017-12-19 00:28] LABS: TROPONIN I 0.13 NG/ML (0.02-0.05)
[2017-12-19] MEDS: RESP: ALBUTEROL 2.5 MG/IPRATROPIUM 0.5 MG NEB (SCH) INH ×4 (04:00→20:57)
[2017-12-19 05:17] LABS: HEMOGLOBIN 13.6 GM/DL (13.0-17.0); MEAN CELL VOLUME 96.6 FL (80.0-100.0); MEAN CORPUSCULAR HEMOGLOBIN 32.8 PG (27.0-34.0); MEAN CORPUSCULAR HGB CONC 33.9 % (32.0-36.0); MEAN PLATELET VOLUME 8.5 FL (7.0-11.0); PLATELET COUNT 194 TH/MM3 (150-450); RED BLOOD COUNT 4.14 MIL/MM3 (4.50-5.90); RED CELL DISTRIBUTION WIDTH 15.6 % (11.6-17.2); WHITE BLOOD COUNT 17.4 TH/MM3 (4.0-11.0)
[2017-12-19 05:47] LABS: BICARBONATE 22.3 MEQ/L (21.0-32.0); CALCIUM 8.6 MG/DL (8.5-10.1); CREATININE 2.6 MG/DL (0.60-1.30); MAGNESIUM 2.2 MG/DL (1.5-2.5)
[2017-12-19] MEDS: INSULIN ASPART SUPPLEMENTAL SCALE SQ SCH ×4 (05:52→23:47)
[2017-12-19] MEDS: INSULIN DETEMIR 100 UNITS/ML VIAL SQ SCH ×2 (09:00→19:49)
[2017-12-19] MEDS: ASPIRIN 325 MG TAB PO SCH (09:35)
[2017-12-19] MEDS: CHLORHEXIDINE 0.12% (ORAL KIT) 15 ML CUP MT SCH ×2 (09:36→19:48)
[2017-12-19] MEDS: MILRINONE INJ 20 MG in SODIUM CHLORIDE 0.9% INJ 80 ML IV SCH ×2 (09:42→20:13)
[2017-12-19] MEDS ORDERED: FUROSEMIDE 40 MG/4 ML VIAL IV PUSH ONE (10:30)
--- NOTE | 2017-12-19 13:02 | HHI.HCPN ---
Reason for visit a. To assist with evaluation and management of symptoms including: dyspnea, pain b. To assist medical decision maker(s) with: better understanding of current medical conditions; weighing benefits/burdens of medical treatment options; making medical treatment decisions. . Subjective/Interval History Follow up visit for pain and dyspnea as well as clarification of medical treatment goals. Patient seen and assessed in the intensive care unit, room 527. No family members present. Patient remains intubated, sedated on propofol 20 mcg/kg/min and mechanically ventilated. FiO2 40%, rate 18, PEEP 5. Remains on Levophed, Dopamine, Milrinone and Heparin drip. Titrating patient off Levophed, currently on 1 mcg/min. Cardiology, Dr. Moraes, evaluated the patient yesterday 12/18/2017. Per review of notes, patient has a history of nonischemic cardiomyopathy. He has a stent to the LAD, which was patent and 2015. He has baseline 25-30%. EKG showed demand ventricular pacing with a question of ST elevation in the in anterior leads. CK have been negative. Troponins trending downward, most recent troponin of 0.13. Cardiology suspects initial elevated troponin was related to hypoxia secondary to COPD, as well as hypotension. BNP is decreasing , currently 357 (decreased from 1159 on admission). Agree with ASA and heparin , recommending medical management at this time. If the patient becomes more stable and creatine improves, may want to consider heart catheterization. Afebrile. Cultures remain negative today. Pulse: 96; respirations 18; BP 108/ 66 (74) Lab work reviewed on 12/19/2017: = WBC: 17.4, hemoglobin 13.6, hematocrit 40.0, platelets 194 = Sodium: 133, potassium 4.8, chloride 99, carbon dioxide 22.3, glucose 245, calcium 8.6, magnesium 2.2 = BUN: 48, creatinine 2.60, GFR 24 = BNP: 357 Spoke with patient's (Brandy Calero) who again states she wants to support her and hopes he will "turn this around," but she does not want to prolong his suffering if it becomes obvious that he will not survive this hospitalization. She describes and acute decline in recent months noting progressively increased fatigue and dyspnea with minimal exertion; patient uses supplemental oxygen at night but this is no longer effective. Patient's appetite is poor and he often skips meals or eats only a few bites. This is the patient's second hospitalization in 4 months with similar complaints. Briefly discussed hospice services per Mrs. Lerma's request. Plan to allow the patient more time to improve, hopefully patient will have capacity to make his own medical decisions. However if goals become comfort oriented, hospice would be an appropriate option. . Family/friend interactions See interval history . Advance Directives Advance Directive Specifics Documented care wishes: Patient's states she thinks written advanced directive were completed; she is attempting to locate documents. . Objective Vital Signs Date Time Temp Pulse Resp B/P (MAP) Pulse Ox O2 Delivery O2 Flow Rate FiO2 12/19/17 10:00 97 12/19/17 09:42 93 118/69 12/19/17 09:06 97 40 12/19/17 08:00 93 12/19/17 08:00 40 12/19/17 08:00 97.4 97 21 95/61 (72) 97 109/70 (83) 12/19/17 06:00 96 12/19/17 04:01 97 40 12/19/17 04:00 97.5 97 21 95/61 (72) 97 109/70 (83) 12/19/17 04:00 40 12/19/17 04:00 96 12/19/17 02:00 91 12/19/17 00:01 96 40 12/19/17 00:00 40 12/19/17 00:00 97.5 79 18 93/54 (67) 96 96/57 (70) 12/19/17 00:00 91 12/18/17 23:29 92 99/59 12/18/17 22:00 91 12/18/17 21:18 86 99/66 12/18/17 20:57 96 40 12/18/17 20:00 97.5 79 21 94/54 (67) 95 97/57 (70) 12/18/17 20:00 40 12/18/17 20:00 80 12/18/17 18:00 77 12/18/17 16:00 98.5 78 18 99/58 (72) 95 112/63 (79) 112/63 (79) 12/18/17 16:00 40 12/18/17 16:00 78 12/18/17 15:45 95 40 12/18/17 14:39 80 97/57 12/18/17 14:00 77 12/18/17 13:19 79 103/60 Intake & Output 12/19/17 12/19/17 07:00 19:00 Output Total 325 ml Balance -325 ml Output Urine Total 325 ml Stool Total 0 ml . Physical Exam CONSTITUTIONAL/GENERAL: This is an adequately nourished patient, currently intubated and sedated on mechanical ventilation TUBES/LINES/DRAINS: Radial arterial line, CVL, OGT, ETT, indwelling Laura catheter, PIV SKIN: No jaundice, rashes, or lesions. No wounds seen anteriorly. Skin temperature appropriate. Not diaphoretic. Generalized pallor HEAD: Atraumatic. Normocephalic. EYES: Pupils equal and round, luggage.. No scleral icterus. No injection or drainage. Fundi not examined. ENT: Unable to assess hearing. Nose without bleeding or purulent drainage. Throat without visible erythema, exudates, masses, or lesions. NECK: Trachea midline. Supple, nontender. No palpable thyroid enlargement or nodularity. CARDIOVASCULAR: Regular rate and rhythm without murmurs, gallops, or rubs. No JVD. Peripheral pulses symmetric. RESPIRATORY/CHEST: Symmetric, unlabored respirations. Breath sounds equal bilaterally. No wheezes, rales, or rhonchi. GASTROINTESTINAL: Abdomen soft, non-tender, nondistended. No guarding. Bowel sounds present. GENITOURINARY: Without palpable bladder distension. Laura catheter in place. MUSCULOSKELETAL: Extremities without clubbing or cyanosis. Trace edema in bilateral lower extremities. Swelling in hands. LYMPHATICS: No palpable cervical or supraclavicular adenopathy. NEUROLOGICAL: Sedated on propofol. Arouses easily to verbal stimuli. Follows simple one-step commands; answers yes/no questions by nodding/shaking his head. PSYCHIATRIC: Unable to assess given clinical condition. . Diagnostic Tests Laboratory Laboratory Tests Test 12/18/17 00:30 12/18/17 00:33 12/18/17 02:05 12/18/17 03:48 White Blood Count 8.6 TH/MM3 (4.0-11.0) Red Blood Count 4.39 MIL/MM3 (4.50-5.90) Hemoglobin 14.7 GM/DL (13.0-17.0) Hematocrit 43.5 % (39.0-51.0) Mean Corpuscular Volume 98.9 FL (80.0-100.0) Mean Corpuscular Hemoglobin 33.5 PG (27.0-34.0) Mean Corpuscular Hemoglobin Concent 33.9 % (32.0-36.0) Red Cell Distribution Width 15.9 % (11.6-17.2) Platelet Count 169 TH/MM3 (150-450) Mean Platelet Volume 9.0 FL (7.0-11.0) Neutrophils (%) (Auto) 34.6 % (16.0-70.0) Lymphocytes (%) (Auto) 41.6 % (9.0-44.0) Monocytes (%) (Auto) 14.1 % (0.0-8.0) Eosinophils (%) (Auto) 9.3 % (0.0-4.0) Basophils (%) (Auto) 0.4 % (0.0-2.0) Neutrophils # (Auto) 3.0 TH/MM3 (1.8-7.7) Lymphocytes # (Auto) 3.6 TH/MM3 (1.0-4.8) Monocytes # (Auto) 1.2 TH/MM3 (0-0.9) Eosinophils # (Auto) 0.8 TH/MM3 (0-0.4) Basophils # (Auto) 0.0 TH/MM3 (0-0.2) CBC Comment DIFF FINAL Differential Comment Prothrombin Time 13.1 SEC (9.8-11.6) Prothromb Time International Ratio 1.3 RATIO Activated Partial Thromboplast Time 33.9 SEC (24.3-30.1) Blood Urea Nitrogen 30 MG/DL (7-18) Creatinine 2.16 MG/DL (0.60-1.30) Random Glucose 199 MG/DL (74-106) Total Protein 7.7 GM/DL (6.4-8.2) Albumin 2.6 GM/DL (3.4-5.0) Calcium Level 8.2 MG/DL (8.5-10.1) Magnesium Level 2.2 MG/DL (1.5-2.5) Alkaline Phosphatase 336 U/L (45-117) Aspartate Amino Transf (AST/SGOT) 94 U/L (15-37) Alanine Aminotransferase (ALT/SGPT) 63 U/L (12-78) Total Bilirubin 0.7 MG/DL (0.2-1.0) Sodium Level 140 MEQ/L (136-145) Potassium Level 5.1 MEQ/L (3.5-5.1) Chloride Level 103 MEQ/L (98-107) Carbon Dioxide Level 26.8 MEQ/L (21.0-32.0) Anion Gap 10 MEQ/L (5-15) Estimat Glomerular Filtration Rate 30 ML/MIN (>89) Lactic Acid Level 3.5 mmol/L (0.4-2.0) Total Creatine Kinase 49 U/L (39-308) Troponin I 0.07 NG/ML (0.02-0.05) B-Type Natriuretic Peptide 1159 PG/ML (0-100) Digoxin Level 1.1 NG/ML (0.8-2.0) Blood Gas Puncture Site LT RADIAL ART LINE Blood Gas Patient Temperature 98.6 98.6 Blood Gas HCO3 23 mmol/L (22-26) 23 mmol/L (22-26) Blood Gas Base Excess -2.4 mmol/L (-2-2) -2.3 mmol/L (-2-2) Blood Gas Oxygen Saturation 98 % (90-100) 96 % (90-100) Arterial Blood pH 7.31 (7.380-7.420) 7.29 (7.380-7.420) Arterial Blood Partial Pressure CO2 47 mmHg (38-42) 51 mmHg (38-42) Arterial Blood Partial Pressure O2 248 mmHG (61-120) 126 mmHg (61-120) Arterial Blood Oxygen Content 20.8 Vol % (12.0-20.0) 18.8 Vol % (12.0-20.0) Arterial Blood Carboxyhemoglobin 0.8 % (0-4) 1.1 % (0-4) Arterial Blood Methemoglobin 0.4 % (0-2) 1.3 % (0-2) Blood Gas Hemoglobin 14.6 G/DL (12.0-16.0) 13.8 G/DL (12.0-16.0) Oxygen Delivery Device BIPAP VENTILATOR Blood Gas Ventilator Setting IPAP10/EPAP 5 15/500/IT1.0/5PEEP Blood Gas Inspired Oxygen 100 % 40 % Urine Color YELLOW (YELLW/STRAW) Urine Turbidity HAZY (CLEAR) Urine pH 5.5 (5.0-8.5) Urine Specific [place] 1.021 (1.002-1.035) Urine Protein 30 mg/dL (NEG-TRACE) Urine Glucose (UA) NEG mg/dL (NEG) Urine Ketones NEG mg/dL (NEG) Urine Occult Blood NEG (NEG) Urine Nitrite NEG (NEG) Urine Bilirubin NEG (NEG) Urine Urobilinogen 2.0 MG/DL (LESS THAN Urine Leukocyte Esterase NEG (NEG) Urine RBC 10 /hpf (0-3) Urine WBC 4 /hpf (0-5) Urine Squamous Epithelial Cells <1 /hpf (0-5) Urine Transitional Epithelial Cells <1 /hpf (NONE) Urine Hyaline Casts 11 /lpf (RARE) Urine Mucus FEW /lpf (OCC) Microscopic Urinalysis Comment CULT NOT INDICATED Test 12/18/17 04:30 12/18/17 08:45 12/18/17 10:10 12/18/17 15:45 Nasal Screen MRSA (PCR) MRSA NOT DETECTED (NOT Lactic Acid Level 1.7 mmol/L (0.4-2.0) Total Creatine Kinase 109 U/L (39-308) 108 U/L (39-308) 94 U/L (39-308) Creatine Kinase MB 1.6 NG/ML (0.5-3.6) Troponin I 0.28 NG/ML (0.02-0.05) 0.29 NG/ML (0.02-0.05) 0.17 NG/ML (0.02-0.05) Blood Urea Nitrogen 38 MG/DL (7-18) Creatinine 2.45 MG/DL (0.60-1.30) Random Glucose 337 MG/DL (74-106) Calcium Level 8.2 MG/DL (8.5-10.1) Magnesium Level 2.2 MG/DL (1.5-2.5) Sodium Level 135 MEQ/L (136-145) Potassium Level 5.4 MEQ/L (3.5-5.1) Chloride Level 101 MEQ/L (98-107) Carbon Dioxide Level 22.3 MEQ/L (21.0-32.0) Anion Gap 12 MEQ/L (5-15) Estimat Glomerular Filtration Rate 26 ML/MIN (>89) Activated Partial Thromboplast Time 82.8 SEC (24.3-30.1) B-Type Natriuretic Peptide 678 PG/ML (0-100) Test 12/18/17 18:00 12/18/17 23:25 12/19/17 02:20 12/19/17 03:40 Activated Partial Thromboplast Time 105.7 SEC (24.3-30.1) 57.1 SEC (24.3-30.1) Blood Urea Nitrogen 45 MG/DL (7-18) 48 MG/DL (7-18) Creatinine 2.60 MG/DL (0.60-1.30) 2.60 MG/DL (0.60-1.30) Random Glucose 289 MG/DL (74-106) 245 MG/DL (74-106) Calcium Level 8.3 MG/DL (8.5-10.1) 8.6 MG/DL (8.5-10.1) Magnesium Level 2.1 MG/DL (1.5-2.5) 2.2 MG/DL (1.5-2.5) Sodium Level 134 MEQ/L (136-145) 133 MEQ/L (136-145) Potassium Level 4.7 MEQ/L (3.5-5.1) 4.8 MEQ/L (3.5-5.1) Chloride Level 99 MEQ/L (98-107) 99 MEQ/L (98-107) Carbon Dioxide Level 21.5 MEQ/L (21.0-32.0) 22.3 MEQ/L (21.0-32.0) Anion Gap 14 MEQ/L (5-15) 12 MEQ/L (5-15) Estimat Glomerular Filtration Rate 24 ML/MIN (>89) 24 ML/MIN (>89) Total Creatine Kinase 80 U/L (39-308) Troponin I 0.13 NG/ML (0.02-0.05) White Blood Count 17.4 TH/MM3 (4.0-11.0) Red Blood Count 4.14 MIL/MM3 (4.50-5.90) Hemoglobin 13.6 GM/DL (13.0-17.0) Hematocrit 40.0 % (39.0-51.0) Mean Corpuscular Volume 96.6 FL (80.0-100.0) Mean Corpuscular Hemoglobin 32.8 PG (27.0-34.0) Mean Corpuscular Hemoglobin Concent 33.9 % (32.0-36.0) Red Cell Distribution Width 15.6 % (11.6-17.2) Platelet Count 194 TH/MM3 (150-450) Mean Platelet Volume 8.5 FL (7.0-11.0) B-Type Natriuretic Peptide 357 PG/ML (0-100) Test 12/19/17 10:00 Activated Partial Thromboplast Time 42.5 SEC (24.3-30.1) . Result Diagram: 12/19/1733912/19/17 0340 Microbiology Microbiology Date/Time Source Procedure Growth Status 12/18/17 00:35 Blood Peripheral Aerobic Blood Culture - Preliminary NO GROWTH IN 1 DAY Resulted 12/18/17 00:35 Blood Peripheral Anaerobic Blood Culture - Preliminary NO GROWTH IN 1 DAY Resulted 12/18/17 00:30 Blood Peripheral Aerobic Blood Culture - Preliminary NO GROWTH IN 1 DAY Resulted 12/18/17 00:30 Blood Peripheral Anaerobic Blood Culture - Preliminary NO GROWTH IN 1 DAY Resulted 12/18/17 03:50 Sputum Endotracheal Gram Stain - Final Resulted 12/18/17 03:50 Sputum Endotracheal Sputum Culture Pending Resulted . Imaging Last 72 hours Impressions Chest X-Ray 12/18/17 0049 Signed Impressions: CONCLUSION: Mild pulmonary edema. Chest X-Ray 12/18/17 0000 Signed Impressions: CONCLUSION: No appreciable change in probable pulmonary edema. Chest X-Ray 12/18/17 0000 Signed Impressions: CONCLUSION: Placement of ET tube and otherwise not changed. . Procedures 12/18/2017: Intubated 12/18/2017: NGT placement 12/18/2017: Right radial arterial line placement 12/18/2017: Right subclavian central line placement . Assessment and Plan Disease Oriented Problem List: (1) Acute pulmonary edema (2) Cardiogenic shock (3) Acute non-ST elevation myocardial infarction (NSTEMI) (4) Acute respiratory failure with hypoxia (5) Acute metabolic encephalopathy (6) ACS (acute coronary syndrome) (7) Acute respiratory failure (8) Elevated troponin (9) Diabetes (10) Atrial fibrillation (11) Cardiomyopathy (12) History of COPD (13) Hypotension (14) Acute on chronic systolic CHF (congestive heart failure) Symptom Scale: (1) Pain 0-10 Scale: Unable to quantify (2) Dyspnea 0-10 Scale: Unable to quantify Pertinent Non-Medical Issues Psychosocial:Patient is originally from [place]. Patient his first and is currently to [place]. He has 2 children (Andrew and Carmen) with his first , and one son (Gerson) with his current . Both sons live locally. 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 Spiritual: Amish logan; attends [employer]. Legal: Per [place] statutes, in the absence of written advanced directives healthcare proxy decision making falls to the patient's . Ethical issues impacting care: No known ethical issues impacting care. . Important Contacts Charlene Lerma, : [phone] or [phone] (possibly pt. cell) . Prognosis Patient is a 72-year-old male who is critically ill with 10 more organ system which are or may become a threat to life. Given his advanced age and multiple comorbid conditions, it is possible that the patient may not survive this hospitalization. If he does survive this hospitalization he will be high risk for ongoing decline and setbacks. . Code Status: Alternative Code (Intubation only) Plan * ALTERNATE CODE-intubation only. * Decision-making: Patient currently does not have insight or judgment related to his medical conditions and therefore is not capacitated to participate in establishing medical treatment goals. Per [place] statutes, in the absence of written advanced directives healthcare proxy decision making falls to the patient's . * Current goals are aggressive up to the point of cardiopulmonary resuscitation. Patient is an ALTERNATE CODE-intubation only. * Spoke with patient's (Brandy Calero) who again states she wants to support her and hopes he will "turn this around," but she does not want to prolong his suffering if it becomes obvious that he will not survive this hospitalization. She describes and acute decline in recent months noting progressively increased fatigue and dyspnea with minimal exertion; patient uses supplemental oxygen at night but this is no longer effective. Patient's appetite is poor and he often skips meals or eats only a few bites. This is the patient's second hospitalization in 4 months with similar complaints. Briefly discussed hospice services per Mrs. Lemra's request. Plan to allow the patient more time to improve, hopefully patient will have capacity to make his own medical decisions. However if goals become comfort oriented, hospice would be an appropriate option. * Discussed patient with RN (Theo) and Dr. Dipti Napoles * Symptom management: = Dyspnea: Patient with ischemic cardiomyopathy who presents with acute hypoxic respiratory failure most likely secondary to acute congestive heart failure exacerbation, systolic type. Is unclear to me if this is secondary to a primary ischemic event or whether his troponin elevation is secondary to type II demand ischemia. Remains intubated on mechanical vent. = Pain: Multifactoral. Possible contributing factors may include ischemic cardiomyopathy, NSTEMI, encephalopathy, infection, invasive lines, immobility, bedbound status. Propofol for goal RASS -2; avoid long-acting sedatives. * Palliative care will follow throughout this hospitalization to establish trust , assist with symptom management and clarification of medical treatment goals. . Time Spent Time Periods: 1025am-1133 Total Floor Time (mins): 68 (Time to include review of medical notes, patient examination, extensive conversation with family and collaboration with medical team) Face to Face Time (mins): 15 >50% Counseling/Coord of Care: Yes Attestation To help prompt me to consider important information that might be impacting today's encounter and assessment, information from prior notes written by myself or my colleagues may have been "brought forward" into today's note. My signature on this note, however, is an attestation that I personally performed the exam, history, and/or decision-making noted today, and, unless otherwise indicated, the interactions with patient, family, and staff as well as the review of records all occurred today. I also attest that the listed assessment and stated plan reflect my best clinical judgment today based on the combination of historical information, prior notes, and today's exam/ interactions. When time spent is documented, it refers only to time spent today by the signer, or if indicated, combined time spent today by collaborating physician/nurse practitioner. . Anali Martinez Dec 19, 2017 13:02
[2017-12-19] MEDS: DOPamine 800 MG/500 ML INJ 500 ML IV PRN (17:15)
[2017-12-19] MEDS: HEPARIN-D5W 25,000 U/250 ML 250 ML IV PRN (17:17)
--- NOTE | 2017-12-19 19:03 | HHI.CCPN ---
Subjective Remarks/Hospital Course 12/18: This is a 72-year-old male with a history of ischemic cardiomyopathy and reported EF of 30% EMS for acute shortness of breath 1 day. He was acutely hypoxic in the emergency department. Initially placed on BiPAP but started vomiting into the BiPAP mask and so was emergently intubated. Chest x-ray suggestive of volume overload and pulmonary edema. Troponin elevated at 0.07. BNP elevated at 1100. Creatinine elevated 2.16. When I evaluated the patient he was intubated and sedated. No additional information is available from the patient. ROS unobtainable. Post intubation, he was hypotensive. I emergently placed arterial and central lines. Started norepinephrine. Performed bedside critical care ultrasound which demonstrates severe global left ventricular dysfunction with an EF much less than 20% at this point. Severe RV dysfunction and dilation as well. IVC dilated at greater than 2-1/2 cm without any respiratory variation. Spontaneous echo contrast seen in the IVC and right atrium. No pericardial effusion. I give 100 mg of IV Lasix and started milrinone infusion. Lactate is elevated at 3.5. 12/19: Sedated, orally noted on mechanical ventilation. Objective Vital Signs Date Time Temp Pulse Resp B/P (MAP) Pulse Ox O2 Delivery O2 Flow Rate FiO2 12/19/17 18:00 82 12/19/17 17:15 105/61 12/19/17 16:00 98.0 18 96 12/19/17 16:00 40 12/18/17 08:28 Ventilator 12/18/17 00:57 4.00 Intake and Output 12/19/17 12/19/17 12/20/17 08:00 16:00 00:00 Intake Total 634 ml Output Total 325 ml 1225 ml Balance -325 ml -591 ml Result Diagram: 12/19/17 0340 12/19/17 0340 Imaging Last Impressions Chest X-Ray 12/18/17 0049 Signed Impressions: CONCLUSION: Mild pulmonary edema. Objective Remarks GENERAL: Frail elderly male, lying in bed, intubated, sedated, critically ill HEENT: Normocephalic. Atraumatic. Pupils equal, round, reactive, conjugate. Mucous membranes are moist NECK: Trachea is midline. Positive JVD up above the level of the mandible CHEST: Equal chest rise. PRVC. 100% FiO2. PEEP of 10. CARDIOVASCULAR: Normal rate, irregularly irregular rhythm. A. fib by telemetry. Hypotensive with systolics in the 70. ABDOMEN: Soft, nontender, nondistended. No guarding. MUSCULOSKELETAL: Pulses 1+. No peripheral edema. Extremities are cool and poorly perfused NEUROLOGICAL: RASS -4. Very recently intubated and sedated. Does not follow commands. Moves all extremities spontaneously. A/P Assessment and Plan Assessment: 72-year-old male with ischemic cardiomyopathy who presents with acute hypoxic respiratory failure most likely secondary to acute congestive heart failure exacerbation, systolic type. Is unclear to me if this is secondary to a primary ischemic event or whether his troponin elevation is secondary to type II demand ischemia. Will start heparinization and aspirin therapy and trend his troponins. He is very clearly in cardiogenic shock and will need inotropic therapy. We will start milrinone and norepinephrine. Forced diuresis. Very critically ill, and given age and multiple medical comorbidities, this could be a fatal acute hospitalization for him. Plan by systems: Neurologic: Acute metabolic encephalopathy Frequent neurochecks Propofol for goal RASS -2 Avoid long-acting sedatives Respiratory: Acute hypoxic respiratory failure Acute pulmonary edema Wean FiO2 for goal SPO2 greater than 90% Nebs Head of bed elevated Keep PEEP elevated at 10 Vent bundle No SBT today given cardiogenic shock Trend ABG Cardiovascular: Acute pulmonary edema Ischemic cardiomyopathy with a reported EF of 30% Cardiogenic shock Acute non-ST elevation myocardial infarction: Unclear if type I versus type II Acute severe systolic congestive heart failure exacerbation Trend troponins Start milrinone at 0.375 mcg/kg/min Norepinephrine for goal map greater than 65 Trend CVP Forced diuresis Trend lactates Cardiology consult: Dr. Moraes Aspirin Heparin drip Renal: Acute Kidney Injury Place Laura -- Strict I/Os Lasix 100 mg IV 1 on 12/18, 20mg IV daily Trend on daily BMP FEN/GI: Acute protein calorie malnutrition-moderate Acute intravascular volume overload N.p.o. Place orogastric tube ICU electrolyte protocol Daily BMP Heme/ID: Heparin drip No infectious etiology suspected this time Daily CBC Endocrine: Hyperglycemia of critical illness -- SSI Prophylaxis: GI Prophylaxis Pepcid DVT Prophylaxis -- SCDs Heparin drip Lines: 12/18 right radial arterial line 12/18 right subclavian triple-lumen catheter 12/18 Laura Dispo: Admit to ICU. Very critically ill. This patient remains critically ill with one or more organ systems which are or may become a threat to life. I have spent in excess of 35 minutes discontinuously in the care and management of this patient. This time is exclusive of procedures, and includes, but is not limited to, evaluation of the patient, review of the medical record, discussions with family, consultants, nursing staff, or respiratory therapy, and documentation in the medical record. Han Napoles MD Dec 19, 2017 19:03
[2017-12-20] VITALS (23 sets, daily range): BP systolic 92–123; BP diastolic 53–70; PULSE 84–93; RESP 18–21; TEMP 98.1–98.6; O2SAT 93–98
[2017-12-20] MEDS: PROPOFOL 1000 MG/100 ML INJ 100 ML IV PRN ×4 (03:10→23:44)
[2017-12-20] MEDS: RESP: ALBUTEROL 2.5 MG/IPRATROPIUM 0.5 MG NEB (SCH) INH ×4 (04:06→21:40)
[2017-12-20 04:12] LABS: AUTOMATED NEUTROPHIL # 7.4 TH/MM3 (1.8-7.7); BASOPHIL % 0.1 % (0.0-2.0); EOSINOPHIL % 0.3 % (0.0-4.0); HEMATOCRIT 24.4 % (39.0-51.0); HEMOGLOBIN 8.2 GM/DL (13.0-17.0); LYMPH % 10.9 % (9.0-44.0); MEAN CELL VOLUME 97.4 FL (80.0-100.0); MEAN CORPUSCULAR HEMOGLOBIN 32.9 PG (27.0-34.0); MEAN CORPUSCULAR HGB CONC 33.7 % (32.0-36.0); MEAN PLATELET VOLUME 7.3 FL (7.0-11.0); MONO % 8.4 % (0.0-8.0); MONOCYTE # 0.8 TH/MM3 (0-0.9); NEUT % 80.3 % (16.0-70.0); PLATELET COUNT 107 TH/MM3 (150-450); RED CELL DISTRIBUTION WIDTH 15.4 % (11.6-17.2); WHITE BLOOD COUNT 9.3 TH/MM3 (4.0-11.0)
[2017-12-20 04:58] LABS: ALBUMIN 2.5 GM/DL (3.4-5.0); ALKALINE PHOSPHATASE 300 U/L (45-117); ALT (GPT) 290 U/L (12-78); AST (GOT) 267 U/L (15-37); BICARBONATE 26.4 MEQ/L (21.0-32.0); BLOOD UREA NITROGEN 56 MG/DL (7-18); CALCIUM 8.4 MG/DL (8.5-10.1); CHLORIDE 102 MEQ/L (98-107); CREATININE 2.52 MG/DL (0.60-1.30); GLOMERULAR FILTRATION RATE 25 ML/MIN (>89); GLUCOSE,RANDOM 141 MG/DL (74-106); SODIUM (NA) 138 MEQ/L (136-145); TOTAL BILIRUBIN ADULT 0.9 MG/DL (0.2-1.0); TOTAL PROTEIN 7.3 GM/DL (6.4-8.2)
[2017-12-20] MEDS: INSULIN ASPART SUPPLEMENTAL SCALE SQ SCH ×3 (06:00→16:46)
[2017-12-20] MEDS: MILRINONE INJ 20 MG in SODIUM CHLORIDE 0.9% INJ 80 ML IV SCH ×2 (06:23→16:46)
[2017-12-20] MEDS: INSULIN DETEMIR 100 UNITS/ML VIAL SQ SCH ×2 (09:00→21:00)
[2017-12-20] MEDS: ASPIRIN 325 MG TAB PO SCH (10:02)
[2017-12-20] MEDS: CHLORHEXIDINE 0.12% (ORAL KIT) 15 ML CUP MT SCH ×2 (10:03→21:07)
[2017-12-20] MEDS: FUROSEMIDE 20 MG/2 ML VIAL IV PUSH SCH (10:03)
[2017-12-20 10:57] LABS: HEMATOCRIT 39.1 % (39.0-51.0); HEMOGLOBIN 13.1 GM/DL (13.0-17.0)
--- NOTE | 2017-12-20 13:55 | HHI.CCPN ---
Subjective Remarks/Hospital Course 12/18: This is a 72-year-old male with a history of ischemic cardiomyopathy and reported EF of 30% EMS for acute shortness of breath 1 day. He was acutely hypoxic in the emergency department. Initially placed on BiPAP but started vomiting into the BiPAP mask and so was emergently intubated. Chest x-ray suggestive of volume overload and pulmonary edema. Troponin elevated at 0.07. BNP elevated at 1100. Creatinine elevated 2.16. When I evaluated the patient he was intubated and sedated. No additional information is available from the patient. ROS unobtainable. Post intubation, he was hypotensive. I emergently placed arterial and central lines. Started norepinephrine. Performed bedside critical care ultrasound which demonstrates severe global left ventricular dysfunction with an EF much less than 20% at this point. Severe RV dysfunction and dilation as well. IVC dilated at greater than 2-1/2 cm without any respiratory variation. Spontaneous echo contrast seen in the IVC and right atrium. No pericardial effusion. I give 100 mg of IV Lasix and started milrinone infusion. Lactate is elevated at 3.5. 12/19: Sedated, orally intubated on mechanical ventilation. 12/20: Remains sedated, orally intubated on mechanical ventilation. Objective Vital Signs Date Time Temp Pulse Resp B/P (MAP) Pulse Ox O2 Delivery O2 Flow Rate FiO2 12/20/17 12:11 95 40 12/20/17 06:23 92 94/56 12/20/17 04:00 98.5 18 12/18/17 08:28 Ventilator 12/18/17 00:57 4.00 Intake and Output 12/20/17 12/20/17 12/21/17 08:00 16:00 00:00 Intake Total 290 ml Output Total 1200 ml Balance -910 ml Result Diagram: 12/20/17 1040 12/20/17 0400 Other Results Microbiology Date/Time Source Procedure Growth Status 12/18/17 03:50 Sputum Endotracheal Gram Stain - Final Complete 12/18/17 03:50 Sputum Endotracheal Sputum Culture - Final HEAVY GROWTH NORMAL RESPIRATORY MAGUI Complete Laboratory Tests Test 12/20/17 10:49 Blood Gas Puncture Site ART LINE Blood Gas Patient Temperature 98.6 Blood Gas HCO3 23 mmol/L (22-26) Blood Gas Base Excess -1.1 mmol/L (-2-2) Blood Gas Oxygen Saturation 94 % (90-100) Arterial Blood pH 7.39 (7.380-7.420) Arterial Blood Partial Pressure CO2 40 mmHg (38-42) Arterial Blood Partial Pressure O2 89 mmHg (61-120) Arterial Blood Oxygen Content 16.0 Vol % (12.0-20.0) Arterial Blood Carboxyhemoglobin 1.0 % (0-4) Arterial Blood Methemoglobin 1.4 % (0-2) Blood Gas Hemoglobin 12.0 G/DL (12.0-16.0) Oxygen Delivery Device VENTILATOR Blood Gas Ventilator Setting Blood Gas Inspired Oxygen 40 % Imaging Last Impressions Chest X-Ray 12/18/17 0049 Signed Impressions: CONCLUSION: Mild pulmonary edema. Objective Remarks GENERAL: Frail elderly male, lying in bed, intubated, sedated, critically ill HEENT: Normocephalic. Atraumatic. Pupils equal, round, reactive, conjugate. Mucous membranes are moist NECK: Trachea is midline. Positive JVD up above the level of the mandible CHEST: Equal chest rise. PRVC. 100% FiO2. PEEP of 10. CARDIOVASCULAR: Normal rate, irregularly irregular rhythm. A. fib by telemetry. ABDOMEN: Soft, nontender, nondistended. No guarding. MUSCULOSKELETAL: Pulses 1+. No peripheral edema. Extremities are cool and poorly perfused NEUROLOGICAL: RASS -3. intubated and sedated. Does not follow commands. Moves all extremities spontaneously. A/P Assessment and Plan Assessment: 72-year-old male with ischemic cardiomyopathy who presents with acute hypoxic respiratory failure most likely secondary to acute congestive heart failure exacerbation, systolic type. Is unclear to me if this is secondary to a primary ischemic event or whether his troponin elevation is secondary to type II demand ischemia. Will start heparinization and aspirin therapy and trend his troponins. He is very clearly in cardiogenic shock and will need inotropic therapy. We will start milrinone and norepinephrine. Forced diuresis. Very critically ill, and given age and multiple medical comorbidities, this could be a fatal acute hospitalization for him. Plan by systems: Neurologic: Acute metabolic encephalopathy Frequent neurochecks Propofol for goal RASS -2 Avoid long-acting sedatives Respiratory: Acute hypoxic respiratory failure Acute pulmonary edema Wean FiO2 for goal SPO2 greater than 90% Nebs Head of bed elevated Keep PEEP elevated at 10 Vent bundle No SBT today given cardiogenic shock Trend ABG Cardiovascular: Acute pulmonary edema Ischemic cardiomyopathy with a reported EF of 30% Cardiogenic shock Acute non-ST elevation myocardial infarction: Unclear if type I versus type II Acute severe systolic congestive heart failure exacerbation Trend troponins milrinone at 0.375 mcg/kg/min Norepinephrine for goal map greater than 65 Trend CVP Forced diuresis Trend lactates Cardiology consulted Aspirin Heparin drip Renal: Acute Kidney Injury Continue Laura -- Strict I/Os Lasix 100 mg IV 1 on 12/18, 20mg IV daily Trend on daily BMP FEN/GI: Acute protein calorie malnutrition-moderate Acute intravascular volume overload orogastric tube Start tube feeds and advance to goal as tolerated ICU electrolyte protocol Daily BMP Heme/ID: Heparin drip No infectious etiology suspected this time Daily CBC Endocrine: Hyperglycemia of critical illness -- SSI Prophylaxis: GI Prophylaxis Pepcid DVT Prophylaxis -- SCDs Heparin drip Lines: 12/18 right radial arterial line 12/18 right subclavian triple-lumen catheter 12/18 Laura Dispo: Admit to ICU. Very critically ill. Palliative care following to assist with deciding goals of therapy. Patient is alternate code. This patient remains critically ill with one or more organ systems which are or may become a threat to life. I have spent in excess of 35 minutes discontinuously in the care and management of this patient. This time is exclusive of procedures, and includes, but is not limited to, evaluation of the patient, review of the medical record, discussions with family, consultants, nursing staff, or respiratory therapy, and documentation in the medical record. Han Napoles MD Dec 20, 2017 13:55
[2017-12-20] MEDS: DOPamine 800 MG/500 ML INJ 500 ML IV PRN (16:45)
[2017-12-21] VITALS (23 sets, daily range): BP systolic 85–122; BP diastolic 49–75; PULSE 80–122; RESP 18–28; TEMP 97.9–101.9; O2SAT 91–98
[2017-12-21] MEDS: RESP: ALBUTEROL 2.5 MG/IPRATROPIUM 0.5 MG NEB (SCH) INH ×4 (03:57→20:14)
[2017-12-21] MEDS: MILRINONE INJ 20 MG in SODIUM CHLORIDE 0.9% INJ 80 ML IV SCH ×2 (04:04→16:58)
[2017-12-21] MEDS: INSULIN ASPART SUPPLEMENTAL SCALE SQ SCH ×4 (06:00→16:57)
[2017-12-21] MEDS: PROPOFOL 1000 MG/100 ML INJ 100 ML IV PRN ×2 (07:01→21:12)
[2017-12-21] MEDS: ASPIRIN 325 MG TAB PO SCH (07:40)
[2017-12-21] MEDS: FUROSEMIDE 20 MG/2 ML VIAL IV PUSH SCH (07:40)
[2017-12-21] MEDS: INSULIN DETEMIR 100 UNITS/ML VIAL SQ SCH ×2 (07:45→20:46)
[2017-12-21] MEDS ORDERED: VANCOMYCIN INJ 1,250 MG in SODIUM CHLOR 0.9% 250 ML INJ 250 ML IV ONE (07:45)
[2017-12-21] MEDS ORDERED: Vancomycin Consult Pharmacy 1 EA OTHER SCH (07:45)
--- NOTE | 2017-12-21 07:46 | HHI.CCPN ---
Subjective Remarks/Hospital Course 12/18: This is a 72-year-old male with a history of ischemic cardiomyopathy and reported EF of 30% EMS for acute shortness of breath 1 day. He was acutely hypoxic in the emergency department. Initially placed on BiPAP but started vomiting into the BiPAP mask and so was emergently intubated. Chest x-ray suggestive of volume overload and pulmonary edema. Troponin elevated at 0.07. BNP elevated at 1100. Creatinine elevated 2.16. When I evaluated the patient he was intubated and sedated. No additional information is available from the patient. ROS unobtainable. Post intubation, he was hypotensive. I emergently placed arterial and central lines. Started norepinephrine. Performed bedside critical care ultrasound which demonstrates severe global left ventricular dysfunction with an EF much less than 20% at this point. Severe RV dysfunction and dilation as well. IVC dilated at greater than 2-1/2 cm without any respiratory variation. Spontaneous echo contrast seen in the IVC and right atrium. No pericardial effusion. I give 100 mg of IV Lasix and started milrinone infusion. Lactate is elevated at 3.5. 12/19: Sedated, orally intubated on mechanical ventilation. 12/20: Remains sedated, orally intubated on mechanical ventilation. 12/21: febrile. back on vasopressors. no improvements since admission. Objective Vital Signs Date Time Temp Pulse Resp B/P (MAP) Pulse Ox O2 Delivery O2 Flow Rate FiO2 12/21/17 06:00 100 12/21/17 04:50 96 40 12/21/17 04:04 119/57 12/21/17 04:00 98.1 18 12/18/17 08:28 Ventilator 12/18/17 00:57 4.00 Intake and Output 12/21/17 12/21/17 12/22/17 08:00 16:00 00:00 Intake Total 240 ml Output Total 1000 ml Balance -760 ml Result Diagram: 12/20/17 1040 12/20/17 0400 Other Results Laboratory Tests Test 12/20/17 10:49 Blood Gas Puncture Site ART LINE Blood Gas Patient Temperature 98.6 Blood Gas HCO3 23 mmol/L (22-26) Blood Gas Base Excess -1.1 mmol/L (-2-2) Blood Gas Oxygen Saturation 94 % (90-100) Arterial Blood pH 7.39 (7.380-7.420) Arterial Blood Partial Pressure CO2 40 mmHg (38-42) Arterial Blood Partial Pressure O2 89 mmHg (61-120) Arterial Blood Oxygen Content 16.0 Vol % (12.0-20.0) Arterial Blood Carboxyhemoglobin 1.0 % (0-4) Arterial Blood Methemoglobin 1.4 % (0-2) Blood Gas Hemoglobin 12.0 G/DL (12.0-16.0) Oxygen Delivery Device VENTILATOR Blood Gas Ventilator Setting Blood Gas Inspired Oxygen 40 % Imaging Last Impressions Chest X-Ray 12/18/17 0049 Signed Impressions: CONCLUSION: Mild pulmonary edema. Objective Remarks GENERAL: Frail elderly male, lying in bed, intubated, sedated, critically ill HEENT: Normocephalic. Atraumatic. Pupils equal, round, reactive, conjugate. Mucous membranes are moist NECK: Trachea is midline. no JVD today. CHEST: Equal chest rise. PRVC. CARDIOVASCULAR: Normal rate, irregularly irregular rhythm. A. fib by telemetry. CVP 1 ABDOMEN: Soft, nontender, nondistended. No guarding. MUSCULOSKELETAL: Pulses 1+. No peripheral edema. Extremities are cool and poorly perfused NEUROLOGICAL: RASS -3. intubated and sedated. Does not follow commands. Moves all extremities spontaneously. A/P Assessment and Plan Assessment: 72-year-old male with ischemic cardiomyopathy who presents with acute hypoxic respiratory failure most likely secondary to acute congestive heart failure exacerbation, systolic type. Cardiogenic shock continues as does volume overload and respiratory failure. New fever and leukocytosis is very worrisome and he may be developing some component of septic shock. will rice culture and start empiric abx. Very critically ill, and given age and multiple medical comorbidities, this could be a fatal acute hospitalization for him. Plan by systems: Neurologic: Acute metabolic encephalopathy Frequent neurochecks Propofol for goal RASS -2 Avoid long-acting sedatives Respiratory: Acute hypoxic respiratory failure Acute pulmonary edema Wean FiO2 for goal SPO2 greater than 90% Nebs Head of bed elevated Vent bundle No SBT today given persistent shock Cardiovascular: Acute pulmonary edema Ischemic cardiomyopathy with a reported EF of 30% Cardiogenic shock Possibly early septic shock Acute non-ST elevation myocardial infarction: Unclear if type I versus type II Acute severe systolic congestive heart failure exacerbation Trend troponins milrinone decrease to 0.25 mcg/kg/min Norepinephrine for goal map greater than 65 Trend CVP Forced diuresis Trend lactates Cardiology consulted Aspirin Heparin drip Renal: Acute Kidney Injury Continue Laura -- Strict I/Os lasix 20mg iv daily Trend on daily BMP FEN/GI: Acute protein calorie malnutrition-severe Acute intravascular volume overload orogastric tube TF at goal. ICU electrolyte protocol Daily BMP Heme/ID: Leukocytosis Heparin drip rice culture vancomycin and zosyn Daily CBC Endocrine: Hyperglycemia of critical illness -- SSI Prophylaxis: GI Prophylaxis Pepcid DVT Prophylaxis -- SCDs Heparin drip Lines: 12/18 right radial arterial line 12/18 right subclavian triple-lumen catheter 12/18 Laura Dispo: Admit to ICU. Very critically ill. Palliative care following to assist with deciding goals of therapy. Patient is alternate code. This patient remains critically ill with one or more organ systems which are or may become a threat to life. I have spent in excess of 41 minutes discontinuously in the care and management of this patient. This time is exclusive of procedures, and includes, but is not limited to, evaluation of the patient, review of the medical record, discussions with family, consultants, nursing staff, or respiratory therapy, and documentation in the medical record. Rivas Leavitt MD Dec 21, 2017 07:46
[2017-12-21] MEDS: CHLORHEXIDINE 0.12% (ORAL KIT) 15 ML CUP MT SCH ×2 (07:47→20:43)
[2017-12-21 08:52] LABS: HEMATOCRIT 41.1 % (39.0-51.0); HEMOGLOBIN 13.7 GM/DL (13.0-17.0); MEAN CELL VOLUME 96.3 FL (80.0-100.0); MEAN CORPUSCULAR HEMOGLOBIN 32.2 PG (27.0-34.0); MEAN CORPUSCULAR HGB CONC 33.5 % (32.0-36.0); MEAN PLATELET VOLUME 8.2 FL (7.0-11.0); PLATELET COUNT 185 TH/MM3 (150-450); RED BLOOD COUNT 4.26 MIL/MM3 (4.50-5.90); RED CELL DISTRIBUTION WIDTH 15.9 % (11.6-17.2); WHITE BLOOD COUNT 11.3 TH/MM3 (4.0-11.0)
[2017-12-21 09:00] LABS: AMORPHOUS SEDIMENT, URINE OCC; BACTERIA, URINE MOD /hpf; BILIRUBIN, URINE NEG (NEG); BLOOD, URINE MOD (NEG); GLUCOSE,URINE NEG (NEG); KETONE, URINE NEG (NEG); MUCUS URINE FEW /lpf (OCC); NITRITE,URINE NEG (NEG); PH, URINE 7.5 (5.0-8.5); SQUAMOUS EPITHELIAL CELL URINE <1 /hpf (0-5); URINE COLOR LIGHT-YELLOW (YELLW/STRAW); URINE LEUKOCYTE ESTERASE LARGE (NEG)
[2017-12-21] MEDS: PIPERACIL-TAZO 3.375 GM PREMIX 50 ML IV SCH ×2 (09:13→16:57)
[2017-12-21] MEDS: FAMOTIDINE 20 MG TAB PO SCH ×2 (09:13→20:43)
[2017-12-21] MEDS ORDERED: ALBUMIN 25% INJ 100 ML IV ONE (09:15)
[2017-12-21 09:17] LABS: ALBUMIN 2.5 GM/DL (3.4-5.0); AST (GOT) 348 U/L (15-37); BICARBONATE 23.2 MEQ/L (21.0-32.0); BLOOD UREA NITROGEN 46 MG/DL (7-18); CALCIUM 8.9 MG/DL (8.5-10.1); CHLORIDE 104 MEQ/L (98-107); CREATININE 1.74 MG/DL (0.60-1.30); GLOMERULAR FILTRATION RATE 39 ML/MIN (>89); GLUCOSE,RANDOM 154 MG/DL (74-106); SODIUM (NA) 138 MEQ/L (136-145)
[2017-12-21 09:18] LABS: ALT (GPT) 375 U/L (12-78)
[2017-12-21 09:21] LABS: ALKALINE PHOSPHATASE 313 U/L (45-117); TOTAL BILIRUBIN ADULT 1.4 MG/DL (0.2-1.0); TOTAL PROTEIN 7.6 GM/DL (6.4-8.2)
[2017-12-21 09:25] LABS: INTERNATIONAL NORMALIZED RATIO 1.1 RATIO; PROTHROMBIN TIME - PATIENT 11.4 SEC (9.8-11.6)
[2017-12-21] MEDS ORDERED: VANCOMYCIN 1,500 MG/NS 500 ML IV ONE ×2 (10:00)
[2017-12-21] MEDS: NOREPINEPHRINE INJ 4 MG in SODIUM CHLOR 0.9% 250 ML INJ 246 ML IV PRN (10:22)
[2017-12-21] MEDS: HEPARIN-D5W 25,000 U/250 ML 250 ML IV PRN (13:57)
[2017-12-21] MEDS: DOPamine 800 MG/500 ML INJ 500 ML IV PRN (23:24)
[2017-12-22] VITALS (21 sets, daily range): BP systolic 49–119; BP diastolic 23–71; PULSE 74–98; RESP 14–22; TEMP 98.1–100.5; O2SAT 60–98
[2017-12-22] MEDS: PIPERACIL-TAZO 3.375 GM PREMIX 50 ML IV SCH ×2 (00:13→09:29)
[2017-12-22] MEDS: NOREPINEPHRINE INJ 4 MG in SODIUM CHLOR 0.9% 250 ML INJ 246 ML IV PRN (01:02)
[2017-12-22] MEDS: PROPOFOL 1000 MG/100 ML INJ 100 ML IV PRN ×3 (04:45→13:28)
[2017-12-22] MEDS: RESP: ALBUTEROL 2.5 MG/IPRATROPIUM 0.5 MG NEB (SCH) INH ×3 (05:15→16:00)
[2017-12-22] MEDS: INSULIN ASPART SUPPLEMENTAL SCALE SQ SCH ×3 (06:00→12:00)
[2017-12-22 06:50] LABS: HEMATOCRIT 38.6 % (39.0-51.0); MEAN CELL VOLUME 97.1 FL (80.0-100.0); MEAN CORPUSCULAR HEMOGLOBIN 32.7 PG (27.0-34.0); MEAN CORPUSCULAR HGB CONC 33.7 % (32.0-36.0); MEAN PLATELET VOLUME 7.8 FL (7.0-11.0); PLATELET COUNT 149 TH/MM3 (150-450); RED BLOOD COUNT 3.98 MIL/MM3 (4.50-5.90); RED CELL DISTRIBUTION WIDTH 15.5 % (11.6-17.2); WHITE BLOOD COUNT 18.8 TH/MM3 (4.0-11.0)
[2017-12-22 07:10] LABS: BICARBONATE 24.6 MEQ/L (21.0-32.0); CALCIUM 8.5 MG/DL (8.5-10.1); CREATININE 1.69 MG/DL (0.60-1.30)
[2017-12-22] MEDS: INSULIN DETEMIR 100 UNITS/ML VIAL SQ SCH (09:00)
[2017-12-22] MEDS: CHLORHEXIDINE 0.12% (ORAL KIT) 15 ML CUP MT SCH ×2 (09:29→20:00)
[2017-12-22] MEDS: FUROSEMIDE 20 MG/2 ML VIAL IV PUSH SCH (09:30)
[2017-12-22] MEDS: FAMOTIDINE 20 MG TAB PO SCH (09:30)
[2017-12-22] MEDS: ASPIRIN 325 MG TAB PO SCH (09:30)
[2017-12-22] MEDS ORDERED: VANCOMYCIN INJ 1,500 MG in SODIUM CHLORID 0.9% 500 ML INJ 500 ML IV ONE (12:00)
--- NOTE | 2017-12-22 12:02 | HHI.CCPN ---
Subjective Remarks/Hospital Course 12/18: This is a 72-year-old male with a history of ischemic cardiomyopathy and reported EF of 30% EMS for acute shortness of breath 1 day. He was acutely hypoxic in the emergency department. Initially placed on BiPAP but started vomiting into the BiPAP mask and so was emergently intubated. Chest x-ray suggestive of volume overload and pulmonary edema. Troponin elevated at 0.07. BNP elevated at 1100. Creatinine elevated 2.16. When I evaluated the patient he was intubated and sedated. No additional information is available from the patient. ROS unobtainable. Post intubation, he was hypotensive. I emergently placed arterial and central lines. Started norepinephrine. Performed bedside critical care ultrasound which demonstrates severe global left ventricular dysfunction with an EF much less than 20% at this point. Severe RV dysfunction and dilation as well. IVC dilated at greater than 2-1/2 cm without any respiratory variation. Spontaneous echo contrast seen in the IVC and right atrium. No pericardial effusion. I give 100 mg of IV Lasix and started milrinone infusion. Lactate is elevated at 3.5. 12/19: Sedated, orally intubated on mechanical ventilation. 12/20: Remains sedated, orally intubated on mechanical ventilation. 12/21: febrile. back on vasopressors. no improvements since admission. 12/22 Patient remains intubated and sedated. On Primacor, Levophed and Dopamine. Afebrile. On Heparin drip. Objective Vital Signs Date Time Temp Pulse Resp B/P (MAP) Pulse Ox O2 Delivery O2 Flow Rate FiO2 12/22/17 10:00 81 19 107/63 (78) 95 107/53 (71) 12/22/17 08:55 40 12/22/17 08:00 98.6 12/18/17 08:28 Ventilator Intake and Output 12/22/17 12/22/17 12/23/17 08:00 16:00 00:00 Intake Total 602 ml Output Total 950 ml Balance -348 ml Result Diagram: 12/22/17 0630 12/22/17 0630 Other Results Laboratory Tests Test 12/21/17 18:20 12/22/17 00:00 12/22/17 05:00 12/22/17 06:30 Activated Partial Thromboplast Time 43.4 SEC 48.1 SEC 50.8 SEC Random Vancomycin Level 7.5 COMMENT White Blood Count 18.8 TH/MM3 Red Blood Count 3.98 MIL/MM3 Hemoglobin 13.0 GM/DL Hematocrit 38.6 % Mean Corpuscular Volume 97.1 FL Mean Corpuscular Hemoglobin 32.7 PG Mean Corpuscular Hemoglobin Concent 33.7 % Red Cell Distribution Width 15.5 % Platelet Count 149 TH/MM3 Mean Platelet Volume 7.8 FL Blood Urea Nitrogen 37 MG/DL Creatinine 1.69 MG/DL Random Glucose 125 MG/DL Calcium Level 8.5 MG/DL Sodium Level 139 MEQ/L Potassium Level 4.6 MEQ/L Chloride Level 104 MEQ/L Carbon Dioxide Level 24.6 MEQ/L Anion Gap 10 MEQ/L Estimat Glomerular Filtration Rate 40 ML/MIN Imaging Last Impressions Chest X-Ray 12/18/17 0049 Signed Impressions: CONCLUSION: Mild pulmonary edema. Objective Remarks GENERAL: Frail elderly male, lying in bed, intubated, sedated, critically ill HEENT: Normocephalic. Atraumatic. Pupils equal, round, reactive, conjugate. Mucous membranes are moist NECK: Trachea is midline. no JVD today. CHEST: Equal chest rise. PRVC. CARDIOVASCULAR: Normal rate, irregularly irregular rhythm. A. fib by telemetry. CVP 1 ABDOMEN: Soft, nontender, nondistended. No guarding. MUSCULOSKELETAL: Pulses 1+. No peripheral edema. Extremities are cool and poorly perfused NEUROLOGICAL: RASS -3. intubated and sedated. Does not follow commands. Moves all extremities spontaneously. A/P Assessment and Plan Assessment: 72-year-old male with ischemic cardiomyopathy who presents with acute hypoxic respiratory failure most likely secondary to acute congestive heart failure exacerbation, systolic type. Cardiogenic shock continues as does volume overload and respiratory failure. New fever and leukocytosis is very worrisome and he may be developing some component of septic shock. will rice culture and start empiric abx. Very critically ill, and given age and multiple medical comorbidities, this could be a fatal acute hospitalization for him. Plan by systems: Neurologic: Acute metabolic encephalopathy Frequent neurochecks Propofol for goal RASS -2. Daily sedation vacation Respiratory: Acute hypoxic respiratory failure Acute pulmonary edema Continue with vent support keep sats >92% Bronchodilators, ICU vent bundle, SBT daily when clinically appropriate Cardiovascular: Acute pulmonary edema Ischemic cardiomyopathy with a reported EF of 30% Cardiogenic shock Possibly early septic shock Acute non-ST elevation myocardial infarction: Unclear if type I versus type II Acute severe systolic congestive heart failure exacerbation Wean off pressors as aubrie ( On Levophed, Milrinone, Dopamine) keep MAP>65mmHg Lactic acid 1.3 Echo 12/18, EF 20-25% Place on stress dose steroids -HC 50mg IV Q6 Renal: Acute Kidney Injury Monitor renal function, I/O's, avoid nephrotoxins Cr: 1.69 today from 1.74, UOP:2950ml in 24 hrs d/c Lasix FEN/GI: Acute protein calorie malnutrition-severe Elevated LFT's Monitor LFT's, check US liver, Hepatitis profile Continue tube feeds- Glucerna 1.5 with goal rate 50ml/hr ID: Leukocytosis Continue with abx ( Vanco, Zosyn) monitor for signs of infections ( Fever, WBC) Follow up on cultures heme: Monitor CBC, coags- On Heparin drip Endocrine: Hyperglycemia of critical illness -- SSI, hold Levemir Prophylaxis: GI Prophylaxis Pepcid DVT Prophylaxis -- SCDs Heparin drip Lines: 12/18 right radial arterial line 12/18 right subclavian triple-lumen catheter 12/18 Laura Palliative care following to assist with deciding goals of therapy. Patient is alternate code. CCT 30 mins Hillary Manley MD Dec 22, 2017 12:02
[2017-12-22 13:34] LABS: ALBUMIN 2.3 GM/DL (3.4-5.0); INDIRECT BILIRUBIN 0.7 MG/DL (0.0-0.8); TOTAL BILIRUBIN ADULT 3.7 MG/DL (0.2-1.0); TOTAL PROTEIN 7.5 GM/DL (6.4-8.2)
--- NOTE | 2017-12-22 14:47 | RADRPT ---
EXAM DATE: 12/22/2017 2:39 PM EDT AGE/SEX: 72 years / Male INDICATIONS: Elevated liver function tests. CLINICAL DATA: This is the patient's initial encounter. Patient reports that signs and symptoms have been present for 1 day and indicates a pain score of Nonresponsive. MEDICAL/SURGICAL HISTORY: . [place]. CHF. Hypercholesterol. Hypertension. COPD. Diabetic. . Ca rdiac stent. Pacemaker. [place] [facility] [place]AST, 12/15/2016. . No external comparison. MEASUREMENTS (cm x cm x cm): Liver:__ 16.2 cm length Common Bile Duct:__ 5mm Right Kidney:__ 10.7 x 5.1 x 4.8 cm FINDINGS: Liver: Normal echotexture without focal lesion or ductal dilatation. Portal Vein: Hepatopedal flow seen in portal vein. Common Duct: No intraluminal mass or stone visualized. Gallbladder: Demonstrates no wall thickening or pericholecystic fluid. No stones visualized. Gallbla dder Wall: 2 mm Pancreas: The visualized portions are within normal limits Right Kidney: No mass or hydronephrosis Other: Spleen is mildly enlarged measuring 13.3 cm in length. CONCLUSION: 1. No abnormality is identified to explain the elevated LFTs. However, prior CT suggest mild steatos is. 2. Mild splenomegaly. Electronically signed by: Felice Wisdom MD 12/22/2017 2:45 PM EDT
--- NOTE | 2017-12-22 17:07 | HHI.HCPN ---
Reason for visit a. To assist with evaluation and management of symptoms including: dyspnea, pain b. To assist medical decision maker(s) with: better understanding of current medical conditions; weighing benefits/burdens of medical treatment options; making medical treatment decisions. . (Vanessa Granado) Subjective/Interval History Patient with history of nonischemic cardiomyopathy, stent to the LAD (placed in 2014), baseline 25-30%, EKG with ST elevation in the in anterior leads on arrival to . Cardiology suspects initial elevated troponin was related to hypoxia secondary to COPD, as well as hypotension with recommendation for continued medical management. Not a candidate for cardiac cath due to critical condition. Patient seen and examined in ICU. , daughter and friend at bedside. Discussed with nurse, Shwetha and Dr. Higuera. Patient remains intubated, sedated on propofol and mechanically ventilated. FiO2 40% and PEEP 5. Remains on Levophed, Dopamine, Milrinone and Heparin drip. Tmax 101. WBC has increased to 18.8. Urine culture gram negative rods. Blood culture pending. Heart rate 70-100, irregular rhythm with increasing runs of V. Tach today. * BUN: 36, creatinine 1.69 * Total bilirubin has increased from 1.4 to 3.7. AST 135, ALT 237, Alk phos 254 * Albumin 2.3 * Liver ultrasound pending. * Cultures pending. * Hepatitis panel nonreactive. . Family/friend interactions 3pm: Spoke with patient's (Brandy Calero) and daughter (Carmen) at bedside. Also present family friend. is asking if patient "will ever return home?" She tells me if not she needs to know. I provided a medical update. Reviewed my concern for amount of cardiac support he is requiring, runs of V. Tach and explained his heart could stop if this persists or worsens. Brandy Calero tells me if this happens, she wants me to promise he will be comfortable. I advised of pending tests and concern for worsening bilirubin. We agreed to talk again to review test results in hopes I will be better able to further prognosticate. Family understands he remains in critical condition and that he may not survive this hospitalization. She is very appreciative of update. She is asking questions about comfort measures. I advised if family elects to transition to comfort with compassionate withdrawal of life support our team will be here to ensure his comfort, which she is very concerned about his comfort and dignity. Questions answered. Nurse and Dr. Higuera notified of conversation. I would anticipate if no clinical improvement, they may transition to comfort. 4:15pm: Call from nurse to report family is now requesting transition to comfort measures. Notified I am out of the building, Dr. Crane will meet family to further clarify goals and assist as needed. . (Vanessa Granado) Advance Directives Advance Directive Specifics Documented care wishes: Patient's states she thinks written advanced directive were completed; she is attempting to locate documents. . Significant change in goals: Alternate Code - Intubation only. Now considering transition to comfort. . (Vanessa Granado) Objective Vital Signs Date Time Temp Pulse Resp B/P (MAP) Pulse Ox O2 Delivery O2 Flow Rate FiO2 12/22/17 16:15 98 40 12/22/17 15:00 78 12/22/17 14:00 84 12/22/17 14:00 76 110/66 (81) 102/53 (69) 12/22/17 13:22 94 40 12/22/17 13:00 84 12/22/17 13:00 84 22 107/69 (82) 95 116/59 (78) 12/22/17 12:00 98.9 88 19 115/69 (84) 96 114/58 (76) 12/22/17 12:00 83 115/69 (84) 108/59 (75) 12/22/17 12:00 40 12/22/17 12:00 88 12/22/17 10:00 81 19 107/63 (78) 95 107/53 (71) 12/22/17 10:00 81 12/22/17 10:00 107/63 (78) 97/51 (66) 12/22/17 09:00 74 12/22/17 09:00 74 19 119/67 (84) 96 111/59 (76) 12/22/17 08:55 95 40 12/22/17 08:00 79 107/63 (78) 108/55 (72) 12/22/17 08:00 75 12/22/17 08:00 40 12/22/17 08:00 98.6 75 20 112/68 (83) 96 118/57 (77) 12/22/17 06:00 76 12/22/17 05:15 96 40 12/22/17 04:00 99.6 78 21 115/69 (84) 96 117/58 (77) 12/22/17 04:00 78 12/22/17 04:00 40 12/22/17 02:31 82 96/46 12/22/17 02:09 76 126/62 12/22/17 02:00 74 12/22/17 01:31 95 40 12/22/17 01:02 75 117/55 12/22/17 00:00 100.5 79 22 119/71 (87) 94 112/54 (73) 12/22/17 00:00 40 12/22/17 00:00 79 12/21/17 23:24 78 122/58 12/21/17 22:00 84 12/21/17 20:14 95 40 12/21/17 20:00 40 12/21/17 20:00 101.0 80 23 102/71 (81) 94 120/56 (77) 12/21/17 20:00 80 12/21/17 16:58 101 100/56 Intake & Output 12/22/17 12/22/17 07:00 19:00 Intake Total 793 ml 246 ml Output Total 950 ml Balance -157 ml 246 ml IV Total 793 ml 246 ml Output Urine Total 950 ml # Bowel Movements 0 Physical Exam CONSTITUTIONAL/GENERAL: This is an adequately nourished patient, currently intubated and sedated on mechanical ventilation TUBES/LINES/DRAINS: Radial arterial line, CVL, OGT, ETT, indwelling Laura catheter, PIV SKIN: No jaundice, rashes, or lesions. No wounds seen anteriorly. Skin temperature appropriate. Not diaphoretic. Generalized pallor CARDIOVASCULAR: Irregular rate and rhythm. Runs of V. tach. RESPIRATORY/CHEST: Course breath sounds. GASTROINTESTINAL: Abdomen soft, nondistended. Bowel sounds present. GENITOURINARY: Without palpable bladder distension. Laura catheter in place. MUSCULOSKELETAL: Extremities with trace edema. NEUROLOGICAL: Sedated on propofol. Does not arouse to voice. PSYCHIATRIC: Unable to assess given clinical condition. . (Vanessa Granado) Diagnostic Tests Laboratory Laboratory Tests Test 12/20/17 04:00 12/20/17 10:40 12/20/17 10:49 12/20/17 19:55 White Blood Count 9.3 TH/MM3 (4.0-11.0) Red Blood Count 2.50 MIL/MM3 (4.50-5.90) Hemoglobin 8.2 GM/DL (13.0-17.0) 13.1 GM/DL (13.0-17.0) Hematocrit 24.4 % (39.0-51.0) 39.1 % (39.0-51.0) Mean Corpuscular Volume 97.4 FL (80.0-100.0) Mean Corpuscular Hemoglobin 32.9 PG (27.0-34.0) Mean Corpuscular Hemoglobin Concent 33.7 % (32.0-36.0) Red Cell Distribution Width 15.4 % (11.6-17.2) Platelet Count 107 TH/MM3 (150-450) Mean Platelet Volume 7.3 FL (7.0-11.0) Neutrophils (%) (Auto) 80.3 % (16.0-70.0) Lymphocytes (%) (Auto) 10.9 % (9.0-44.0) Monocytes (%) (Auto) 8.4 % (0.0-8.0) Eosinophils (%) (Auto) 0.3 % (0.0-4.0) Basophils (%) (Auto) 0.1 % (0.0-2.0) Neutrophils # (Auto) 7.4 TH/MM3 (1.8-7.7) Lymphocytes # (Auto) 1.0 TH/MM3 (1.0-4.8) Monocytes # (Auto) 0.8 TH/MM3 (0-0.9) Eosinophils # (Auto) 0.0 TH/MM3 (0-0.4) Basophils # (Auto) 0.0 TH/MM3 (0-0.2) CBC Comment DIFF FINAL Differential Comment Blood Urea Nitrogen 56 MG/DL (7-18) Creatinine 2.52 MG/DL (0.60-1.30) Random Glucose 141 MG/DL (74-106) Total Protein 7.3 GM/DL (6.4-8.2) Albumin 2.5 GM/DL (3.4-5.0) Calcium Level 8.4 MG/DL (8.5-10.1) Alkaline Phosphatase 300 U/L (45-117) Aspartate Amino Transf (AST/SGOT) 267 U/L (15-37) Alanine Aminotransferase (ALT/SGPT) 290 U/L (12-78) Total Bilirubin 0.9 MG/DL (0.2-1.0) Sodium Level 138 MEQ/L (136-145) Potassium Level 5.1 MEQ/L (3.5-5.1) Chloride Level 102 MEQ/L (98-107) Carbon Dioxide Level 26.4 MEQ/L (21.0-32.0) Anion Gap 10 MEQ/L (5-15) Estimat Glomerular Filtration Rate 25 ML/MIN (>89) Blood Gas Puncture Site ART LINE Blood Gas Patient Temperature 98.6 Blood Gas HCO3 23 mmol/L (22-26) Blood Gas Base Excess -1.1 mmol/L (-2-2) Blood Gas Oxygen Saturation 94 % (90-100) Arterial Blood pH 7.39 (7.380-7.420) Arterial Blood Partial Pressure CO2 40 mmHg (38-42) Arterial Blood Partial Pressure O2 89 mmHg (61-120) Arterial Blood Oxygen Content 16.0 Vol % (12.0-20.0) Arterial Blood Carboxyhemoglobin 1.0 % (0-4) Arterial Blood Methemoglobin 1.4 % (0-2) Blood Gas Hemoglobin 12.0 G/DL (12.0-16.0) Oxygen Delivery Device VENTILATOR Blood Gas Ventilator Setting Blood Gas Inspired Oxygen 40 % Activated Partial Thromboplast Time 31.0 SEC (24.3-30.1) Test 12/21/17 03:00 12/21/17 08:12 12/21/17 10:00 12/21/17 18:20 Activated Partial Thromboplast Time 33.6 SEC (24.3-30.1) 35.7 SEC (24.3-30.1) 37.1 SEC (24.3-30.1) 43.4 SEC (24.3-30.1) White Blood Count 11.3 TH/MM3 (4.0-11.0) Red Blood Count 4.26 MIL/MM3 (4.50-5.90) Hemoglobin 13.7 GM/DL (13.0-17.0) Hematocrit 41.1 % (39.0-51.0) Mean Corpuscular Volume 96.3 FL (80.0-100.0) Mean Corpuscular Hemoglobin 32.2 PG (27.0-34.0) Mean Corpuscular Hemoglobin Concent 33.5 % (32.0-36.0) Red Cell Distribution Width 15.9 % (11.6-17.2) Platelet Count 185 TH/MM3 (150-450) Mean Platelet Volume 8.2 FL (7.0-11.0) Prothrombin Time 11.4 SEC (9.8-11.6) Prothromb Time International Ratio 1.1 RATIO Urine Color LIGHT-YELLOW (YELLW/STRAW) Urine Turbidity HAZY (CLEAR) Urine pH 7.5 (5.0-8.5) Urine Specific [place] 1.007 (1.002-1.035) Urine Protein NEG mg/dL (NEG-TRACE) Urine Glucose (UA) NEG mg/dL (NEG) Urine Ketones NEG mg/dL (NEG) Urine Occult Blood MOD (NEG) Urine Nitrite NEG (NEG) Urine Bilirubin NEG (NEG) Urine Urobilinogen LESS THAN 2.0 MG/DL (LESS Urine Leukocyte Esterase LARGE (NEG) Urine RBC 1 /hpf (0-3) Urine WBC 6 /hpf (0-5) Urine Squamous Epithelial Cells <1 /hpf (0-5) Urine Amorphous Sediment OCC Urine Bacteria MOD /hpf (NONE) Urine Mucus FEW /lpf (OCC) Microscopic Urinalysis Comment CATH-CULTURE IND Blood Urea Nitrogen 46 MG/DL (7-18) Creatinine 1.74 MG/DL (0.60-1.30) Random Glucose 154 MG/DL (74-106) Total Protein 7.6 GM/DL (6.4-8.2) Albumin 2.5 GM/DL (3.4-5.0) Calcium Level 8.9 MG/DL (8.5-10.1) Alkaline Phosphatase 313 U/L (45-117) Aspartate Amino Transf (AST/SGOT) 348 U/L (15-37) Alanine Aminotransferase (ALT/SGPT) 375 U/L (12-78) Total Bilirubin 1.4 MG/DL (0.2-1.0) Sodium Level 138 MEQ/L (136-145) Potassium Level 5.3 MEQ/L (3.5-5.1) Chloride Level 104 MEQ/L (98-107) Carbon Dioxide Level 23.2 MEQ/L (21.0-32.0) Anion Gap 11 MEQ/L (5-15) Estimat Glomerular Filtration Rate 39 ML/MIN (>89) Lactic Acid Level 1.3 mmol/L (0.4-2.0) B-Type Natriuretic Peptide 165 PG/ML (0-100) Test 12/22/17 00:00 12/22/17 05:00 12/22/17 06:30 12/22/17 12:49 Activated Partial Thromboplast Time 48.1 SEC (24.3-30.1) 50.8 SEC (24.3-30.1) Random Vancomycin Level 7.5 COMMENT White Blood Count 18.8 TH/MM3 (4.0-11.0) Red Blood Count 3.98 MIL/MM3 (4.50-5.90) Hemoglobin 13.0 GM/DL (13.0-17.0) Hematocrit 38.6 % (39.0-51.0) Mean Corpuscular Volume 97.1 FL (80.0-100.0) Mean Corpuscular Hemoglobin 32.7 PG (27.0-34.0) Mean Corpuscular Hemoglobin Concent 33.7 % (32.0-36.0) Red Cell Distribution Width 15.5 % (11.6-17.2) Platelet Count 149 TH/MM3 (150-450) Mean Platelet Volume 7.8 FL (7.0-11.0) Blood Urea Nitrogen 37 MG/DL (7-18) Creatinine 1.69 MG/DL (0.60-1.30) Random Glucose 125 MG/DL (74-106) Calcium Level 8.5 MG/DL (8.5-10.1) Sodium Level 139 MEQ/L (136-145) Potassium Level 4.6 MEQ/L (3.5-5.1) Chloride Level 104 MEQ/L (98-107) Carbon Dioxide Level 24.6 MEQ/L (21.0-32.0) Anion Gap 10 MEQ/L (5-15) Estimat Glomerular Filtration Rate 40 ML/MIN (>89) Total Bilirubin 3.7 MG/DL (0.2-1.0) Direct Bilirubin 3.0 MG/DL (0.0-0.2) Indirect Bilirubin 0.7 MG/DL (0.0-0.8) Aspartate Amino Transf (AST/SGOT) 135 U/L (15-37) Alanine Aminotransferase (ALT/SGPT) 237 U/L (12-78) Alkaline Phosphatase 254 U/L (45-117) Total Protein 7.5 GM/DL (6.4-8.2) Albumin 2.3 GM/DL (3.4-5.0) Test 12/22/17 14:36 Hepatitis A IgM Antibody NONREACTIVE (NONREACTIVE) Hepatitis B Surface Antigen NONREACTIVE (NONREACTIVE) Hepatitis B Core IgM Antibody NONREACTIVE (NONREACTIVE) Hepatitis C IgG Antibody NONREACTIVE (NONREACTIVE) (Vanessa Granado) Result Diagram: 12/22/17 0630 12/22/17 0630 Microbiology Microbiology Date/Time Source Procedure Growth Status 12/22/17 00:00 Blood Peripheral Aerobic Blood Culture Pending Received 12/22/17 00:00 Blood Peripheral Anaerobic Blood Culture Pending Received 12/21/17 09:58 Blood Peripheral Aerobic Blood Culture - Preliminary NO GROWTH IN 1 DAY Resulted 12/21/17 09:58 Blood Peripheral Anaerobic Blood Culture - Preliminary NO GROWTH IN 1 DAY Resulted 12/21/17 08:12 Sputum Endotracheal Gram Stain - Final Resulted 12/21/17 08:12 Sputum Endotracheal Sputum Culture - Preliminary HEAVY GROWTH NORMAL RESPIRATORY MAGUI... Resulted 12/21/17 08:12 Urine Catheterized Urine Urine Culture - Preliminary Gram Negative Roberto Resulted Imaging Last Impressions Liver Ultrasound 12/22/17 0000 Signed Impressions: CONCLUSION: 1. No abnormality is identified to explain the elevated LFTs. However, prior C T suggest mild steatosis. 2. Mild splenomegaly. Chest X-Ray 12/18/17 0049 Signed Impressions: CONCLUSION: Mild pulmonary edema. Procedures 12/18/2017: Intubated 12/18/2017: NGT placement 12/18/2017: Right radial arterial line placement 12/18/2017: Right subclavian central line placement . (Vanessa Granado) Assessment and Plan Disease Oriented Problem List: (1) Acute pulmonary edema (2) Cardiogenic shock (3) Acute non-ST elevation myocardial infarction (NSTEMI) (4) Acute respiratory failure with hypoxia (5) Acute metabolic encephalopathy (6) ACS (acute coronary syndrome) (7) Acute respiratory failure (8) Elevated troponin (9) Diabetes (10) Atrial fibrillation (11) Cardiomyopathy (12) History of COPD (13) Hypotension (14) Acute on chronic systolic CHF (congestive heart failure) Symptom Scale: (1) Pain 0-10 Scale: Unable to quantify (2) Dyspnea 0-10 Scale: Unable to quantify Pertinent Non-Medical Issues Psychosocial:Patient is originally from [place]. Patient his first and is currently to [place]. He has 2 children (Andrew and Carmen) with his first , and one son (Gerson) with his current . Both sons live locally. 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 Spiritual: [employer] log[employer]; attends [employer]. Legal: Per [place] statutes, in the absence of written advanced directives healthcare proxy decision making falls to the patient's . Ethical issues impacting care: No known ethical issues impacting care. . Important Contacts Charlene Lerma, : [phone] or [phone] (possibly pt. cell) . Prognosis Patient is a 72-year-old male who is critically ill with 10 more organ system which are or may become a threat to life. Given his advanced age and multiple comorbid conditions, it is possible that the patient may not survive this hospitalization. If he does survive this hospitalization he will be high risk for ongoing decline and setbacks. . Code Status: Alternative Code (Intubation only) Plan * ALTERNATE CODE-intubation only. * Decision-making: Patient is not capacitated to make his own health care decisions, uncertain if he will regain capacity. Per [place] statutes, in the absence of written advanced directives healthcare proxy decision making falls to the patient's , Brandy Calero. * Current goals are aggressive up to the point of cardiopulmonary resuscitation. Patient is an ALTERNATE CODE-intubation only. Considering transition to comfort measures if no clinical improvement. * Discussed patient with RN (Shwetha) and Dr. Higuera and Dr. Higuera. Symptom management: * Dyspnea: Patient with ischemic cardiomyopathy who presents with acute hypoxic respiratory failure most likely secondary to acute congestive heart failure exacerbation, systolic type. Is unclear to me if this is secondary to a primary ischemic event or whether his troponin elevation is secondary to type II demand ischemia. Remains intubated on mechanical vent. * Pain: Multifactoral. Possible contributing factors may include ischemic cardiomyopathy, NSTEMI, encephalopathy, infection, invasive lines, immobility, bedbound status. On Propofol. * Palliative care will follow throughout this hospitalization to establish trust , assist with symptom management and clarification of medical treatment goals. . (Vanessa Granado) Attestation To help prompt me to consider important information that might be impacting today's encounter and assessment, information from prior notes written by myself or my colleagues may have been "brought forward" into today's note. My signature on this note, however, is an attestation that I personally performed the exam, history, and/or decision-making noted today, and, unless otherwise indicated, the interactions with patient, family, and staff as well as the review of records all occurred today. I also attest that the listed assessment and stated plan reflect my best clinical judgment today based on the combination of historical information, prior notes, and today's exam/ interactions. When time spent is documented, it refers only to time spent today by the signer, or if indicated, combined time spent today by collaborating physician/nurse practitioner. (Vanessa Granado) Collaborating MD Comments Chart reviewed. Case discussed with MOLDER HAND. Above note reviewed and I concur. Following the above MOLDER HAND visit, the family decided that the patient's goals/ preferences would best be honored by foregoing further aggressive care; transitioning to comfort measures; and withdrawing life support. Pt examined personally by me: T 98.9 P84 and irregular RR 22 on vent; Trachea midline Lungs clear Irregularly irregular. No JVD noted. Extremities cool. Case discussed with Dr. Manley who is supportive of family decision. Met with proxy and extended family for 30 minutes to review process for compassionate withdrawal of life support and to offer anticipatory guidance. All questions answered. Appropriate Exhibits printed and signed. I personally wrote orders for extubation and post-extubation comfort. Clergy support offered and declined Withdrawal orders discussed with bedside nurse. Familly would like patient enrolled in hospice and transferred to a hospice care center bed if he is breathing on his own in the AM. TIME: Over 60 minutes of combined physician/MOLDER HAND time on floor with over 50% spent on counseling / coordination of care. . (Mickey Crane MD) Vanessa Granado Dec 22, 2017 17:07 Mickey Crane MD Dec 22, 2017 17:39
[2017-12-22] MEDS ORDERED: HYDROmorphone HCL PF 2 MG/ML VIAL IV PUSH ONE ×2 (17:15→17:30)
[2017-12-22] MEDS ORDERED: LORazepam 2 MG/ML VIAL IV PUSH ONE ×2 (17:15→17:30)
[2017-12-22] MEDS ORDERED: BISACODYL 10 MG SUPP RECTAL PRN (17:45)
[2017-12-22] MEDS ORDERED: LORazepam 2 MG/ML VIAL IV PUSH PRN ×3 (17:45)
[2017-12-22] MEDS ORDERED: HYDROmorphone HCL PF 2 MG/ML VIAL IV PUSH PRN (17:45)
[2017-12-22] MEDS ORDERED: ACETAMINOPHEN 650 MG SUPP RECTAL PRN (17:45)
[2017-12-22] MEDS ORDERED: FUROSEMIDE 20 MG/2 ML VIAL IV PUSH PRN (18:00)
[2017-12-22] MEDS: HYDROCORTISONE SOD SUCCINATE 100 MG VIAL IV PUSH SCH ×2 (18:00→23:19)
[2017-12-22] MEDS: HYDROmorphone HCL PF 2 MG/ML VIAL IV PUSH PRN (18:44)
[2017-12-22] MEDS: LORazepam 2 MG/ML VIAL IV PUSH SCH ×2 (20:00→23:18)
[2017-12-23] VITALS: BP_SYST 81; BP_DIAS 41; BP_DIAS 46; PULSE 100; RESP 24; TEMP 103.3; O2SAT 70
[2017-12-23 02:00] VITALS: PULSE 91
[2017-12-23] MEDS: LORazepam 2 MG/ML VIAL IV PUSH SCH (03:52)
[2017-12-23] MEDS: HYDROmorphone HCL PF 2 MG/ML VIAL IV PUSH PRN (03:58)
[2017-12-23 04:00] VITALS: BP_SYST 68; BP_SYST 74; BP_DIAS 35; BP_DIAS 41; PULSE 90; RESP 25; O2SAT 67
[2017-12-23] MEDS: HYDROCORTISONE SOD SUCCINATE 100 MG VIAL IV PUSH SCH (04:44)
[2017-12-23 04:45] LABS: HEMOGLOBIN 12.1 GM/DL (13.0-17.0); MEAN CELL VOLUME 98.3 FL (80.0-100.0); MEAN CORPUSCULAR HEMOGLOBIN 32.1 PG (27.0-34.0); MEAN CORPUSCULAR HGB CONC 32.6 % (32.0-36.0); MEAN PLATELET VOLUME 8.4 FL (7.0-11.0); PLATELET COUNT 171 TH/MM3 (150-450); RED BLOOD COUNT 3.77 MIL/MM3 (4.50-5.90); WHITE BLOOD COUNT 13.1 TH/MM3 (4.0-11.0)
[2017-12-23 05:17] LABS: BICARBONATE 21.7 MEQ/L (21.0-32.0); CALCIUM 8.8 MG/DL (8.5-10.1); CREATININE 2.42 MG/DL (0.60-1.30); RANDOM VANCOMYCIN 22.9 COMMENT
== END 2017-12-23 05:01 | disposition expired | DRG 207 ==
LOC: NEPC 00:11 → NEDA 01:56 → HIMN 03:05
PROVIDERS: ADMIT Internal Medicine Critical Care Medicine; ATTEND Internal Medicine Critical Care Medicine
PROC: 5A1955Z Respiratory Ventilation, Greater than 96 Consecutive Hours (ICD-10-PCS; principal; 2017-12-18)
PROC: 0BH17EZ Insertion of Endotracheal Airway into Trachea, Via Natural or Artificial Opening (ICD-10-PCS; 2017-12-18)
PROC: 03HY32Z Insertion of Monitoring Device into Upper Artery, Percutaneous Approach (ICD-10-PCS; 2017-12-18)
PROC: 05H533Z Insertion of Infusion Device into Right Subclavian Vein, Percutaneous Approach (ICD-10-PCS; 2017-12-18)
PROC: 5A09357 Assistance with Respiratory Ventilation, Less than 24 Consecutive Hours, Continuous Positive Airway Pressure (ICD-10-PCS; 2017-12-18)
DX: J96.01 Acute respiratory failure with hypoxia (principal); I21.4 Non-ST elevation (NSTEMI) myocardial infarction; R57.0 Cardiogenic shock; G93.41 Metabolic encephalopathy; E43 Unspecified severe protein-calorie malnutrition; I11.0 Hypertensive heart disease with heart failure; I50.23 Acute on chronic systolic (congestive) heart failure; N17.9 Acute kidney failure, unspecified; E87.1 Hypo-osmolality and hyponatremia; E87.2 Acidosis; I25.5 Ischemic cardiomyopathy; I25.2 Old myocardial infarction; Z95.5 Presence of coronary angioplasty implant and graft; Z95.810 Presence of automatic (implantable) cardiac defibrillator; Z68.25 Body mass index [BMI] 25.0-25.9, adult; E11.65 Type 2 diabetes mellitus with hyperglycemia; Z79.4 Long term (current) use of insulin; J44.9 Chronic obstructive pulmonary disease, unspecified; Z79.02 Long term (current) use of antithrombotics/antiplatelets; Z79.82 Long term (current) use of aspirin; Z51.5 Encounter for palliative care; E87.5 Hyperkalemia; E78.5 Hyperlipidemia, unspecified; H91.93 Unspecified hearing loss, bilateral; Z97.4 Presence of external hearing-aid; M10.9 Gout, unspecified; M19.012 Primary osteoarthritis, left shoulder; Z87.891 Personal history of nicotine dependence
CPT/HCPCS: 31500; 36600; 51702; 71045; 76705; 80048; 80053; 80074; 80076; 80162; 80202; 81001; 82550; 82552; 82805; 82948; 83605; 83735; 83880; 84484; 85014; 85018; 85025; 85027; 85610; 85730; 86850; 86900; 86901; 87040; 87070; 87077; 87086; 87186; 87205; 87641; 93005; 93306; 94002; 94003; 94640; 94664; 96374; 96375; J0330; J0780; J1170; J1265; J1644; J1720; J1815; J1940; J2060; J2250; J2260; J2543; J2765; J3370; J7040; J7050; P9047